=== PATIENT | female | born 1955 | race Caucasian/White ===

== ENCOUNTER → 2019-02-18 09:55 | Outpatient (BNVA) | payer SELFPAY | PROVIDERS: Family Provider Registered Nurse; PCP Registered Nurse; Visit Provider Nurse Practitioner Psychiatric/Mental Health | DX: F33.3 Major depressive disorder, recurrent, severe with psychotic symptoms; F41.1 Generalized anxiety disorder; F41.0 Panic disorder [episodic paroxysmal anxiety] | CPT/HCPCS: 99214 ==

== ENCOUNTER → 2019-05-29 08:04 | Outpatient (BNVA) | payer SELFPAY | PROVIDERS: Family Provider Registered Nurse; PCP Registered Nurse; Visit Provider Counselor Professional | DX: F41.0 Panic disorder [episodic paroxysmal anxiety] (principal); F41.1 Generalized anxiety disorder; F33.3 Major depressive disorder, recurrent, severe with psychotic symptoms; F22 Delusional disorders | CPT/HCPCS: 90834 ==

== ENCOUNTER → 2019-06-03 08:13 | Outpatient (BNVA) | payer SELFPAY | PROVIDERS: Family Provider Registered Nurse; PCP Registered Nurse; Visit Provider Nurse Practitioner Psychiatric/Mental Health | DX: F22 Delusional disorders (principal); F33.3 Major depressive disorder, recurrent, severe with psychotic symptoms; F41.1 Generalized anxiety disorder; F41.0 Panic disorder [episodic paroxysmal anxiety] | CPT/HCPCS: 99214 ==

== ENCOUNTER → 2019-06-05 08:24 | Outpatient (BNVA) | payer SELFPAY | PROVIDERS: Family Provider Registered Nurse; PCP Registered Nurse; Visit Provider Counselor Professional | DX: F22 Delusional disorders (principal); F33.3 Major depressive disorder, recurrent, severe with psychotic symptoms; F41.1 Generalized anxiety disorder; F41.0 Panic disorder [episodic paroxysmal anxiety] | CPT/HCPCS: 90834 ==

== ENCOUNTER → 2019-06-12 08:14 | Outpatient (BNVA) | payer MEDICAID, SELFPAY | PROVIDERS: Family Provider Registered Nurse; PCP Registered Nurse; Visit Provider Counselor Professional | DX: F22 Delusional disorders (principal); F33.3 Major depressive disorder, recurrent, severe with psychotic symptoms; F41.1 Generalized anxiety disorder; F41.0 Panic disorder [episodic paroxysmal anxiety] | CPT/HCPCS: 90834 ==

== ENCOUNTER → 2019-06-15 15:20 | Outpatient (BNVA) | payer SELFPAY | PROVIDERS: Family Provider Registered Nurse; PCP Registered Nurse; Visit Provider Nurse Practitioner Family | DX: N39.0 Urinary tract infection, site not specified (principal) | CPT/HCPCS: 81000 ==

== ENCOUNTER → 2019-06-19 08:24 | Outpatient (BNVA) | payer MEDICAID, SELFPAY | PROVIDERS: Family Provider Registered Nurse; PCP Registered Nurse; Visit Provider Counselor Professional | DX: F41.0 Panic disorder [episodic paroxysmal anxiety] (principal); F41.1 Generalized anxiety disorder; F22 Delusional disorders; F33.3 Major depressive disorder, recurrent, severe with psychotic symptoms | CPT/HCPCS: 90834; 80053; 84439; 84443; 84481 ==

== ENCOUNTER → 2019-06-25 13:02 | Outpatient (BNVA) | payer MEDICAID, SELFPAY | PROVIDERS: Family Provider Registered Nurse; PCP Registered Nurse; Visit Provider Orthopaedic Surgery | DX: M25.532 Pain in left wrist (principal) | CPT/HCPCS: 73110 ==

== ENCOUNTER → 2019-06-26 09:24 | Outpatient (BNVA) | payer MEDICAID, SELFPAY | PROVIDERS: Family Provider Registered Nurse; Visit Provider Counselor Professional | DX: F22 Delusional disorders (principal); F41.0 Panic disorder [episodic paroxysmal anxiety]; F41.1 Generalized anxiety disorder | CPT/HCPCS: 90834 ==

== ENCOUNTER → 2019-07-01 08:07 | Outpatient (BNVA) | payer MEDICAID, SELFPAY | PROVIDERS: Family Provider Registered Nurse; Visit Provider Nurse Practitioner Psychiatric/Mental Health | DX: F22 Delusional disorders (principal); F33.3 Major depressive disorder, recurrent, severe with psychotic symptoms; F41.1 Generalized anxiety disorder; F41.0 Panic disorder [episodic paroxysmal anxiety] | CPT/HCPCS: 99214 ==

== ENCOUNTER → 2019-07-02 08:20 | Outpatient (BNVA) | payer MEDICAID, SELFPAY | PROVIDERS: Family Provider Registered Nurse; Visit Provider Counselor Professional | DX: F41.0 Panic disorder [episodic paroxysmal anxiety] (principal); F41.1 Generalized anxiety disorder; F33.3 Major depressive disorder, recurrent, severe with psychotic symptoms; F22 Delusional disorders | CPT/HCPCS: 90834 ==

== ENCOUNTER → 2019-07-08 16:27 | Outpatient (BNVA) | payer MEDICAID, SELFPAY | PROVIDERS: Family Provider Registered Nurse; Visit Provider Internal Medicine | DX: G25.81 Restless legs syndrome (principal); Z12.11 Encounter for screening for malignant neoplasm of colon | CPT/HCPCS: 82607; 82746 ==

== ENCOUNTER → 2019-07-15 08:37 | Outpatient (BNVA) | payer MEDICAID, SELFPAY | PROVIDERS: Family Provider Registered Nurse; Visit Provider Counselor Professional | DX: F22 Delusional disorders (principal); F41.0 Panic disorder [episodic paroxysmal anxiety] | CPT/HCPCS: 90834 ==

== ENCOUNTER 2019-07-17 08:29 | Day surgery (SDC) | payer MEDICAID, SELFPAY ==
[2019-07-16 12:18] VITALS: BMI 35.4
[2019-07-17] VITALS (7 sets, daily range): BP systolic 102–192; BP diastolic 74–150; PULSE 70–100; RESP 17–24; TEMP 36.2–36.9; O2SAT 92–99
--- NOTE | 2019-07-17 | SCC_ITS ---
Procedure Done: Removal of deep hardware left distal radius and left distal ulna 4.3 seconds of fluoroscopic guidance, for a cumulative dose of 0.09 mGy, was provided to Dr. Vaca by the radiology department. C-arm images of the LEFT wrist were saved for the patient's permanent record. [facility]
--- NOTE | 2019-07-17 | XR_ITS ---
WS: [id number] XR wrist LT 2V [id number] REASON FOR EXAM: Hardwear removal FINDINGS: Interoperative hardware removal from the radius is noted the fracture line is seen but not open and shows good callus formation. XR/XR wrist LT 2V [id number] IMPRESSION: Removal of hardware from the radius.
--- NOTE | 2019-07-17 07:10 | W.PM.OPSUD ---
Surgery/Procedure H&P Update DATE OF PROCEDURE: July 17, 2019 DATE H&P PERFORMED: 06/25/19 H&P UPDATE INFORMATION: I have reviewed H&P completed within last 30 days, I have examined patient prior to procedure, No changes to prior documentation and H&P is in [facility] [place] [facility] EMR on date indicated PREOP DIAGNOSIS: retained harware left distal radius and ulna PRIMARY INDICATION FOR PROCEDURE: as above PLANNED PROCEDURE: Operation Date: 07/17/19 10:20 Proposed Procedures p Left wrist hardware removal 15614 S52.502A(Left) - Jose Vaca DO
--- NOTE | 2019-07-17 07:15 | PM.OP ---
Operative Report Date of procedure: July 17, 2019 Pre-op Diagnosis: retained harware left distal radius and ulna Post-op diagnosis: same Post-op Findings: healed fractures left distal radius and u Procedure Done: Removal of deep hardware left distal radius and left distal ulna Specimens removed/disposition: hardware removed and disposed of in OR Pathology: none sent Anesthesia: General and Nerve Block (Preoperative axillary nerve block for postoperative pain relief) Estimated blood loss (mL): 5 Tourniquet time (min): 77 (250 mmHg pressure) Complications: no apparent complications Findings: healed fractures left distal radius and ulna Condition: stable Disposition: PACU Brief History: 63-year-old white female who was previously undergone open reduction internal fixation of distal radius and ulna fractures with plate and screw fixation of both the distal radius and ulna fractures. She has some complaints of pain in and about her left wrist. She has that she has incomplete supination. She also notes that she has some decreased range of motion following surgery with regards to supination and pronation. Examination shows well-healed surgical scars. X-ray showed no obvious complication from her implants. We discussed with her that her implants could be causing her some discomfort. Risks of surgery include aren't limited to failure to relieve all symptoms. No gain in range of motion with either palmar flexion dorsiflexion of the wrist or with supination. There is the potential for nerve/blood vessel/tendon injury. There is potential for refracture. There can be wound healing complications. Medical complications of surgery can include blood clots, heart attack, stroke risk up to including . All questions were answered the patient was agreeable to proceed with surgery. Procedure: 1.5 g Zinacef The patient was identified. The surgical site was signed. Surgical permit was signed. Patient received a left-sided axillary nerve block for postoperative analgesia while in the preoperative holding area. The patient received 1.5 g of Zinacef intravenously for surgical prophylaxis. She was taken back to the operating room. She is placed supine on the operating room table. She is placed under general anesthesia without difficulty. A tourniquet was placed but the upper aspect of left upper extremity. The left upper extremity was then sterilely prepped and draped usual fashion. A timeout was performed. The operative limb was exsanguinated using Esmarch bandage and the tourniquet inflated to 250 mmHg pressure. With a skin knife we utilized a portion of the patient's incision over the distal ulna. Full-thickness skin flaps were made. We incised the antebrachial fascia and extended this to open the tendon sheath of the extensor carpi ulnaris tendon. The tendon was mobilized and the underlying plate and screws was identified. Using a periosteal elevator expose the underlying plate and screws. The screws were then removed with appropriate size screwdriver and the plate removed using a periosteal elevator to lever the plate off of the bone. The fracture was healed. We used a rongeur to remove placed areas of bony ingrowth around the screws and plate. This was then flushed. The wound was irrigated with Betadine-containing saline solution and antibiotic containing saline solution. We repaired the extensor carpi ulnaris tendon sheath with sutures of 4-0 Monocryl. Incision was then closed in layers with 4-0 nylon on skin. We now turned our attention to removal of the volar plate from the distal radius. Using a skin knife we used a portion of the patient's previous incision make full thickness skin flaps. We then identified the flexor carpi radialis tendon and mobilize the tendon and retracted radially. We then used blunt dissection to mobilize the flexor tendons and median nerve and ulnar direction. A self-retaining retractors placed in the wound. We used a knife followed by a periosteal elevator to sweep the pronator quadratus tendon from radial to ulnar to expose the underlying plate. We used a periosteal elevator to elevate bursal tissue that had grown over the plate. The plate was removed after a series of locking and nonlocking screws as well as pegs from the distal row of the plate were removed. Once the plate and screws removed from the used a rongeur to smooth the undersurface of the radius. The wound was irrigated Betadine-containing saline solution and antibiotic containing saline solution. Incision was closed in layers of 4-0 nylon on skin. Now that the hardware was removed to place the wrist through a range of motion. The patient came to full pronation easily as she had done prior to surgery. Is able to achieve near full supination while she was under anesthesia. As able to extend her wrist passively to 45? of palmar flex to 60?. Antibiotic ointment was now applied to the incision lines. Sterile dressings were applied and the patient was placed in a short arm plaster splint with an Glynn overwrap. Tourniquet was deflated during application of dressings. The patient was aroused from anesthesia. She was taken to the recovery room. She tolerated surgery well. All counts are correct.
[2019-07-17] MEDS: sodium chloride 0.9% 1,000 ML 30 ML IV (09:20)
--- NOTE | 2019-07-17 09:26 | ANES.PREANE2 ---
Pre-Anesthetic Assessment Pre-Anesthetic Assessment: Height/Weight: Height 1.6 m Weight 90.718 kg Temp Pulse Resp BP Pulse Ox 97.9 F 70 18 134/84 97 07/17/19 08:50 07/17/19 08:50 07/17/19 08:50 07/17/19 08:50 07/17/19 08:50 Preop Diagnosis: c Proposed Procedure: Operation Date: 07/17/19 10:20 Proposed Procedures p Left wrist hardware removal 34044 S52.502A(Left) - Jose Vaca DO Last intake: Intake Last Liquid Date 07/16/19 Last Liquid Time 21:00 Last Solid Date 07/16/19 Last Solid Time 21:00 Social: Social History: No alcohol and No tobacco Exam: Pre-Anes Outpt Exam: alert, oriented x 3, clear to auscultation bilaterally and regular rate & rhythm Airway: Submandibular: WNL Cervical ROM: WNL MP: 2 Dentition: Partials (lower) History/ROS: No significant history except as noted Pulmonary: Pulmonary: None reported CV/HEM: CV/HEM: None reported : : None reported Hepatic: Hepatic: None reported GI: GI: None reported Metabolic: Metabolic: Thyroid Musc/skel: Musc/skel: None reported Neuropsych: Neuropsych: Anxiety and Depression Comments: RLS Anesthetic Plan: ASA status: 2 Anesthesia: Anesthesia Evaluation and General Risk of > 500 ml blood loss (7ml/kg in children): No Meds/Allergies Current Medications: Current Medications Generic Name Dose Route Start Last Admin Trade Name Freq PRN Reason Stop Dose Admin Sodium Chloride 1,000 mls @ 30 ml s/hr 07/17/19 08:45 07/17/19 09:20 Sodium Chloride 0.9% IV 07/18/19 08:44 30 mls/hr .Q24H JADE Administration PFSH Anesthesia PFSH: Medical History Delusional disorders Depression, major, recurrent, 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
[2019-07-17] MEDS: ketorolac 30 mg/mL INJ IVP (09:58)
[2019-07-17] MEDS: cefUROXime 1,500 MG in sodium chloride 0.9% (plus) 50 ML 100 MG IV (10:15)
[2019-07-17] MEDS: neomycin-poly-bacitracin oint 28 gm 1 APPLIC TOPICAL (11:05)
--- NOTE | 2019-07-17 12:06 | SUR.PHASEI ---
1205 PATIENT TO PACU AT THIS TIME. ORAL AIRWAY IN PLACE. RR EVEN AND UNLABORED. PLACED ON SIMPLE MASK AT 8L. SPO2 99%. DRESSING TO LEFT WRIST, CDI.
--- NOTE | 2019-07-17 12:11 | SUR.PHASEI ---
1208 ORAL AIRWAY REMOVED AT THIS TIME. SPO2 99% ON SIMPLE MASK AT 8L.
--- NOTE | 2019-07-17 12:30 | SUR.PHASEI ---
1227 PATIENT TO OPS AT THIS TIME FROM PACU. PAIN 04/21, DENIES NAUSEA, TOLERATING ICE CHIPS. DRESSING TO LEFT WRIST, CDI.
== END 2019-07-17 13:23 | disposition home or self-care (01) ==
PROVIDERS: PCP Family Medicine; Visit Provider Orthopaedic Surgery
PROC: (CPT 20680; principal; 2019-07-17 10:20)
DX: T84.84XA Pain due to internal orthopedic prosthetic devices, implants and grafts, initial encounter (principal); E03.9 Hypothyroidism, unspecified
CPT/HCPCS: 20680; 12345; 73100; 76000; 96365; 96374; J0131; J0697; J1580; J1885; J2001; J2704; J3010; J3490; J7030

== ENCOUNTER → 2019-07-23 08:34 | Outpatient (BNVA) | payer MEDICAID, SELFPAY | PROVIDERS: PCP Family Medicine; Visit Provider Counselor Professional | DX: F41.0 Panic disorder [episodic paroxysmal anxiety] (principal); F22 Delusional disorders | CPT/HCPCS: 90834 ==

== ENCOUNTER → 2019-07-24 09:56 | Outpatient (BNVA) | payer MEDICAID, SELFPAY | PROVIDERS: PCP Family Medicine; Visit Provider Orthopaedic Surgery | DX: T84.82XA 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, implants and grafts, initial encounter (principal) | CPT/HCPCS: 73110 ==

== ENCOUNTER 2019-07-24 10:58 | Outpatient (CLI) | payer SELFPAY | END 2019-07-24 10:59 | disposition home or self-care (01) | LOC: SPT 10:59 | PROVIDERS: PCP Family Medicine; Visit Provider Orthopaedic Surgery | DX: Z47.89 Encounter for other orthopedic aftercare (principal) | CPT/HCPCS: 97760; L3908 ==

== ENCOUNTER 2019-07-25 08:22 | Day surgery (SDC) | payer MEDICAID, SELFPAY ==
[2019-07-23 13:32] VITALS: BMI 36.8
[2019-07-25 08:35] VITALS: BP 152/88; PULSE 90; RESP 18; TEMP 36.4; O2SAT 94
[2019-07-25] MEDS: sodium chloride 0.9% 1,000 ML 30 ML IV (08:49)
--- NOTE | 2019-07-25 08:51 | ANES.PREANE2 ---
Pre-Anesthetic Assessment Pre-Anesthetic Assessment: Height/Weight: Height 1.6 m Weight 94.347 kg Temp Pulse Resp BP Pulse Ox 97.5 F L 90 18 152/88 94 07/25/19 08:35 07/25/19 08:35 07/25/19 08:35 07/25/19 08:35 07/25/19 08:35 Preop Diagnosis: c Proposed Procedure: Operation Date: 07/25/19 09:30 Proposed Procedures p Colonoscopy 32294 Z12.11(Not Applicable) - Cristi Miller MD Was Beta Chip taken within 24 hours: N/A Last intake: Intake Last Liquid Date 07/24/19 Last Liquid Time 22:00 Last Solid Date 07/23/19 Last Solid Time 20:00 Social: Social History: No alcohol and No tobacco Exam: Pre-Anes Outpt Exam: alert, oriented x 3, clear to auscultation bilaterally and regular rate & rhythm Airway: Submandibular: WNL Cervical ROM: WNL MP: 2 Dentition: Full History/ROS: No significant history except as noted Pulmonary: Pulmonary: None reported CV/HEM: CV/HEM: None reported : : None reported Hepatic: Hepatic: None reported GI: GI: None reported Metabolic: Metabolic: Thyroid Musc/skel: Musc/skel: None reported Neuropsych: Neuropsych: Depression Anesthetic Plan: ASA status: 2 Anesthesia: MAC Meds/Allergies Current Medications: Current Medications Generic Name Dose Route Start Last Admin Trade Name Freq PRN Reason Stop Dose Admin Sodium Chloride 1,000 mls @ 30 ml s/hr 07/25/19 08:45 07/25/19 08:49 Sodium Chloride 0.9% IV 07/26/19 08:44 30 mls/hr .Q24H JADE Administration PFSH Anesthesia PFSH: Medical History Delusional disorders Depression, major, recurrent, 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
--- NOTE | 2019-07-25 09:37 | W.PM.OPSFHP ---
Same Day Surgery H&P Indication for Procedure/HPI DATE OF PROCEDURE: July 25, 2019 CHIEF COMPLAINT/INDICATIONFOR SURGICAL PROCEDURE: Routine screening average risk PREOP DIAGNOSIS: c PLANNED PROCEDRUE: Operation Date: 07/25/19 09:30 Proposed Procedures p Colonoscopy 51774 Z12.11(Not Applicable) - Cristi Miller MD Medications/Allergies* Allergies/Adverse Reactions Allergy/AdvReac Type Severity Reaction Status Date / Time poison leslie extract Allergy Unknown rash Verified 07/24/19 10:02 haloperidol [From Haldol] AdvReac Unknown Unknown Verified 07/24/19 10:02 Current Medications: Generic Name Dose Route Start Last Admin Trade Name Freq PRN Reason Stop Dose Admin Sodium Chloride 1,000 mls @ 30 mls/hr 07/25/19 08:45 07/25/19 08:49 Sodium Chloride 0.9% IV 07/26/19 08:44 30 mls/hr .Q24H JADE Administration Pertinent History/Comorbid Conditions* Medical History (Updated 07/08/19 @ 13:34 by Cristi Miller MD) Delusional disorders Depression, major, recurrent, 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, implants and grafts, initial encounter Frontal lobe dementia Generalized anxiety disorder with panic attacks 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 Panic disorder Restless leg syndrome Surgical History (Updated 02/14/19 @ 14:06 by Sharifa Doss LPN) History of partial hysterectomy History of tonsillectomy and adenoidectomy Hx of bilateral breast reduction surgery Hx of cholecystectomy Social History Smoking and tobacco status: never smoked Alcohol intake: never History of recent travel: No Pertinent Exam Findings alert, oriented x 3, clear to auscultation bilaterally, regular rate & rhythm, operative site marked and procedure specific exam findings Recommendations Surgery/Procedure today Coding Level of Care Code Acute Firer Low Pressure for Emre Staples
[2019-07-25 10:09] VITALS: BP 146/71; PULSE 97; RESP 18; TEMP 36.8; O2SAT 96
[2019-07-25 10:23] VITALS: BP 126/76; PULSE 94; RESP 18; O2SAT 94
--- NOTE | 2019-07-25 10:36 | ANE.PACU2 ---
Inpatient post-anesthesia follow up: Airway intact: Yes Vital signs: Temperature 98.2 F Pulse Rate 94 Respiratory Rate 18 Blood Pressure 126/76 Pulse Oximetry 94 Oxygen Delivery Me thod Room Air Oxygen Flow Rate Fraction of Inspir ed Oxygen Hydration adequate: Yes Nausea and vomiting: No Mental status: Baseline
== END 2019-07-25 10:27 | disposition home or self-care (01) ==
PROVIDERS: PCP Family Medicine; Visit Provider Internal Medicine
PROC: 0DJD8ZZ Inspection of Lower Intestinal Tract, Via Natural or Artificial Opening Endoscopic (ICD-10-PCS; CPT 45378; principal; 2019-07-25 09:30)
DX: Z12.11 Encounter for screening for malignant neoplasm of colon (principal); F32.9 Major depressive disorder, single episode, unspecified; F33.9 Major depressive disorder, recurrent, unspecified; F41.9 Anxiety disorder, unspecified; E03.9 Hypothyroidism, unspecified
CPT/HCPCS: 12345; 45378; J2704; J3490; J7030

== ENCOUNTER → 2019-08-01 07:38 | Outpatient (BNVA) | payer SELFPAY | PROVIDERS: PCP Family Medicine; Visit Provider Nurse Practitioner Psychiatric/Mental Health | DX: F22 Delusional disorders (principal); F33.3 Major depressive disorder, recurrent, severe with psychotic symptoms; F41.1 Generalized anxiety disorder; F41.0 Panic disorder [episodic paroxysmal anxiety]; F43.12 Post-traumatic stress disorder, chronic | CPT/HCPCS: 99214 ==

== ENCOUNTER → 2019-08-06 12:36 | Outpatient (BNVA) | payer MEDICAID, SELFPAY | PROVIDERS: PCP Family Medicine; Visit Provider Specialist | DX: F22 Delusional disorders (principal); F41.1 Generalized anxiety disorder; F41.0 Panic disorder [episodic paroxysmal anxiety]; F33.3 Major depressive disorder, recurrent, severe with psychotic symptoms | CPT/HCPCS: 96116; 99215 ==

== ENCOUNTER → 2019-08-07 08:29 | Outpatient (BNVA) | payer MEDICAID, SELFPAY | PROVIDERS: PCP Family Medicine; Visit Provider Counselor Professional | DX: F22 Delusional disorders (principal); F33.3 Major depressive disorder, recurrent, severe with psychotic symptoms; F41.1 Generalized anxiety disorder; F41.0 Panic disorder [episodic paroxysmal anxiety] | CPT/HCPCS: 90834 ==

== ENCOUNTER 2019-08-08 09:42 | Outpatient (CLI) | payer MEDICAID, SELFPAY ==
--- NOTE | 2019-08-08 09:54 | MR_ITS ---
WS: [id number] MRI BRAIN WITHOUT CONTRAST HISTORY: DELUSIONAL DISORDERS COMPARISON: 03/23/2016 TECHNIQUE: Diffusion imaging, multiplanar T1, T2 and FLAIR imaging obtained. No evidence for acute infarct or hemorrhage. Cleary-white matter differentiation is normal. No acute infarct. There are numerous scattered T2 and FLAIR signal hyperintensities in the periventri cular and subcortical white matter which have not significantly progressed. Mild atrophy. Ventricles and extra-axial spaces are normal. No inferior displacement of cerebellar tonsils. The sella turcica and pituitary gland are unremarkabl e. Posterior fossa is also unremarkable. Dural venous sinuses and knik of Wheeler demonstrate no abnormality on this unenhanced studies. Paranasal sinuses: Clear. Mastoid air cells: Normal. Calvarium and scalp: Intact. MR/MR head wo con* [id number] IMPRESSION: 1. No acute infarct. 2. Mild atrophy and mild chronic microvascular ischemic disease. Similar appea ba to 03/23/2016.
== END 2019-08-08 09:43 | disposition home or self-care (01) ==
LOC: RADSHAW 09:46
PROVIDERS: PCP Family Medicine; Visit Provider Specialist
DX: F22 Delusional disorders (principal)
CPT/HCPCS: 70551

== ENCOUNTER → 2019-08-12 18:00 | Outpatient (BNVA) | payer MEDICAID, SELFPAY | PROVIDERS: PCP Family Medicine; Visit Provider Family Medicine | DX: E03.9 Hypothyroidism, unspecified (principal); E03.8 Other specified hypothyroidism; E06.3 Autoimmune thyroiditis; I10 Essential (primary) hypertension; R60.0 Localized edema; R10.9 Unspecified abdominal pain | CPT/HCPCS: 84439; 84443; 84481 ==

== ENCOUNTER → 2019-08-14 15:00 | Outpatient (BNVA) | payer MEDICAID, SELFPAY | PROVIDERS: Visit Provider Counselor Professional | DX: F22 Delusional disorders (principal); F33.3 Major depressive disorder, recurrent, severe with psychotic symptoms; F41.1 Generalized anxiety disorder; F41.0 Panic disorder [episodic paroxysmal anxiety] | CPT/HCPCS: 90834 ==

== ENCOUNTER → 2019-11-04 12:39 | Outpatient (BNVA) | payer MEDICAID, SELFPAY | PROVIDERS: Visit Provider Nurse Practitioner Family | DX: Z20.828 Contact with and (suspected) exposure to other viral communicable diseases (principal) | CPT/HCPCS: 87635 ==

== ENCOUNTER 2019-11-07 14:36 | Inpatient (IN) | payer MEDICAID, SELFPAY ==
[2019-11-07 14:59] VITALS: BP 154/94; PULSE 93; RESP 18; TEMP 36.4; O2SAT 96; BMI 35.4
[2019-11-07 15:59] LABS: Amphetamines Screen Urine Negative (Negative); Barbiturates Screen Urine Negative (Negative); Benzodiazepines Screen Urine Negative (Negative); Cocaine Screen Urine Negative (Negative); Opiate Screen Urine Negative (Negative); PCP Screen Urine Negative (Negative); THC Screen Urine Negative (Negative)
[2019-11-07 16:05] LABS: Add Urine Microscopic? YES; Bilirubin Urine Neg (Negative); Blood Urine 2+ (Negative); Glucose Urine UA Norm (Normal); Ketones Urine Negative (Negative); Leukocyte Esterase Urine Negative (Negative); Nitrate Urine Negative (Negative); Protein Urine Neg (Negative); Urine Appearance SL Hazy (CLEAR); Urine Color Yellow (Yellow); Urobilinogen Urine Neg (Negative); pH Urine 5 (5-7)
[2019-11-07 16:06] LABS: Add Urine Culture? Yes; Bacteria Urine 1+ /hpf; Mucus Urine 2+ /hpf; RBC Urine 0-4 /hpf (0-2); Squamous Epithelial Cell Urine 0-4 /hpf (0-5); WBC Urine 0-4 /hpf (0-5)
--- NOTE | 2019-11-07 16:14 | XR_ITS ---
WS: [id number] Portable AP upright chest, 11/07/2019 Clinical Data: altered thought process Comparison: PA and lateral chest, 11/10/2017. Findings: No nodules, masses or effusions are seen. The heart is normal. The pulmonary vascularity is not increased. No pneumonia or pneumothorax is seen. The aortic arch and descending aorta are minima lly tortuous. XR/XR chest 1V portable [id number] Impression: Atherosclerosis.
--- NOTE | 2019-11-07 16:14 | ECG_ITS ---
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 Measurements Intervals [place] Rate: 73 P: 57 VT: 165 QRS: 33 QRSD: 85 T: 42 QT: 374 QTc: 413 Interpretive Statements SINUS RHYTHM Compared to ECG 11/10/2017 21:37:39 No significant changes Electronically Signed On 11-07-2019 16:34:27 CDT by Alan Valdes M.D. [id number]
[2019-11-07 16:22] LABS: Basophils % 0.2 %; Hematocrit 46.7 % (37.0-47.0); Hemoglobin 15.2 g/dL (11.5-15.3); Lymphocytes # 1.4 10^3/uL (0.8-4.8); Lymphocytes % 23.1 %; Mean Corpuscular HGB Conc 32.5 g/dL (30.0-36.0); Mean Corpuscular Hemoglobin 29.2 pg (28.0-34.0); Mean Corpuscular Volume 89.8 fL (81-99); Mean Platelet Volume 10.5 fL (7.4-10.4); Monocytes # 0.5 10^3/uL (0.2-0.9); Neutrophils # 4.18 10^3/uL (1.8-7.7); Neutrophils % 68.5 %; Nucleated Red Blood Cells % 0 %; Platelet Count 232 10^3/cmm (130-400); Red Cell Distribution Width 12.2 % (12.1-15.1); White Blood Count 6.1 10^3/uL (4.0-10.0)
[2019-11-07] MEDS: LORazepam 1 mg Tablet PO (16:43)
--- NOTE | 2019-11-07 16:54 | ED_ITS ---
Documented by User: Sarah Ro 11/07/19 16:59 HPI - Psych General: Chief Complaint: Psychiatric Symptoms Stated Complaint: MHE Time Seen by Provider: 11/07/19 15:46 Source: patient Mode of arrival: ambulatory Limitations: no limitations History of Present Illness: HPI Narrative: Pt presents to ER stating she is having auditory and visual hallucinations. Pt states she thinks the FBI is sending her coded messages and that her family is in danger. Pt states she stopped taking her behavioral meds back in August due to sisde effects. Pt denies SI or HI. Pt states she has had to have admission for this behavior in the past. Pt denies and other complaints. PT afebrile denies urinary symptoms denies chest pain SOB denies abd pain History of same: Yes Relieving factors: none Exacerbating factors: none Associated psychiatric symptoms: auditory hallucinations, visual hallucinations and delusions Associated symptoms: Reports auditory hallucinations, visual hallucinations and delusions; Deny depression, homicidal ideation, suicidal ideation or racing thoughts Treatments prior to arrival: none Review of Systems General: Reports: 10 or more systems reviewed and unremarkable except in HPI and below Const: Denies: fever(s) or chills Eyes: Denies: change in vision, blurry vision or blind spots Card: Denies: chest pain or palpitations Resp: Denies: dyspnea, productive cough, non-productive cough, wheezing, stridor or pain on inspiration GI: Denies: abdominal pain, nausea or vomiting : Denies: flank pain, difficulty voiding, dysuria or urinary frequency Musc: Denies: neck pain, back pain, extremity pain or extremity swelling Skin/Breast: Denies: rash or pruritus Psych: Reports: visual hallucinations and auditory hallucinations; Denies: depression, suicidal ideation or homicidal ideation [facility] ED PFSH: Medical History Delusional disorders Depression, major, recurrent, 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, implants and grafts, initial encounter Frontal lobe dementia Generalized anxiety disorder with panic attacks 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 Panic disorder Restless leg syndrome Surgical History History of partial hysterectomy History of tonsillectomy and adenoidectomy Hx of bilateral breast reduction surgery Hx of cholecystectomy Status post hardware removal Social History Smoking and tobacco status: never smoked Alcohol intake: never History of recent travel: No Financial difficulty paying for basics: Decline to Answer Physical Exam Const: COMMON NORMALS: no acute distress, average body habitus, patient oriented x3, no limitations, healthy appearing, alert and well nourished HENMT: COMMON NORMALS: normocephalic, atraumatic, hearing grossly normal bilaterally, external ears normal, EAC's normal, TM's normal bilaterally, Normal external nose present, Normal nasal mucous membranes and turbinates present, moist oral mucous membranes, oropharynx normal, dentition normal and gingiva normal HEAD & SCALP: normocephalic and atraumatic NOSE: Normal external nose present and Normal nasal mucous membranes and turbinates present EXTERNAL EAR: Yes external ears normal EXTERNAL AUDITORY CANAL: EAC's normal TYMPANIC MEMBRANE: TM's normal bilaterally Eye: COMMON NORMALS: Equal, round and reactive pupils present, EOMs intact bilaterally, conjunctivae normal, no scleral icterus, no papilledema, normal visual garza by confrontation and fundi normal bilaterally CONJUNCTIVA: Yes conjunctivae normal PUPIL: Yes Equal, round and reactive pupils present DIRECT OPHTHALMOSCOPY: Yes no papilledema and Yes fundi normal bilaterally Neck/C-Spine: COMMON NORMALS: full ROM, no lymphadenopathy, supple, no meningeal signs, no JVD, Thyroid normal and No carotid bruits THYROID: Thyroid normal Lymph: LYMPHATIC: no lymphadenopathy noted Chest: COMMONS NORMALS: normal inspection of the chest, normal palpation of entire chest wall, normal inspection of the breasts and normal palpation of the breasts Resp: COMMON NORMALS: normal respiratory effort, No retractions, No use of accessory muscles, clear to auscultation bilaterally and percussion normal AUSCULTATION: clear to auscultation bilaterally PERCUSSION: percussion normal Cardio: COMMON NORMALS: no JVD, regular rate and regular rhythm RATE: regular rate RHYTHM: regular rhythm GI: COMMON NORMALS: Normal to inspection, nondistended, normoactive bowel sounds present, Soft to palpation, non-tender, No hepatosplenomegaly present, no masses and no bruits PALPATION: Yes Soft to palpation and Yes No hepatosplenomegaly present : COMMON NORMALS: Yes normal external appearance, Yes normal appearance of the vagina, Yes normal appearance of the cervix, Yes No adnexal tenderness and Yes no masses Extremity: COMMON NORMALS: normal to inspection, full ROM, capillary refill normal, no joint enlargement, no clubbing, cyanosis or edema, no calf tenderness and no pedal edema Neuro: COMMON NORMALS: patient oriented x3, CN's II-XII intact bilaterally, moves all extremities, no focal motor deficits, no sensory deficits noted, deep tendon reflexes 2+ bilaterally and gait normal SENSORIUM/ORIENTATION: Yes alert MENINGEAL SIGNS: Yes no meningeal signs Psych: COMMON NORMALS: speech normal, denies homicidal ideation and denies suicidal ideation APPEARANCE: Yes grossly normal ATTITUDE: Yes paranoid, Yes Withdrawn affect present and Yes Guarded attititude/behavior present ACTIVITY/MOTOR BEHAVIOR: Yes appropriate eye contact SPEECH: Yes normal speech MOOD & AFFECT: Yes anxious, Yes fearful and Yes Flat affect present THOUGHT PROCESS: disorganized and Flight of ideas present THOUGHT CONTENT: Yes delusions ATTENTION/CONCENTRATION: Yes attention grossly intact MEMORY/COGNITION: Yes memory grossly intact INSIGHT: questionable JUDGEMENT: questionable MDM - Psych Lab Data: Labs: Lab Results 11/07/19 11/07/19 11/07/19 Range/Units 15:34 15:34 16:14 WBC 6.1 (4.0-10.0) 10^3/ uL RBC 5.20 (4.1-5.3) 10^6/u L Hgb 15.2 (11.5-15.3) g/dL Hct 46.7 (37.0-47.0) % MCV 89.8 (81-99) fL MCH 29.2 (28.0-34.0) pg MCHC 32.5 (30.0-36.0) g/dL RDW 12.2 (12.1-15.1) % Plt Count 232 (130-400) 10^3/c mm MPV 10.5 H (7.4-10.4) fL Neut % (Auto) 68.5 % Lymph % (Auto) 23.1 % Campbell % (Auto) 8.0 % Eos % (Auto) 0.0 % Baso % (Auto) 0.2 % Neut # (Auto) 4.18 (1.8-7.7) 10^3/u L Lymph # (Auto) 1.4 (0.8-4.8) 10^3/u L Campbell # (Auto) 0.5 (0.2-0.9) 10^3/u L Eos # (Auto) 0.0 (0.0-0.8) 10^3/u L Baso # (Auto) 0.0 (0.0-0.1) 10^3/u L Nucleated RBC % (a uto) 0 % Nucleated RBCs # 0.0 /100WBC Sodium (136-145) mmol/L Potassium (3.5-5.1) mmol/L Chloride (98-107) mmol/L Carbon Dioxide (22-29) mmol/L Anion Gap (5-19) BUN (8-23) mg/dL Creatinine (0.5-0.9) mg/dL GFR Calculation (90-130) mL/min Glucose (65-115) mg/dL Calculated Osmolal ity (285-295) mOsm/k g Calcium (8.5-10.5) mg/dL Total Bilirubin (0.15-1.2) mg/dL AST (0-32) U/L ALT (0-33) U/L Alkaline Phosphata se (35-105) IU/L Total Protein (6.6-8.7) g/dL Albumin (3.5-5.2) g/dL Globulin (1.3-4.6) g/dL TSH (0.27-4.20) uIU/ mL Urine Color Yellow (Yellow) Urine Appearance Sl hazy (CLEAR) Urine pH 5 (5-7) Ur Specific Gravit y 1.020 (1.005-1.030) Urine Protein Neg (Negative) Urine Glucose (UA) Norm (Normal) Urine Ketones Negative (Negative) Urine Blood 2+ H (Negative) Urine Nitrate Negative (Negative) Urine Bilirubin Neg (Negative) Urine Urobilinogen Neg (Negative) mg/dL Ur Leukocyte [place] ase Negative (Negative) Urine RBC 0-4 H (0-2) /hpf Urine WBC 0-4 H (0-5) /hpf Ur Squamous Epith Cells 0-4 H (0-5) /hpf Amorphous Sediment Not Reportable Urine Bacteria 1+ H (NONE) /hpf Urine Mucus 2+ /hpf Salicylates (3-10) mg/dL Urine Opiates Scre en Negative (Negative) ng/mL Acetaminophen (10-30) ug/mL Ur Barbiturates Sc reen Negative (Negative) ng/mL Ur Phencyclidine S crn Negative (Negative) ng/mL Ur Amphetamines Sc reen Negative (Negative) ng/mL U Benzodiazepines Scrn Negative (Negative) ng/mL [place] (0.6-1.2) mmol/L Urine Cocaine Scre en Negative (Negative) ng/mL U Marijuana (THC) Screen Negative (Negative) ng/mL Ethyl Alcohol (0-10) mg/dL 11/07/19 11/07/19 11/07/19 Range/Units 16:14 16:14 16:42 WBC (4.0-10.0) 10^3/ uL RBC (4.1-5.3) 10^6/u L Hgb (11.5-15.3) g/dL Hct (37.0-47.0) % MCV (81-99) fL MCH (28.0-34.0) pg MCHC (30.0-36.0) g/dL RDW (12.1-15.1) % Plt Count (130-400) 10^3/c mm MPV (7.4-10.4) fL Neut % (Auto) % Lymph % (Auto) % Campbell % (Auto) % Eos % (Auto) % Baso % (Auto) % Neut # (Auto) (1.8-7.7) 10^3/u L Lymph # (Auto) (0.8-4.8) 10^3/u L Campbell # (Auto) (0.2-0.9) 10^3/u L Eos # (Auto) (0.0-0.8) 10^3/u L Baso # (Auto) (0.0-0.1) 10^3/u L Nucleated RBC % (a uto) % Nucleated RBCs # /100WBC Sodium 139 (136-145) mmol/L Potassium 3.3 L (3.5-5.1) mmol/L Chloride 99 (98-107) mmol/L Carbon Dioxide 29 (22-29) mmol/L Anion Gap 14.3 (5-19) BUN 16 (8-23) mg/dL Creatinine 1.0 H (0.5-0.9) mg/dL GFR Calculation 56.2 L (90-130) mL/min Glucose 97 (65-115) mg/dL Calculated Osmolal ity 289 (285-295) mOsm/k g Calcium 9.9 (8.5-10.5) mg/dL Total Bilirubin 0.3 (0.15-1.2) mg/dL AST 22 (0-32) U/L ALT 23 (0-33) U/L Alkaline Phosphata se 77 (35-105) IU/L Total Protein 6.9 (6.6-8.7) g/dL Albumin 4.2 (3.5-5.2) g/dL Globulin 2.7 (1.3-4.6) g/dL TSH 0.46 (0.27-4.20) uIU/ mL Urine Color (Yellow) Urine Appearance (CLEAR) Urine pH (5-7) Ur Specific Gravit y (1.005-1.030) Urine Protein (Negative) Urine Glucose (UA) (Normal) Urine Ketones (Negative) Urine Blood (Negative) Urine Nitrate (Negative) Urine Bilirubin (Negative) Urine Urobilinogen (Negative) mg/dL Ur Leukocyte [place] ase (Negative) Urine RBC (0-2) /hpf Urine WBC (0-5) /hpf Ur Squamous Epith Cells (0-5) /hpf Amorphous Sediment Urine Bacteria (NONE) /hpf Urine Mucus /hpf Salicylates < 0.3 L (3-10) mg/dL Urine Opiates Scre en (Negative) ng/mL Acetaminophen < 5.0 L Cancelled (10-30) ug/mL Ur Barbiturates Sc reen (Negative) ng/mL Ur Phencyclidine S crn (Negative) ng/mL Ur Amphetamines Sc reen (Negative) ng/mL U Benzodiazepines Scrn (Negative) ng/mL [place] 0.1 L (0.6-1.2) mmol/L Urine Cocaine Scre en (Negative) ng/mL U Marijuana (THC) Screen (Negative) ng/mL Ethyl Alcohol < 10 (0-10) mg/dL Discharge Plan Discharge Admit Provider: Mo Mauro Discharge Date/Time: 11/07/19 20:22 Sign Out Sign Out Data: Patient Sign Out occurred on 11/07/19 at 17:12. Patient's care was discussed, and care was transferred from to GATITO Martínez. 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 Patient has delusions that government is contacting her and sending her messages that her family is in danger. Patient admits to being off of her psych medications for the past 2 months. All psych prescreening labs were performed here in the ED. I contacted Dr. Mauro discussed patient case with him. He agreed to have patient admitted into [facility]. Dr. Castro placed the admitting orders for patient to go to the [facility]. Lab Data: Attestation: I reviewed the patient's lab results. Labs: Lab Results 11/07/19 11/07/19 11/07/19 Range/Units 15:34 15:34 16:14 WBC 6.1 (4.0-10.0) 10^3/ uL RBC 5.20 (4.1-5.3) 10^6/u L Hgb 15.2 (11.5-15.3) g/dL Hct 46.7 (37.0-47.0) % MCV 89.8 (81-99) fL MCH 29.2 (28.0-34.0) pg MCHC 32.5 (30.0-36.0) g/dL RDW 12.2 (12.1-15.1) % Plt Count 232 (130-400) 10^3/c mm MPV 10.5 H (7.4-10.4) fL Neut % (Auto) 68.5 % Lymph % (Auto) 23.1 % Campbell % (Auto) 8.0 % Eos % (Auto) 0.0 % Baso % (Auto) 0.2 % Neut # (Auto) 4.18 (1.8-7.7) 10^3/u L Lymph # (Auto) 1.4 (0.8-4.8) 10^3/u L Campbell # (Auto) 0.5 (0.2-0.9) 10^3/u L Eos # (Auto) 0.0 (0.0-0.8) 10^3/u L Baso # (Auto) 0.0 (0.0-0.1) 10^3/u L Nucleated RBC % (a uto) 0 % Nucleated RBCs # 0.0 /100WBC Sodium (136-145) mmol/L Potassium (3.5-5.1) mmol/L Chloride (98-107) mmol/L Carbon Dioxide (22-29) mmol/L Anion Gap (5-19) BUN (8-23) mg/dL Creatinine (0.5-0.9) mg/dL GFR Calculation (90-130) mL/min Glucose (65-115) mg/dL Calculated Osmolal ity (285-295) mOsm/k g Calcium (8.5-10.5) mg/dL Total Bilirubin (0.15-1.2) mg/dL AST (0-32) U/L ALT (0-33) U/L Alkaline Phosphata se (35-105) IU/L Total Protein (6.6-8.7) g/dL Albumin (3.5-5.2) g/dL Globulin (1.3-4.6) g/dL TSH (0.27-4.20) uIU/ mL Urine Color Yellow (Yellow) Urine Appearance Sl hazy (CLEAR) Urine pH 5 (5-7) Ur Specific Gravit y 1.020 (1.005-1.030) Urine Protein Neg (Negative) Urine Glucose (UA) Norm (Normal) Urine Ketones Negative (Negative) Urine Blood 2+ H (Negative) Urine Nitrate Negative (Negative) Urine Bilirubin Neg (Negative) Urine Urobilinogen Neg (Negative) mg/dL Ur Leukocyte [place] ase Negative (Negative) Urine RBC 0-4 H (0-2) /hpf Urine WBC 0-4 H (0-5) /hpf Ur Squamous Epith Cells 0-4 H (0-5) /hpf Amorphous Sediment Not Reportable Urine Bacteria 1+ H (NONE) /hpf Urine Mucus 2+ /hpf Salicylates (3-10) mg/dL Urine Opiates Scre en Negative (Negative) ng/mL Acetaminophen (10-30) ug/mL Ur Barbiturates Sc reen Negative (Negative) ng/mL Ur Phencyclidine S crn Negative (Negative) ng/mL Ur Amphetamines Sc reen Negative (Negative) ng/mL U Benzodiazepines Scrn Negative (Negative) ng/mL [place] (0.6-1.2) mmol/L Urine Cocaine Scre en Negative (Negative) ng/mL U Marijuana (THC) Screen Negative (Negative) ng/mL Ethyl Alcohol (0-10) mg/dL 11/07/19 11/07/19 11/07/19 Range/Units 16:14 16:14 16:42 WBC (4.0-10.0) 10^3/ uL RBC (4.1-5.3) 10^6/u L Hgb (11.5-15.3) g/dL Hct (37.0-47.0) % MCV (81-99) fL MCH (28.0-34.0) pg MCHC (30.0-36.0) g/dL RDW (12.1-15.1) % Plt Count (130-400) 10^3/c mm MPV (7.4-10.4) fL Neut % (Auto) % Lymph % (Auto) % Campbell % (Auto) % Eos % (Auto) % Baso % (Auto) % Neut # (Auto) (1.8-7.7) 10^3/u L Lymph # (Auto) (0.8-4.8) 10^3/u L Campbell # (Auto) (0.2-0.9) 10^3/u L Eos # (Auto) (0.0-0.8) 10^3/u L Baso # (Auto) (0.0-0.1) 10^3/u L Nucleated RBC % (a uto) % Nucleated RBCs # /100WBC Sodium 139 (136-145) mmol/L Potassium 3.3 L (3.5-5.1) mmol/L Chloride 99 (98-107) mmol/L Carbon Dioxide 29 (22-29) mmol/L Anion Gap 14.3 (5-19) BUN 16 (8-23) mg/dL Creatinine 1.0 H (0.5-0.9) mg/dL GFR Calculation 56.2 L (90-130) mL/min Glucose 97 (65-115) mg/dL Calculated Osmolal ity 289 (285-295) mOsm/k g Calcium 9.9 (8.5-10.5) mg/dL Total Bilirubin 0.3 (0.15-1.2) mg/dL AST 22 (0-32) U/L ALT 23 (0-33) U/L Alkaline Phosphata se 77 (35-105) IU/L Total Protein 6.9 (6.6-8.7) g/dL Albumin 4.2 (3.5-5.2) g/dL Globulin 2.7 (1.3-4.6) g/dL TSH 0.46 (0.27-4.20) uIU/ mL Urine Color (Yellow) Urine Appearance (CLEAR) Urine pH (5-7) Ur Specific Gravit y (1.005-1.030) Urine Protein (Negative) Urine Glucose (UA) (Normal) Urine Ketones (Negative) Urine Blood (Negative) Urine Nitrate (Negative) Urine Bilirubin (Negative) Urine Urobilinogen (Negative) mg/dL Ur Leukocyte [place] ase (Negative) Urine RBC (0-2) /hpf Urine WBC (0-5) /hpf Ur Squamous Epith Cells (0-5) /hpf Amorphous Sediment Urine Bacteria (NONE) /hpf Urine Mucus /hpf Salicylates < 0.3 L (3-10) mg/dL Urine Opiates Scre en (Negative) ng/mL Acetaminophen < 5.0 L Cancelled (10-30) ug/mL Ur Barbiturates Sc reen (Negative) ng/mL Ur Phencyclidine S crn (Negative) ng/mL Ur Amphetamines Sc reen (Negative) ng/mL U Benzodiazepines Scrn (Negative) ng/mL [place] 0.1 L (0.6-1.2) mmol/L Urine Cocaine Scre en (Negative) ng/mL U Marijuana (THC) Screen (Negative) ng/mL Ethyl Alcohol < 10 (0-10) mg/dL Discharge Plan Discharge Admit Provider: Mo Mauro Discharge Date/Time: 11/07/19 20:22 Sign Out Sign Out Data: Patient Sign Out occurred on 11/07/19 at 17:12. Patient's care was discussed, and care was transferred from to GATITO Martínez. Coding Level of Care Code ED Municipal [employer] Judge for Chg Fwd Exam Comprehensive
[2019-11-07 17:07] LABS: Alanine Aminotransferase 23 U/L (0-33); Albumin Level 4.2 g/dL (3.5-5.2); Alkaline Phosphatase 77 IU/L (35-105); Anion Gap 14.3 (5-19); Aspartate Amino Transferase 22 U/L (0-32); Blood Urea Nitrogen 16 mg/dL (8-23); Calcium 9.9 mg/dL (8.5-10.5); Carbon Dioxide 29 mmol/L (22-29); Chloride 99 mmol/L (98-107); Globulin 2.7 g/dL (1.3-4.6); Glomerular Filtration Rate 56.2 mL/min (90-130); Glucose 97 mg/dL (65-115); Osmolality Calculated 289 mOsm/kg (285-295); Potassium 3.3 mmol/L (3.5-5.1); Sodium 139 mmol/L (136-145); Thyroid Stimulating Hormone 0.46 uIU/mL (0.27-4.20); Total Bilirubin 0.3 mg/dL (0.15-1.2); Total Protein 6.9 g/dL (6.6-8.7)
[2019-11-07 17:09] LABS: Acetaminophen < 5.0 ug/mL (10-30); Alcohol Level < 10 mg/dL (0-10); Salicylate < 0.3 mg/dL (3-10)
[2019-11-07 19:56] LABS: Lithium 0.1 mmol/L (0.6-1.2)
[2019-11-07 20:19] VITALS: BP 142/57; PULSE 75; RESP 18; O2SAT 98
[2019-11-07 20:37] VITALS: BP 109/77; PULSE 90; RESP 18; TEMP 36.6; O2SAT 95
--- NOTE | 2019-11-07 21:55 | PC.NURSE ---
MED RECONCILIATION PER DR. MILLER START LEVOTHYROXINE ONLY. OTHER MEDICATIONS NEEDS TO VERIFIED WITH [facility] TOMORROW WHEN THEY ARE OPEN.
[2019-11-07 22:00] VITALS: BP 109/77; PULSE 90; RESP 18; TEMP 36.6; O2SAT 95
[2019-11-07] MEDS: hyDROXYzine 25 mg Capsule 50 MG PO (22:16)
[2019-11-07] MEDS: potassium chloride ER 10 mEq Tablet PO (22:16)
[2019-11-08] MEDS: acetaminophen 325 mg Tablet 650 MG PO (01:42)
[2019-11-08 06:00] VITALS: BP 129/84; PULSE 101; RESP 18; TEMP 36.7; O2SAT 98
[2019-11-08 07:16] LABS: Anion Gap 13.3 (5-19); Blood Urea Nitrogen 18 mg/dL (8-23); Calcium 9.6 mg/dL (8.5-10.5); Carbon Dioxide 30 mmol/L (22-29); Chloride 100 mmol/L (98-107); Glomerular Filtration Rate 72.7 mL/min (90-130); Glucose 104 mg/dL (65-115); Osmolality Calculated 292 mOsm/kg (285-295); Potassium 3.3 mmol/L (3.5-5.1); Sodium 140 mmol/L (136-145)
[2019-11-08] MEDS: levothyroxine 88 mcg Tablet PO (08:34)
--- NOTE | 2019-11-08 09:08 | P.HP_ITS ---
Providers/Chief Complaint Admitting Physician: Mo Mauro MD Primary Care Provider: Carmen Mauro MD Chief Complaint: MHE HPI NPU History of Present Illness Anette Velasquez is a 64 year old female who presented to the emergency department with the following report: Pt presents to ER stating she is having auditory and visual hallucinations. Pt states she thinks the FBI is sending her coded messages and that her family is in danger. Pt states she stopped taking her behavioral meds back in August due to sisde effects. Pt denies SI or HI. Pt states she has had to have admission for this behavior in the past. Pt denies and other complaints. PT afebrile denies urinary symptoms denies chest pain SOB denies abd pain History of same: Yes Relieving factors: none Exacerbating factors: none Associated psychiatric symptoms: auditory hallucinations, visual hallucinations and delusions Associated symptoms: Reports auditory hallucinations, visual hallucinations and delusions; Deny depression, homicidal ideation, suicidal ideation or racing thoughts Treatments prior to arrival: none. Anette presented to the neuropsychiatric unit for definitive treatment of those issues. She reports that she has struggled with depression and anxiety and post-traumatic stress disorder for some time. She reports that her first hospitalization was back in 2012. She was also hospitalized in 2017 and 2018. She reports that she moved back to this area from [place], where she was living with her son and daughter in law. She reports that, when she came back, she started having problems with her anxiety being worse. She had not gotten connected with providers and that was problematic. She reports that recently her treatment team has been trying to put her on antipsychotics to help with her delusional thinking; they tried Thorazine and she did not like how it made her feel. She has also had issues with gaining weight on medications. But she reports she has delusions like she feels like she is seeing messages in cars and colors. She believes a terrorist is watching her all the time, and reports that no matter where she goes she feels that way. She has been on Abilify, Geodon, Zyprexa, Thorazine, and she is not sure if she has had Haldol. She has never had Invega. She reports that recently she had weight gain with the medication, and she stopped taking the medication around July or August. She reports that she moved out to [place] to stay with her sister and the problems increased. She reports that she has also taken Effexor, in the past, which helped with her depression. We discussed the risks, benefits, and alternatives of her having a trial of Invega, and she understood and agreed to proceed as is documented in this note. PSYCHIATRIC HISTORY: As above. She has been hospitalized five times and follows up with [facility]. SUBSTANCE ABUSE HISTORY: She denies cigarette, alcohol, or marijuana use. She denies any other illicit drug use. She has never been to a drug rehabilitation or had a DUI. FAMILY HISTORY: She endorses mental health and addiction issues on both sides of the family. She endorses that her sister has had a suicide attempt but there have been no suicide completions in the family. DEVELOPMENTAL HISTORY: She reports that she was premature, maybe about a month, and breech. She learned how to walk and talk and met developmental milestones on time. She reports that she did not have speech therapy, emotional support, or special education classes. But she did report having some learning assistance in math. PSYCHOSOCIAL HISTORY: She reports that her parents were together when she was born and they stayed together until she was about 12 years old. She reports that there were six children that they had together, and she was the baby of those six. She denies either of her parents having children with anyone else. She reports that her childhood was chaotic; there was a lot of alcohol use, which made thing untenable, at times. She denies emotional, physical, or sexual abuse. She reports that the highest grade she reached was the twelfth grade, and she did not get her GED. She reports that her longest relationship was thirty years. She has been two times and twice. She has had three children, three boys ages 46 to 47, 39, and 30. Her oldest son she gave up for adoption and has not seen since . She has never been in the . She reports that she is Y[employer]anism. 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 She lives in a house with a friend named Greyson. LEGAL HISTORY: She has never been to intermediate or ever had significant legal peril. 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 Meds NPU Home Medications Medication Instructions Recorded Confirmed Last Taken Type ropinirole 0.5 mg tablet 0.5 mg PO TID 90 Days #270 tab 06/19/19 11/07/19 11/07/19 Rx Cock up splint #1 ea 07/24/19 11/07/19 Unknown Rx venlafaxine 150 mg 150 mg PO QAM #90 cap 08/01/19 11/07/19 11/07/19 Rx capsule,extended release 24 hr hydrochlorothiazide 25 mg tablet 25 mg PO DAILY 90 Days #90 tab 08/12/1911/0611/07/19 Rx levothyroxine 88 mcg tablet 88 mcg PO DAILY 30 Days #30 tab 09/08/19 11/07/19 11/07/19 Rx Allergies Allergy/AdvReac Type Severity Reaction Status Date / Time poison leslie extract Allergy Unknown rash Verified 11/07/19 18:17 haloperidol [From Haldol] AdvReac Unknown Unknown Verified 11/07/19 18:17 PFSH NPU PFSH: Medical History Delusional disorders Depression, major, recurrent, 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, implants and grafts, initial encounter Frontal lobe dementia Generalized anxiety disorder with panic attacks 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 No abnormal movements. Cooperative with exam in no acute distress. Speech was normal rate and volume. Mood described as struggling; affect congruent. Thought process, organized. Thought content: patient denied any suicidal or homicidal ideation; she did endorse paranoid delusions but none were noted; she endorsed occasional auditory hallucination, but does have visual hallucinations thinking she is seeing the people watching her. Attention, concentration, and memory appear intact but none were formally tested. She is alert and oriented times three. Insight and judgment are good. Vitals/I&O/Wt Last Vital Signs Temp 98.7 F 11/08/19 20:53 Pulse 119 H 11/08/19 20:53 Resp 18 11/08/19 20:53 BP 111/69 11/08/19 20:53 Pulse Ox 97 11/08/19 20:53 Weight last 48 hrs Weight 90.718 kg Weight 90.718 kg Data NPU : 11/07/19 16:14 11/08/19 06:43 Micro: Microbiology 11/07/19 15:34 Urine Culture - Preliminary Urine,Clean Catch Microbiology 11/07/19 15:34 Urine,Clean Catch Urine Culture - Preliminary A&P Assessment and plan (1) Generalized anxiety disorder with panic attacks: Status: Chronic (2) Depression, major, recurrent, severe with psychosis: Status: Chronic (3) Delusional disorders: Status: Chronic (4) Panic disorder: Status: Chronic (5) Psychosis: Status: Acute Additional A&P Information This is a 64 year old, white female, with a long history of depression, anxiety, post-traumatic stress disorder, and psychosis, who presents off of medication because she could not tolerate the Thorazine, and presents open to a medication trial. Continue current medication, except: Start Invega 6 mg po q daily. Encourage individual, group, and milieu therapy. Continue q-15 minute checks for safety. Involuntary Hold Information 96 Hour Hold: 96 Hour Involuntary Admission: No Attestations NPU Medical Necessity Statement*: Inpatient hospitalization is medically necessary and the clinically appropriate intervention, at this time. We will monitor medications and make changes as indicated. Patient will be in the hospital for over two midnights. Likely length of stay is two to four days. Coding Level of Care Code Acute Metal Drawer for g Fwd Diagnoses Generalized anxiety disorder with panic attacks F41.1; F41.0 Depression, major, recurrent, severe with psychosis F33.3 Delusional disorders F22 Panic disorder F41.0 Psychosis F29
[2019-11-08] MEDS: paliperidone ER 6 mg Tablet PO (10:55)
[2019-11-08 14:00] VITALS: BP 126/87; PULSE 89; RESP 17; TEMP 36.8
[2019-11-08] MEDS: ropinirole 1 mg Tablet 0.5 MG PO ×2 (14:22→21:09)
[2019-11-08 20:53] VITALS: BP 111/69; PULSE 119; RESP 18; TEMP 37.1; O2SAT 97
[2019-11-09 06:00] VITALS: BP 111/58; PULSE 81; RESP 16; TEMP 36.8; O2SAT 95
[2019-11-09] MEDS: potassium chloride ER 10 mEq Tablet PO (08:51)
[2019-11-09] MEDS: paliperidone ER 6 mg Tablet PO (08:51)
[2019-11-09] MEDS: levothyroxine 88 mcg Tablet PO (08:51)
[2019-11-09] MEDS: ropinirole 1 mg Tablet 0.5 MG PO (08:51)
--- NOTE | 2019-11-09 11:09 | P.PN_ITS ---
Subjective NPU Subjective: Interval history: Nemo presents today reporting that she is a little dizzy. We were checking her vitals and she noted her blood pressure was high she reports that she is on hydrochlorothiazide but we had able to find events in the system so she is called her to give us some verification. She reports that the medication is working wonderfully and that she is doing fine sleeping really well also. We discussed the risk benefits and alternatives of her discharging tomorrow if she continues to do well and she understood and agreed to proceed as documented in this note. Vitals/I&O/Wt Last Vital Signs Temp 98.3 F 11/09/19 06:00 Pulse 81 11/09/19 06:00 Resp 16 11/09/19 06:00 BP 111/58 11/09/19 06:00 Pulse Ox 95 11/09/19 06:00 Weight last 48 hrs Weight 90.718 kg Weight 90.718 kg Data NPU : 11/07/19 16:14 11/08/19 06:43 Micro: Microbiology 11/07/19 15:34 Urine Culture - Final Urine,Clean Catch Microbiology 11/07/19 15:34 Urine,Clean Catch Urine Culture - Final Involuntary Hold Information 96 Hour Hold: 96 Hour Involuntary Admission: No Attestations NPU Medical Necessity Statement*: Inpatient hospitalization is medically therape utically cooperative time. We will monitor medication to make changes as indicated. Likely length of stay 1 to 3 days. 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
--- NOTE | 2019-11-09 12:43 | PM.NDC ---
Diagnoses at Discharge Discharge Diagnosis (1) Generalized anxiety disorder with panic attacks: Status: Chronic (2) Depression, major, recurrent, severe with psychosis: Status: Chronic (3) Delusional disorders: Status: Chronic (4) Panic disorder: Status: Chronic (5) Psychosis: Status: Acute Reason for Visit Reason for Visit: MHE Brief History: History of Present Illness Anette Velasquez is a 64 year old female who presented to the emergency department with the following report: Pt presents to ER stating she is having auditory and visual hallucinations. Pt states she thinks the FBI is sending her coded messages and that her family is in danger. Pt states she stopped taking her behavioral meds back in August due to sisde effects. Pt denies SI or HI. Pt states she has had to have admission for this behavior in the past. Pt denies and other complaints. PT afebrile denies urinary symptoms denies chest pain SOB denies abd pain History of same: Yes Relieving factors: none Exacerbating factors: none Associated psychiatric symptoms: auditory hallucinations, visual hallucinations and delusions Associated symptoms: Reports auditory hallucinations, visual hallucinations and delusions; Deny depression, homicidal ideation, suicidal ideation or racing thoughts Treatments prior to arrival: none. Anette presented to the neuropsychiatric unit for definitive treatment of those issues. She reports that she has struggled with depression and anxiety and post-traumatic stress disorder for some time. She reports that her first hospitalization was back in 2012. She was also hospitalized in 2017 and 2018. She reports that she moved back to this area from [place], where she was living with her son and daughter in law. She reports that, when she came back, she started having problems with her anxiety being worse. She had not gotten connected with providers and that was problematic. She reports that recently her treatment team has been trying to put her on antipsychotics to help with her delusional thinking; they tried Thorazine and she did not like how it made her feel. She has also had issues with gaining weight on medications. But she reports she has delusions like she feels like she is seeing messages in cars and colors. She believes a terrorist is watching her all the time, and reports that no matter where she goes she feels that way. She has been on Abilify, Geodon, Zyprexa, Thorazine, and she is not sure if she has had Haldol. She has never had Invega. She reports that recently she had weight gain with the medication, and she stopped taking the medication around July or August. She reports that she moved out to [place] to stay with her sister and the problems increased. She reports that she has also taken Effexor, in the past, which helped with her depression. We discussed the risks, benefits, and alternatives of her having a trial of Invega, and she understood and agreed to proceed as is documented in this note. PSYCHIATRIC HISTORY: As above. She has been hospitalized five times and follows up with [facility]. SUBSTANCE ABUSE HISTORY: She denies cigarette, alcohol, or marijuana use. She denies any other illicit drug use. She has never been to a drug rehabilitation or had a DUI. FAMILY HISTORY: She endorses mental health and addiction issues on both sides of the family. She endorses that her sister has had a suicide attempt but there have been no suicide completions in the family. DEVELOPMENTAL HISTORY: She reports that she was premature, maybe about a month, and breech. She learned how to walk and talk and met developmental milestones on time. She reports that she did not have speech therapy, emotional support, or special education classes. But she did report having some learning assistance in math. PSYCHOSOCIAL HISTORY: She reports that her parents were together when she was born and they stayed together until she was about 12 years old. She reports that there were six children that they had together, and she was the baby of those six. She denies either of her parents having children with anyone else. She reports that her childhood was chaotic; there was a lot of alcohol use, which made thing untenable, at times. She denies emotional, physical, or sexual abuse. She reports that the highest grade she reached was the twelfth grade, and she did not get her GED. She reports that her longest relationship was thirty years. She has been two times and twice. She has had three children, three boys ages 46 to 47, 39, and 30. Her oldest son she gave up for adoption and has not seen since . She has never been in the . She reports that she is L[employer] Day. 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 She lives in a house with a friend named Greyson. LEGAL HISTORY: She has never been to long-term or ever had significant legal peril. 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 Hospital Course Hospital Course Anette presented to the emergency room endorsing significant psychosis. She was admitted to the neuropsychiatric unit for definitive treatment of this issue. During the hospitalization she slowly acclimated to the individual, group and milieu therapies provided. She is open to initiation of Invega and reported feeling really well with the diminishing of her psychosis after her second dose. She was not on a 96-hour hold and did not have any clear issues that would demand being placed on a hold. She was evaluated and was absent credible lethality and not desiring to stay so she was allowed to leave. She did have some improvement. During the hospitalization she had routine laboratory studies which were within normal limits except for a few outliers. Additionally she had a general medical evaluation which was also within normal limits and revealed no new acute processes. Discharge Summary At the time of discharge she was absent lethality and her psychosis was improving. Her mood and anxiety were well managed. She endorsed a plan to follow-up with outpatient resources as recommended by the treatment team. She was evaluated and deemed to lack credible lethality and was not on a 96-hour hold so she was discharged per her request. Involuntary Hold Information 96 Hour Hold: 96 Hour Involuntary Admission: No Mental Status Exam MSE Comments: This is an obese, white female, with adequate dress, grooming, and eye contact. No abnormal movements. Cooperative with exam in no acute distress. Speech was normal rate and volume. Mood described as better; affect congruent. Thought process, organized. Thought content: patient denied any suicidal or homicidal ideation; she did endorse improvement in her paranoid delusions but none were noted; she endorsed occasional auditory hallucination, but does have visual hallucinations that she reports are improving. Attention, concentration, and memory appear intact but none were formally tested. She is alert and oriented times three. Insight and judgment are good. Discharge Data Data Completed and Pending: Completed Studies During Hospitalization Category Date Time Status XR chest 1V emma ble [id number] Urgent Exams 11/07/19 16:14 Completed Vitals: Last Vital Signs Temp 98.3 F 11/09/19 06:00 Pulse 81 11/09/19 06:00 Resp 16 11/09/19 06:00 BP 111/58 11/09/19 06:00 Pulse Ox 95 11/09/19 06:00 Discharge Plan Discharge Patient Disposition: Home Condition: Stable Prescriptions: Continued ropinirole 0.5 mg tablet 0.5 mg PO TID 90 Days Qty: 270 RF: 1 hydrochlorothiazide 25 mg tablet 25 mg PO DAILY 90 Days Qty: 90 RF: 1 (DME) Cock up splint See Rx Instructions .Route .MEDSUPPLY Qty: 1 RF: 0 levothyroxine 88 mcg tablet 88 mcg PO DAILY 30 Days Qty: 30 RF: 5 No Action venlafaxine 150 mg capsule,extended release 24hr 150 mg PO QAM Qty: 90 RF: 2 Discharge Orders: Discharge Order (Routine); Ordered 11/09/19 Ordered By: Mo Mauro Discharge Diet: Regular Discharge Activity: Resume usual activity Patient Instructions: Paliperidone (By mouth) Discharge Date/Time: 11/09/19 13:37 Discharge Attestations NPU Time Spent in Discharge Care*: less than 30 min Specific Discharge Activities: Specific discharge activities: educating patient, discussing with high risk case manager/social workers/dc planners, documenting/other paperwork and evaluating patient/reviewing data Coding Level of Care Code Acute Research Center Director for g Fwd Diagnoses Generalized anxiety disorder with panic attacks F41.1; F41.0 Depression, major, recurrent, severe with psychosis F33.3 Delusional disorders F22 Panic disorder F41.0 Psychosis F29
[2019-11-09 13:01] VITALS: BP 111/58; PULSE 81; RESP 16; TEMP 36.8; O2SAT 95
[2019-11-09 13:13] VITALS: BP 168/84; PULSE 98; RESP 18; TEMP 36.6; O2SAT 98
== END 2019-11-09 13:37 | disposition home or self-care (01) | DRG 885 ==
LOC: ER 17:12 → NP 19:48
PROVIDERS: Family Medicine; Registered Nurse; Admitting Provider Psychiatry & Neurology Psychiatry; PCP Family Medicine; Visit Provider Psychiatry & Neurology Psychiatry
DX: F23 Brief psychotic disorder (principal); F41.1 Generalized anxiety disorder; F33.3 Major depressive disorder, recurrent, severe with psychotic symptoms; F43.10 Post-traumatic stress disorder, unspecified; E03.9 Hypothyroidism, unspecified; G25.81 Restless legs syndrome; F41.0 Panic disorder [episodic paroxysmal anxiety]
CPT/HCPCS: 12345; 36415; 71045; 80048; 80053; 80178; 80306; 80307; 81001; 84443; 85025; 87086; 93005; 99283

== ENCOUNTER → 2019-11-13 07:38 | Outpatient (BNVA) | payer MEDICAID, SELFPAY | PROVIDERS: PCP Family Medicine; Visit Provider Nurse Practitioner Psychiatric/Mental Health | DX: F33.3 Major depressive disorder, recurrent, severe with psychotic symptoms (principal); F43.12 Post-traumatic stress disorder, chronic; F41.1 Generalized anxiety disorder; F41.0 Panic disorder [episodic paroxysmal anxiety]; F22 Delusional disorders | CPT/HCPCS: 99214 ==

== ENCOUNTER → 2019-11-19 08:44 | Outpatient (BNVA) | payer MEDICAID, SELFPAY | PROVIDERS: PCP Family Medicine; Visit Provider Counselor Professional | DX: F22 Delusional disorders (principal); F33.3 Major depressive disorder, recurrent, severe with psychotic symptoms; F41.1 Generalized anxiety disorder; F41.0 Panic disorder [episodic paroxysmal anxiety] | CPT/HCPCS: 90834 ==

== ENCOUNTER → 2019-11-26 08:51 | Outpatient (BNVA) | payer MEDICAID, SELFPAY | PROVIDERS: PCP Family Medicine; Visit Provider Counselor Professional | DX: F22 Delusional disorders (principal); F33.3 Major depressive disorder, recurrent, severe with psychotic symptoms; F41.1 Generalized anxiety disorder; F41.0 Panic disorder [episodic paroxysmal anxiety] | CPT/HCPCS: 90834 ==

== ENCOUNTER → 2019-12-04 08:21 | Outpatient (BNVA) | payer MEDICAID, SELFPAY | PROVIDERS: PCP Family Medicine; Visit Provider Counselor Professional | DX: F22 Delusional disorders (principal); F33.3 Major depressive disorder, recurrent, severe with psychotic symptoms; F41.1 Generalized anxiety disorder; F41.0 Panic disorder [episodic paroxysmal anxiety] | CPT/HCPCS: 90834 ==

== ENCOUNTER → 2019-12-11 08:24 | Outpatient (BNVA) | payer MEDICAID, SELFPAY | PROVIDERS: Visit Provider Counselor Professional | DX: F22 Delusional disorders (principal); F33.3 Major depressive disorder, recurrent, severe with psychotic symptoms; F41.1 Generalized anxiety disorder | CPT/HCPCS: 90834 ==

== ENCOUNTER → 2019-12-18 08:25 | Outpatient (BNVA) | payer MEDICAID, SELFPAY | PROVIDERS: Visit Provider Counselor Professional | DX: F22 Delusional disorders (principal); F33.3 Major depressive disorder, recurrent, severe with psychotic symptoms; F41.1 Generalized anxiety disorder; F41.0 Panic disorder [episodic paroxysmal anxiety] | CPT/HCPCS: 90834 ==

== ENCOUNTER → 2020-01-01 07:37 | Outpatient (BNVA) | payer MEDICAID, SELFPAY | PROVIDERS: Visit Provider Counselor Professional | DX: F22 Delusional disorders (principal); F33.3 Major depressive disorder, recurrent, severe with psychotic symptoms; F41.1 Generalized anxiety disorder; F41.0 Panic disorder [episodic paroxysmal anxiety] | CPT/HCPCS: 90834 ==

== ENCOUNTER → 2020-01-02 07:22 | Outpatient (BNVA) | payer MEDICAID, SELFPAY | PROVIDERS: Visit Provider Nurse Practitioner Psychiatric/Mental Health | DX: F33.3 Major depressive disorder, recurrent, severe with psychotic symptoms (principal); F43.12 Post-traumatic stress disorder, chronic; F41.1 Generalized anxiety disorder; F41.0 Panic disorder [episodic paroxysmal anxiety]; F22 Delusional disorders | CPT/HCPCS: 99214 ==

== ENCOUNTER → 2020-01-16 07:28 | Outpatient (BNVA) | payer MEDICAID, SELFPAY | PROVIDERS: Visit Provider Nurse Practitioner Psychiatric/Mental Health | DX: F33.3 Major depressive disorder, recurrent, severe with psychotic symptoms (principal); F43.12 Post-traumatic stress disorder, chronic; F41.1 Generalized anxiety disorder; F41.0 Panic disorder [episodic paroxysmal anxiety]; F22 Delusional disorders; Z79.899 Other long term (current) drug therapy | CPT/HCPCS: 99213 ==

== ENCOUNTER → 2020-01-29 08:05 | Outpatient (BNVA) | payer MEDICAID, SELFPAY | PROVIDERS: Visit Provider Counselor Professional | DX: F22 Delusional disorders (principal); F33.3 Major depressive disorder, recurrent, severe with psychotic symptoms; F41.1 Generalized anxiety disorder; F41.0 Panic disorder [episodic paroxysmal anxiety] | CPT/HCPCS: 90834 ==

== ENCOUNTER → 2020-01-30 07:54 | Outpatient (BNVA) | payer MEDICAID, SELFPAY | PROVIDERS: Visit Provider Nurse Practitioner Psychiatric/Mental Health | DX: F43.12 Post-traumatic stress disorder, chronic (principal); F33.3 Major depressive disorder, recurrent, severe with psychotic symptoms; F22 Delusional disorders; F41.1 Generalized anxiety disorder; F41.0 Panic disorder [episodic paroxysmal anxiety] | CPT/HCPCS: 99213 ==

== ENCOUNTER → 2020-02-17 07:32 | Outpatient (BNVA) | payer MEDICARE, MEDICAID, SELFPAY | PROVIDERS: Visit Provider Nurse Practitioner Psychiatric/Mental Health | DX: F33.3 Major depressive disorder, recurrent, severe with psychotic symptoms (principal); F43.12 Post-traumatic stress disorder, chronic; F22 Delusional disorders; F41.1 Generalized anxiety disorder; F41.0 Panic disorder [episodic paroxysmal anxiety] | CPT/HCPCS: 99214 ==

== ENCOUNTER → 2020-02-20 10:09 | Outpatient (BNVA) | payer MEDICARE, MEDICAID, SELFPAY | PROVIDERS: Visit Provider Nurse Practitioner Psychiatric/Mental Health | DX: Z79.899 Other long term (current) drug therapy (principal) | CPT/HCPCS: 80053; 80061; 83036 ==

== ENCOUNTER → 2020-02-27 09:44 | Outpatient (BNVA) | payer MEDICARE, MEDICAID, SELFPAY | PROVIDERS: Visit Provider Counselor Professional | DX: F22 Delusional disorders (principal); F33.3 Major depressive disorder, recurrent, severe with psychotic symptoms; F43.12 Post-traumatic stress disorder, chronic; F41.1 Generalized anxiety disorder; F41.0 Panic disorder [episodic paroxysmal anxiety] | CPT/HCPCS: 90834 ==

== ENCOUNTER 2020-03-02 10:28 | Outpatient (RCR) | payer MEDICARE, MEDICAID, SELFPAY | END 2020-03-14 23:59 | disposition home or self-care (01) | LOC: SPT 10:28 | PROVIDERS: PCP Family Medicine; Referring Provider Family Medicine; Visit Provider Family Medicine | DX: M54.5 Low back pain (principal) | CPT/HCPCS: 81000; 97110; 97161 ==

== ENCOUNTER → 2020-03-11 08:40 | Outpatient (BNVA) | payer MEDICARE, MEDICAID, SELFPAY | PROVIDERS: Visit Provider Counselor Professional | DX: F22 Delusional disorders (principal); F33.3 Major depressive disorder, recurrent, severe with psychotic symptoms; F43.12 Post-traumatic stress disorder, chronic; F41.1 Generalized anxiety disorder; F41.0 Panic disorder [episodic paroxysmal anxiety] | CPT/HCPCS: 90834 ==

== ENCOUNTER 2020-03-15 06:00 | Outpatient (RCR) | payer MEDICARE, MEDICAID, SELFPAY | END 2020-04-11 23:59 | disposition home or self-care (01) | LOC: SPT 06:00 | PROVIDERS: PCP Family Medicine; Referring Provider Family Medicine; Visit Provider Family Medicine | DX: M54.5 Low back pain (principal) | CPT/HCPCS: 87635 ==

== ENCOUNTER → 2020-03-19 07:29 | Outpatient (BNVA) | payer MEDICARE, MEDICAID, SELFPAY | PROVIDERS: PCP Family Medicine; Visit Provider Nurse Practitioner Psychiatric/Mental Health | DX: F22 Delusional disorders (principal); F33.3 Major depressive disorder, recurrent, severe with psychotic symptoms; F43.12 Post-traumatic stress disorder, chronic; F41.1 Generalized anxiety disorder; F41.0 Panic disorder [episodic paroxysmal anxiety] | CPT/HCPCS: 99214 ==

== ENCOUNTER → 2020-04-15 08:49 | Outpatient (BNVA) | payer MEDICARE, MEDICAID, SELFPAY | PROVIDERS: PCP Family Medicine; Visit Provider Nurse Practitioner Psychiatric/Mental Health | DX: F33.3 Major depressive disorder, recurrent, severe with psychotic symptoms (principal); F43.12 Post-traumatic stress disorder, chronic; F41.1 Generalized anxiety disorder; F41.0 Panic disorder [episodic paroxysmal anxiety]; F22 Delusional disorders | CPT/HCPCS: 99214 ==

== ENCOUNTER → 2020-05-20 09:15 | Outpatient (BNVA) | payer MEDICARE, MEDICAID, SELFPAY ==
[2020-04-26 14:25] VITALS: BP 120/84; BMI 35.5
== END ==
PROVIDERS: PCP Family Medicine; Visit Provider Internal Medicine
DX: E03.8 Other specified hypothyroidism (principal); E04.1 Nontoxic single thyroid nodule; E06.3 Autoimmune thyroiditis; E66.9 Obesity, unspecified; E78.5 Hyperlipidemia, unspecified
CPT/HCPCS: 36415; 80061; 84439; 84443; 99204

== ENCOUNTER 2020-05-20 10:37 | Outpatient (CLI) | payer MEDICARE, MEDICAID, SELFPAY ==
[2020-04-26 14:25] VITALS: BP 120/84; BMI 35.5
[2020-05-20 12:02] LABS: Chol HDL Ratio 3.58 mg/dL (0.0-4.40); Cholesterol 197 mg/dL (0-200); Free T4 Free Thyroxine 1.11 ng/dL (0.82-1.77); HDL Cholesterol 55 mg/dL (60-100); LDL Cholesterol Calculated 122 mg/dL (50-129); LDL HDL Ratio 2.22 RATIO (0.00-3.22); Thyroid Stimulating Hormone 1.43 uIU/mL (0.27-4.20); Triglycerides 99 mg/dL (0-150)
== END 2020-05-20 10:38 | disposition home or self-care (01) ==
LOC: LAB 10:40
PROVIDERS: PCP Family Medicine; Visit Provider Internal Medicine
DX: E03.8 Other specified hypothyroidism (principal); E06.3 Autoimmune thyroiditis; E78.5 Hyperlipidemia, unspecified
CPT/HCPCS: 36415; 80061; 84439; 84443

== ENCOUNTER → 2020-05-27 09:17 | Outpatient (BNVA) | payer MEDICARE, MEDICAID, SELFPAY ==
[2020-04-26 14:25] VITALS: BP 120/84; BMI 35.5
== END ==
PROVIDERS: PCP Family Medicine; Visit Provider Nurse Practitioner Psychiatric/Mental Health
DX: F22 Delusional disorders (principal); F33.3 Major depressive disorder, recurrent, severe with psychotic symptoms; F43.12 Post-traumatic stress disorder, chronic; F41.1 Generalized anxiety disorder; F41.0 Panic disorder [episodic paroxysmal anxiety]
CPT/HCPCS: 99214

== ENCOUNTER → 2020-06-15 11:12 | Outpatient (BNVA) | payer MEDICARE, MEDICAID, SELFPAY ==
[2020-04-26 14:25] VITALS: BP 120/84; BMI 35.5
== END ==
PROVIDERS: PCP Family Medicine; Visit Provider Family Medicine
DX: I10 Essential (primary) hypertension (principal); R60.0 Localized edema; E06.3 Autoimmune thyroiditis; G25.81 Restless legs syndrome; E87.6 Hypokalemia; K04.7 Periapical abscess without sinus
CPT/HCPCS: 80048

== ENCOUNTER 2020-06-17 09:07 | Outpatient (CLI) | payer MEDICARE, MEDICAID, SELFPAY ==
[2020-04-26 14:25] VITALS: BP 120/84; BMI 35.5
--- NOTE | 2020-06-17 09:30 | US_ITS ---
WS: [id number] ULTRASOUND THYROID TECHNIQUE: Ultrasound of the thyroid. CLINICAL INFORMATION: goiter, thyroid nodules COMPARISON: None. FINDINGS: Thyroid: Diffuse heterogeneous thyroid echotexture. Tiny incidental cyst right thyroid. Calcified lef t thyroid nodule measuring 9.5 x 6.6 x 8.1 mm in the mid and lower pole. Right thyroid lobe: 4.3 cm x 0.9 cm x 1.6 cm Left thyroid lobe: 3.8 cm x 1.1 cm x 1.1 cm. Isthmus: 0.4 mm. Cervical lymphadenopathy: None. US/US thyroid [id number] IMPRESSION: 1. Diffuse heterogeneous thyroid echotexture bilaterally. Correlation with thy roid function studies. 2. Calcified nodule left mid and lower pole measuring 9.5 x 6.6 x 8.1 mm. Robert mmend 12 month follow-up. 3. Tiny incidental cyst right thyroid.
== END 2020-06-17 09:08 | disposition home or self-care (01) ==
LOC: RAD 09:11
PROVIDERS: PCP Family Medicine; Visit Provider Internal Medicine
DX: E04.1 Nontoxic single thyroid nodule (principal)
CPT/HCPCS: 76536

== ENCOUNTER → 2020-07-08 08:14 | Outpatient (BNVA) | payer MEDICARE, MEDICAID, SELFPAY ==
[2020-04-26 14:25] VITALS: BP 120/84; BMI 35.5
== END ==
PROVIDERS: PCP Family Medicine; Visit Provider Nurse Practitioner Psychiatric/Mental Health
DX: F22 Delusional disorders (principal); F33.3 Major depressive disorder, recurrent, severe with psychotic symptoms; F43.12 Post-traumatic stress disorder, chronic; F41.1 Generalized anxiety disorder; F41.0 Panic disorder [episodic paroxysmal anxiety]
CPT/HCPCS: 99214

== ENCOUNTER 2020-08-10 11:06 | Outpatient (CLI) | payer MEDICARE, MEDICAID, SELFPAY ==
[2020-04-26 14:25] VITALS: BP 120/84; BMI 35.5
--- NOTE | 2020-08-10 11:30 | MM_ITS ---
WS: [id number] BILATERAL DIGITAL SCREENING MAMMOGRAPHY WITH CAD CLINICAL INFORMATION: Z12.39 - Encounter for other screening for malignant neoplasm of breast HISTORY: Screening mammogram. No current complaints. COMPARISON: TECHNIQUE: Bilateral CC and MLO views. FINDINGS: Scattered fibroglandular densities bilaterally. Lucent centered calcifications both breasts. No suspi cious focal mass, asymmetry, calcifications, or architectural distortion. No evidence of malignancy. MM/[place] [id number] IMPRESSION: BI-RADS: 2-Benign FOLLOW UP: 1 Year Follow-up Recommend return to annual screening mammography.
== END 2020-08-10 11:07 | disposition home or self-care (01) ==
LOC: RADSHAW 11:10
PROVIDERS: PCP Family Medicine; Visit Provider Family Medicine
DX: Z12.31 Encounter for screening mammogram for malignant neoplasm of breast (principal)
CPT/HCPCS: 77067

== ENCOUNTER → 2020-08-18 12:43 | Outpatient (BNVA) | payer MEDICARE, MEDICAID, SELFPAY ==
[2020-04-26 14:25] VITALS: BP 120/84; BMI 35.5
== END ==
PROVIDERS: PCP Family Medicine; Visit Provider Nurse Practitioner Psychiatric/Mental Health
DX: F22 Delusional disorders (principal); F33.3 Major depressive disorder, recurrent, severe with psychotic symptoms; F43.12 Post-traumatic stress disorder, chronic; F41.1 Generalized anxiety disorder; F41.0 Panic disorder [episodic paroxysmal anxiety]
CPT/HCPCS: 99214

== ENCOUNTER → 2020-09-14 13:59 | Outpatient (BNVA) | payer MEDICARE, MEDICAID, SELFPAY ==
[2020-04-26 14:25] VITALS: BP 120/84; BMI 35.5
== END ==
PROVIDERS: PCP Family Medicine; Visit Provider Family Medicine
DX: D22.4 Melanocytic nevi of scalp and neck (principal)
CPT/HCPCS: 88304

== ENCOUNTER → 2020-09-15 12:57 | Outpatient (BNVA) | payer MEDICARE, MEDICAID, SELFPAY ==
[2020-04-26 14:25] VITALS: BP 120/84; BMI 35.5
== END ==
PROVIDERS: PCP Family Medicine; Visit Provider Specialist
DX: F43.12 Post-traumatic stress disorder, chronic (principal); F22 Delusional disorders
CPT/HCPCS: 99212

== ENCOUNTER → 2020-09-21 12:00 | Outpatient (BNVA) | payer MEDICARE, MEDICAID, SELFPAY ==
[2020-04-26 14:25] VITALS: BP 120/84; BMI 35.5
== END ==
PROVIDERS: PCP Family Medicine; Visit Provider Family Medicine
DX: N39.0 Urinary tract infection, site not specified (principal); C44.41 Basal cell carcinoma of skin of scalp and neck
CPT/HCPCS: 81000; 87086

== ENCOUNTER → 2020-09-22 10:18 | Outpatient (BNVA) | payer MEDICARE, MEDICAID, SELFPAY ==
[2020-04-26 14:25] VITALS: BP 120/84; BMI 35.5
== END ==
PROVIDERS: PCP Family Medicine; Visit Provider Nurse Practitioner Psychiatric/Mental Health
DX: F22 Delusional disorders (principal); F33.3 Major depressive disorder, recurrent, severe with psychotic symptoms; F43.12 Post-traumatic stress disorder, chronic; F41.1 Generalized anxiety disorder; F41.0 Panic disorder [episodic paroxysmal anxiety]
CPT/HCPCS: 99214

== ENCOUNTER → 2020-10-21 10:48 | Outpatient (BNVA) | payer MEDICARE, MEDICAID, SELFPAY ==
[2020-04-26 14:25] VITALS: BP 120/84; BMI 35.5
== END ==
PROVIDERS: PCP Family Medicine; Visit Provider Counselor Professional
DX: F41.1 Generalized anxiety disorder (principal); F41.0 Panic disorder [episodic paroxysmal anxiety]; F33.3 Major depressive disorder, recurrent, severe with psychotic symptoms; F22 Delusional disorders
CPT/HCPCS: 90834

== ENCOUNTER 2020-10-21 12:01 | Outpatient (CLI) | payer MEDICARE, MEDICAID, SELFPAY ==
[2020-04-26 14:25] VITALS: BP 120/84; BMI 35.5
[2020-10-21 13:22] LABS: Thyroid Stimulating Hormone 2.64 uIU/mL (0.27-4.20)
[2020-10-21 13:47] LABS: Free T4 Free Thyroxine 1.24 ng/dL (0.82-1.77)
== END 2020-10-21 12:02 | disposition home or self-care (01) ==
LOC: LAB 12:10
PROVIDERS: PCP Family Medicine; Visit Provider Internal Medicine
DX: E03.8 Other specified hypothyroidism (principal); E04.1 Nontoxic single thyroid nodule; E06.3 Autoimmune thyroiditis; E78.5 Hyperlipidemia, unspecified
CPT/HCPCS: 84439; 84443

== ENCOUNTER → 2020-11-04 09:21 | Outpatient (BNVA) | payer MEDICARE, MEDICAID, SELFPAY ==
[2020-10-28 07:51] VITALS: BP 120/84; BMI 35.5
== END ==
PROVIDERS: PCP Family Medicine; Visit Provider Nurse Practitioner Psychiatric/Mental Health
DX: F22 Delusional disorders (principal); F33.3 Major depressive disorder, recurrent, severe with psychotic symptoms; F43.12 Post-traumatic stress disorder, chronic; F41.1 Generalized anxiety disorder; F41.0 Panic disorder [episodic paroxysmal anxiety]
CPT/HCPCS: 99214

== ENCOUNTER 2020-12-08 12:28 | Outpatient (CLI) | payer MEDICARE, MEDICAID, SELFPAY ==
[2020-04-26 14:25] VITALS: BP 120/84; BMI 35.5
[2020-10-28 07:51] VITALS: BP 120/84; BMI 35.5
--- NOTE | 2020-12-08 12:45 | US_ITS ---
WS: [id number] THYROID ULTRASOUND HISTORY: thyroid nodule COMPARISON: 06/17/2020 Right lobe: 1.4 cm x 1.7 cm x 4.1 cm (w x ap x l). Volume: 5.2 cm3. Heterogeneous thyroid gland. No dominant nodules. No increased vascularity. Small submandibular lymph node. Left lobe: 1.2 cm x 1.5 cm x 4.1 cm (w x ap x l). Volume: 3.9 cm3. Small heterogeneous gland. No increased vascularity. Densely calcified nodule in the mid thyroid charlotte ures 5 x 6 x 7 mm without increase in size since the prior study. Isthmus: 0.4 cm. US/US thyroid [id number] IMPRESSION: 1. Partially calcified mid LEFT thyroid nodule is unchanged in size or appeara nce. 2. No suspicious nodules or increasing size of thyroid nodule.
== END 2020-12-08 12:29 | disposition home or self-care (01) ==
LOC: RAD 12:31
PROVIDERS: PCP Family Medicine; Visit Provider Internal Medicine
DX: E04.1 Nontoxic single thyroid nodule (principal)
CPT/HCPCS: 76536

== ENCOUNTER → 2020-12-16 11:17 | Outpatient (BNVA) | payer MEDICARE, MEDICAID, SELFPAY ==
[2020-10-28 07:51] VITALS: BP 120/84; BMI 35.5
== END ==
PROVIDERS: PCP Family Medicine; Visit Provider Nurse Practitioner Psychiatric/Mental Health
DX: F43.12 Post-traumatic stress disorder, chronic (principal); F22 Delusional disorders; F33.3 Major depressive disorder, recurrent, severe with psychotic symptoms; F41.1 Generalized anxiety disorder; F41.0 Panic disorder [episodic paroxysmal anxiety]
CPT/HCPCS: 99214

== ENCOUNTER → 2021-01-25 16:25 | Outpatient (BNVA) | payer MEDICARE, MEDICAID, SELFPAY ==
[2020-10-28 07:51] VITALS: BP 120/84; BMI 35.5
== END ==
PROVIDERS: PCP Family Medicine; Visit Provider Emergency Medicine
DX: R52 Pain, unspecified (principal); J02.9 Acute pharyngitis, unspecified
CPT/HCPCS: 87071; 87400; 87635; 87880

== ENCOUNTER 2021-01-28 09:21 | Outpatient (CLI) | payer MEDICARE, MEDICAID, SELFPAY ==
[2020-10-28 07:51] VITALS: BP 120/84; BMI 35.5
--- NOTE | 2021-01-28 09:39 | FL_ITS ---
WS: [id number] Barium swallow and esophagram, upper GI series with air, 01/28/2021 Clinical Data: R13.10 - Dysphagia, unspecified Comparison: None. Fluoroscopy time: 1.4 minutes. Findings: The patient swallowed the thick and thin barium, and it flowed through the hypopharynx without hesita tion. No stricture, mass, polyp or erosion was seen. The barium into the esophagus and there was normal motility throughout. No hiatal hernia, reflux, str icture, polyp, mass, erosion or ulcer was noted. No reflux was present. The barium passed into the stomach which was well distended. No erosion, polyp, mass or deformity cou ld be seen. No gastric ulcer was present. There are right upper quadrant clips from a cholecystectomy . Barium then passed into the duodenal bulb which distended normally without ulceration. The proximal small bowel is normal. FL/FL upper GI w air* [id number] Impression: Normal esophagram and upper GI series.
== END 2021-01-28 09:22 | disposition home or self-care (01) ==
PROVIDERS: PCP Family Medicine; Visit Provider Surgery
DX: R13.10 Dysphagia, unspecified (principal)
CPT/HCPCS: 74246

== ENCOUNTER → 2021-02-08 08:08 | Outpatient (BNVA) | payer MEDICARE, MEDICAID, SELFPAY ==
[2020-10-28 07:51] VITALS: BP 120/84; BMI 35.5
== END ==
PROVIDERS: PCP Family Medicine; Visit Provider Nurse Practitioner Psychiatric/Mental Health
DX: F22 Delusional disorders (principal); F33.3 Major depressive disorder, recurrent, severe with psychotic symptoms; F43.12 Post-traumatic stress disorder, chronic; F41.1 Generalized anxiety disorder; F41.0 Panic disorder [episodic paroxysmal anxiety]
CPT/HCPCS: 99214

== ENCOUNTER → 2021-03-15 08:26 | Outpatient (BNVA) | payer MEDICARE, MEDICAID, SELFPAY ==
[2020-10-28 07:51] VITALS: BP 120/84; BMI 35.5
== END ==
PROVIDERS: PCP Family Medicine; Visit Provider Internal Medicine
DX: Z13.1 Encounter for screening for diabetes mellitus (principal); E03.8 Other specified hypothyroidism; E06.3 Autoimmune thyroiditis; E04.1 Nontoxic single thyroid nodule; R13.10 Dysphagia, unspecified; E11.9 Type 2 diabetes mellitus without complications
CPT/HCPCS: 36415; 83036; 84439; 84443; 99214

== ENCOUNTER 2021-03-15 09:33 | Outpatient (CLI) | payer MEDICARE, MEDICAID, SELFPAY ==
[2020-10-28 07:51] VITALS: BP 120/84; BMI 35.5
[2021-03-15 10:37] LABS: Estmated Average Glucose 114; Hemoglobin A1C 5.6 % (4.0-6.0)
[2021-03-15 10:43] LABS: Free T4 Free Thyroxine 1.38 ng/dL (0.82-1.77); Thyroid Stimulating Hormone 2.13 uIU/mL (0.27-4.20)
== END 2021-03-15 09:34 | disposition home or self-care (01) ==
LOC: LAB 09:39
PROVIDERS: PCP Family Medicine; Visit Provider Internal Medicine
DX: E03.8 Other specified hypothyroidism (principal); Z13.1 Encounter for screening for diabetes mellitus; E06.3 Autoimmune thyroiditis; E11.9 Type 2 diabetes mellitus without complications
CPT/HCPCS: 36415; 83036; 84439; 84443

== ENCOUNTER → 2021-03-16 07:21 | Outpatient (BNVA) | payer MEDICARE, MEDICAID, SELFPAY ==
[2020-10-28 07:51] VITALS: BP 120/84; BMI 35.5
== END ==
PROVIDERS: PCP Family Medicine; Visit Provider Nurse Practitioner Psychiatric/Mental Health
DX: F33.3 Major depressive disorder, recurrent, severe with psychotic symptoms (principal); F43.12 Post-traumatic stress disorder, chronic; F41.1 Generalized anxiety disorder; F41.0 Panic disorder [episodic paroxysmal anxiety]; F22 Delusional disorders
CPT/HCPCS: 99214

== ENCOUNTER → 2021-03-21 09:47 | Outpatient (BNVA) | payer MEDICARE, MEDICAID, SELFPAY ==
[2020-10-28 07:51] VITALS: BP 120/84; BMI 35.5
== END ==
PROVIDERS: PCP Family Medicine; Visit Provider Nurse Practitioner Psychiatric/Mental Health
DX: F43.12 Post-traumatic stress disorder, chronic (principal); Z79.899 Other long term (current) drug therapy
CPT/HCPCS: 80061; 83036

== ENCOUNTER → 2021-04-27 10:19 | Outpatient (BNVA) | payer MEDICARE, MEDICAID, SELFPAY ==
[2021-03-22 16:37] VITALS: BP 119/76; BMI 37.4
== END ==
PROVIDERS: PCP Family Medicine; Visit Provider Nurse Practitioner Psychiatric/Mental Health
DX: F22 Delusional disorders (principal); F33.3 Major depressive disorder, recurrent, severe with psychotic symptoms; F43.12 Post-traumatic stress disorder, chronic; F41.1 Generalized anxiety disorder; F41.0 Panic disorder [episodic paroxysmal anxiety]
CPT/HCPCS: 99214

== ENCOUNTER → 2021-06-08 14:00 | Outpatient (BNVA) | payer OTHER, MEDICAID, SELFPAY ==
[2021-06-01 12:53] VITALS: BP 119/76; BMI 37.4
== END ==
PROVIDERS: PCP Family Medicine; Visit Provider Surgery
DX: E66.01 Morbid (severe) obesity due to excess calories (principal); E88.81 Metabolic syndrome and other insulin resistance; Z68.39 Body mass index [BMI] 39.0-39.9, adult; E11.9 Type 2 diabetes mellitus without complications
CPT/HCPCS: 80048; 80053; 80061; 82306; 82310; 82607; 82728; 82746; 83540; 83550; 83735; 83970; 84425; 84443; 84630; 85025

== ENCOUNTER 2021-06-14 10:53 | Inpatient (IN) | payer MEDICARE, MEDICAID, SELFPAY ==
[2021-03-22 16:37] VITALS: BP 119/76; BMI 37.4
[2021-06-01 12:53] VITALS: BP 119/76; BMI 37.4
[2021-06-08 11:18] VITALS: BMI 38.4
[2021-06-08 11:42] LABS: Eosinophils % 0.2 %; Hematocrit 46.4 % (37.0-47.0); Hemoglobin 15.2 g/dL (11.5-15.3); Lymphocytes # 1.7 10^3/uL (0.8-4.8); Lymphocytes % 33.7 %; Mean Corpuscular HGB Conc 32.8 g/dL (30.0-36.0); Mean Corpuscular Hemoglobin 29.4 pg (28.0-34.0); Mean Corpuscular Volume 89.7 fl (81-99); Mean Platelet Volume 10.9 fL (7.4-10.4); Monocytes # 0.4 10^3/uL (0.2-0.9); Monocytes % 8.9 %; Neutrophils # 2.82 10^3/uL (1.8-7.7); Neutrophils % 56.8 %; Nucleated Red Blood Cells % 0 %; Platelet Count 229 10^3/cmm (130-400); Red Blood Count 5.17 10^6/uL (4.1-5.3); Red Cell Distribution Width 12.2 % (12.1-15.1)
--- NOTE | 2021-06-08 11:49 | P.ANESASSM_ITS ---
Pre-Anesthetic Assessment Height/Weight: Height 1.6 m Weight 98.43 kg Operation Date: 06/14/21 07:00 Proposed Procedures p Laparoscopic Gastric Sleeve w/ EGD 49451/91028/e66.01(Not Applicable) - Bull Davenport MD Familial anesthetic complications: none Was Beta Chip taken within 24 hours: N/A Was Clonidine taken within 24 hours: N/A Social No alcohol and No tobacco Exam alert, oriented x 3, clear to auscultation bilaterally and regular rate & rhythm Airway Submandibular: within normal limits Cervical ROM: within normal limits Mallampati: Class II Dentition: partials (lower) Pulmonary None reported CV/HEM Hypertension None reported Hepatic None reported GI None reported Metabolic Diabetes Mellitus (diet controlled), Morbid Obesity and Thyroid Disease [facility] [place] None reported Neuropsych Anxiety, Bipolar and Depression Anesthetic Plan ASA status: 2 Anesthesia: General Risk of > 500 ml blood loss (7ml/kg in children): No Medications/Allergies Home Medications Medication Instructions Recorded Confirmed Last Taken Type lisinopril 20 mg tablet 20 mg PO DAILY 90 Days #90 tab 03/31/21 06/08/21 Unknown Rx ropinirole 0.5 mg tablet 0.5 mg PO TID 90 Days #270 tab MDD 03/31/21 06/08/21 Unknown Rx 4 tabs ciclopirox 0.77 % topical cream 1 applic TOPICAL BID #30 g 04/22/21 06/08/21 Unknown Rx clobetasol 0.05 % scalp solution 1 applic TOPICAL DAILY #50 ml 04/22/21 06/08/21 Unknown Rx ketoconazole 2 % shampoo 1 applic TOPICAL .2 x weekly #120 04/22/21 06/08/21 Unknown Rx ml hydroxyzine pamoate 25 mg capsule 25 mg PO BID PRN #60 cap 04/27/21 06/08/21 Unknown Rx (Vistaril) venlafaxine 150 mg 150 mg PO QAM #90 cap 04/27/21 06/08/21 Unknown Rx capsule,extended release 24 hr fluphenazine HCl 1 mg tablet 1 mg PO QAM 06/08/21 06/08/21 Unknown History hydrochlorothiazide 25 mg tablet 25 mg PO QAM 06/08/21 06/08/21 Unknown History levothyroxine 88 mcg tablet 88 mcg PO QAM 06/08/21 06/08/21 Unknown History Allergies Allergy/AdvReac Type Severity Reaction Status Date / Time poison leslie extract Allergy Unknown rash Verified 06/08/21 11:11 poison sumac extract Allergy rash Verified 06/08/21 11:11 haloperidol [From Haldol] AdvReac Unknown Unknown Verified 06/08/21 11:11 [facility] Anesthesia Medical History Chronic post-traumatic stress disorder Delusional disorders vs Schizophrenia Depression, major, recurrent, 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, implants and grafts, initial encounter Generalized anxiety disorder with panic attacks History of nonmelanoma skin cancer 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 Panic disorder Psychiatric care Psychiatric care Restless leg syndrome Sjogrens syndrome Surgical History History of colonoscopy 2020 History of partial hysterectomy History of tonsillectomy and adenoidectomy Hx of bilateral breast reduction surgery Hx of cholecystectomy Status post hardware removal Family History Other Diabetes Hypertension Psychiatric illness Social History Smoking and tobacco status: never smoked Alcohol intake: never Adopted: No Caregiver/support person: No Lives independently: No Household members: none Housing: Apartment Marital status: Marital status details: last in 2015 Number of children: 2 Number of grandchildren: 3 Highest education level completed: 12th Grade, No Diploma service: No Current occupational status: disabled Pets and animals: Yes Pets & animals: cat(s) History of recent travel: Yes (January 2020) Out of state: Yes Leisure activites: other Leisure activities details: watch tv Sexually active: No Current gender identity: Female Estefania/Tenriism: Rastafari Special estefania needs: No Agree to transfusion: Yes Financial difficulty paying for basics: Somewhat Hard Female Reproductive History Para: 2 Spontaneous abortions: No Data Anesthesia : 06/08/21 11:35 06/08/21 11:35 Short CBC 06/08/21 Range/Units 11:35 WBC 5.0 (4.0-10.0) 10^3/uL Hgb 15.2 (11.5-15.3) g/dL Hct 46.4 (37.0-47.0) % MCV 89.7 (81-99) fl Plt Count 229 (130-400) 10^3/cmm Neut % (Auto) 56.8 % Neut # (Auto) 2.82 (1.8-7.7) 10^3/uL Cardiac Studies: No Data to Display
[2021-06-08 11:58] LABS: Anion Gap 15.3 (5-19); Blood Urea Nitrogen 20 mg/dL (8-23); Calcium 9.1 mg/dL (8.5-10.5); Carbon Dioxide 28 mmol/L (22-29); Chloride 99 mmol/L (98-107); Glomerular Filtration Rate 84.5 mL/min (90-130); Glucose 85 mg/dL (65-115); Osmolality Calculated 290 mOsm/kg (285-295); Potassium 3.3 mmol/L (3.5-5.1); Sodium 139 mmol/L (136-145)
[2021-06-14] VITALS (26 sets, daily range): BP systolic 99–193; BP diastolic 63–115; PULSE 64–110; RESP 15–21; TEMP 36.1–37; O2SAT 90–99; BMI 37.3
[2021-06-14] MEDS: scopolamine 1.5 Patch 1 PATCH TRANSDERMA (05:58)
[2021-06-14] MEDS: pantoprazole 40 mg SDV IVP (05:58)
[2021-06-14] MEDS: heparin 5,000 unit/mL INJ 1 mL 5000 UNIT SUBCUT (05:59)
[2021-06-14] MEDS: acetaminophen 1,000 MG/100 ML PIGGYBACK 400 MG IV ×2 (05:59→12:27)
[2021-06-14] MEDS: sodium chloride 0.9% 1,000 ML 999 ML IV (06:00)
--- NOTE | 2021-06-14 06:08 | W.PM.OPSUD ---
Surgery/Procedure H&P Update DATE OF PROCEDURE: June 14, 2021 DATE H&P PERFORMED: 07/25/19 H&P UPDATE INFORMATION: I have reviewed H&P completed within last 30 days, I have examined patient prior to procedure and Changes to prior documentation as noted here (Patient's current 211 pounds from 222 pounds) PREOP DIAGNOSIS: c PRIMARY INDICATION FOR PROCEDURE: The same PLANNED PROCEDURE: Operation Date: 06/14/21 07:00 Proposed Procedures p Laparoscopic Gastric Sleeve w/ EGD [id number]/e66.01(Not Applicable) - Bull Davenport MD
[2021-06-14] MEDS: sodium chloride 0.9% 1,000 ML 30 ML IV (06:20)
--- NOTE | 2021-06-14 06:33 | P.ANESUD_ITS ---
Pre-Anesthetic Update Pre-Anesthetic Assessment: Date of Surgery/Procedure: 06/14/21 Preop Nena gnosis: c Proposed Procedure: Operation Date: 06/14/21 07:00 Proposed Procedures p Laparoscopic Gastric Sleeve w/ EGD [id number]/e66.01(Not Applicable) - Bull Davenport MD Any changes to Pre-Anesthetic Assessment?: No Last Intake: Intake Last Liquid Date 06/13/21 Last Liquid Time 19:00 Last Solid Date 06/14/21 Last Solid Time 19:00 Labs Last 48hrs: Short CBC 06/08/21 Range/Units 11:35 Potassium 3.3 L (3.5-5.1) mmol/L Vitals: Temperature 98.6 F 06/14/21 05:40 Temperature Source Temporal Artery S can 06/14/21 05:40 Pulse Rate 84 06/14/21 05:40 Respiratory Rate 18 06/14/21 05:40 Blood Pressure 150/105 06/14/21 05:40 Blood Pressure Anastasia n 120 06/14/21 05:40 Pulse Oximetry 94 06/14/21 05:40 Oxygen Delivery Me thod 06/14/21 05:48 Exam: Pre-Anes Outpt Exam: alert, oriented x 3, clear to auscultation bilaterally and regular rate & rhythm Cardiac Studies: No Data to Display
--- NOTE | 2021-06-14 09:20 | P.OP_ITS ---
Operative Report Date of procedure: June 14, 2021 Pre-op diagnosis: Preop Diagnosis obesity Post-op diagnosis: Obesity Post-op findings: Left-sided abdominal wall omental adhesions Procedure done: Laparoscopic vertical sleeve gastrectomy intraoperative EGD Implants: Pieces of Surgicel towards the GE junction and superior pole of the spleen Specimens removed/disposition: Subtotal gastrectomy with gastric sleeve, sutures marked proximal Surgeon: Bull Davenport MD Collection Advisor: Surgical techjorge l Slade and Cheryl Circulating nurses Celine and Susana Anesthesia: General (KRISTEN Paul) Estimated blood loss (mL): 25 IV fluids (mL): 2,000 Urine output (mL): 150 Procedure: Patient was identified in the holding area, appropriate pharmacologic DVT prophylaxis was given and preoperative IV fluid hydration, patient was then taken to the operating room where the patient was placed in supine position, intubated by anesthesia prophylactic antibiotics were given per protocol, Time- out was done verifying the patient's name/date of /planned procedure and destination after the procedure, all were in agreement.SCDs confirmed to be fun ctioning, and beta anh protocol was confirmed. A Ellis catheter was inserted by the circulating nurse revealing clear urine. A foot board was applied to secure the patient while the patient is placed in reversed Trendelenburg, all pressure points were padded, and the patient was appropriately secured to the table, anesthesia was asked to rotate the table back and forth to verify that the patient is appropriately secured, and that was the case. The abdomen was prepped and draped under the usual sterile technique. A transverse incision was made with a 15 blade scalpel approximately 15 cm below the xiphoid process and 3 cm left of the midline. A 5 mm optical trocar port was placed under direct vision into the peritoneal cavity without initial evidence of injury to peritoneal structures upon entry. The peritoneal cavity was insufflated with carbon dioxide gas up to 15 mmHg pressure. A 45? angle laparoscopy was placed through the port into the peritoneal cavity there was no significant blood, fluid, or evidence of intra- abdominal injury under direct visualization, Longer trocars were then used; a 12 mm trocar port was placed in the right epigastric region and a fourth 5 mm trocar port was placed in the mid epigastric region more caudad than and medial to the previous port. A 5 mm trocar was inserted midway between the left lateral flank expected trocar site and the initial 5 mm trocar. There after the index 5 mm trocar was switched to a 12 mm trocar under direct visualization after extending the skin incision. I lifted the omentum up to make sure there were no injuries encountered from the initial trocar insertion, the underlying transverse colon and small bowel viscera were normal. A subxiphoid stab incision was made and dissection into the peritoneum with 5 mm obturator. A grasping laparoscopic clamp was inserted through here and clamped to the right erlin of the diaphragm to elevate the liver for the entirety of the case. All trocars inserted were long arc trocars due to the thick layer of subcutaneous tissue that the patient has.Patient was then placed in the reversed Trendelenburg. Adhesions were noted as well as the left side of the abdomen that they were taken down using Enseal device under direct visualization and at that point I was able to introduce the additional 5 mm trocar towards the far left lateral aspect of the abdomen Following this, the greater curvature of the stomach was freed from the omentum using the ENSEAL device. This division included the short gastric vessels proximally. This dissection was carried from approximately 4 cm-6 cm proximal to the pylorus and extending all the way up to the angle of Hiss. During this process the posterior aspect of the stomach was mobilized from the underlying peritoneum and the posterior aspect of the stomach was well exposed. With the greater curvature of the stomach exposed from within 4-6 cm of the pylorus and extending to the angle of Hiss, which also included the posterior stomach, a 40 Salvadorean standard template passed under direct vision down the esophagus, stomach, and into the first part of the duodenum by the anesthesia provider and under direct guidance and visualization by me, via the laparoscopy. There was some oozing towards one of the short gastric vessels but I was able to gain control using the Enseal device and Surgicel was placed towards that spot towards the superior pole of the spleen. Using the template 40 Salvadorean aligned along the lesser curvature of the stomach and all the way to the first part of the Duodenum, the 40 Salvadorean Bougie was used as a template the laparoscopic vertical gastric sleeve was performed starting from a point about 5 cm from the pylorus along the greater curvature. Using the Dada Laparoscopic THOM linear cutting stapler with [employer] enforcement, a series of shayy were used to transect the stomach in a vertical fashion along the left side of the template. Through the entire division of the stomach using the staplers, the template was always checked to be in good place and well aligned to the lesser curvature while dividing the stomach. This was carried all the way to the angle of [facility]. [place] 60 mm Green loads were used for the distal third of the stomach and Gold loads were used for the more proximal part of the stomach and then blue loads with reinforcement. All staplers were reinforced by Endopath. The staple line along the remaining tubularized stomach was tested for leaks and bleeding under direct vision as the 40 Salvadorean template was exchanged (and there was no evidence of blood on the tip of the template) by a standard diagnostic EGD via the mouth by my me after I scrubbed out, insufflation was achieved using CO2 gas and the staple line submerged under saline, meanwhile a clamp was applied distally onto the end of the tubularized stomach to allow insufflation test for leak. There was no evidence of leak .There was adequate hemostasis along the staple line.EGD was taken out at this point after deflation of the tubularized stomach. I scrubbed the back in. The transected partial stomach, which included the greater curvature, was removed from the peritoneum through the first 12 mm trocar site, and was sent for permanent pathology ,the specimen was oriented by 2-0 silk sutures placed proximally prior to closure of the fascia. A final look laparoscopy identified no injuries or bleeding. Bilateral TAP (transversus abdominous plain peripheral nerve block) block using Exparel 20 mL Exparel,40 ml Normal saline,20 ml bupivacaine 0.25% 30 mL on each side injected, 20 mL injected the port sites. An interrupted #1 PDS suture on a granny needle suture passer was used to close the right epigastric and the other 12 mm trocar left of the midline fascial defects under direct visualization. The other trocars were removed under direct vision and no evidence of bleeding was identified. The pneumoperitoneum was decompressed. All skin incisions were irrigated with saline, then closed with shayy, followed by application of sterile dressings. The patient was extubated and taken to the recovery room with normal vital signs. Ellis catheter was maintained All counts of instruments, sponges and needles were completed at the end of the procedure I was present for the whole entire procedure
[2021-06-14] MEDS: fentaNYL 50 mcg/mL INJ 2mL IVP (09:56)
--- NOTE | 2021-06-14 10:07 | PC.NURSE ---
applied statlock to right leg
[2021-06-14] MEDS: hyDRALAzine 20 mg/mL INJ 1 mL 5 MG IVP ×2 (10:12→10:30)
[2021-06-14 12:03] LABS: Glucose Point of Care 137 mg/dL (70-110)
[2021-06-14] MEDS: famotidine 20 mg/2 mL INJ IVP ×2 (12:23→21:48)
[2021-06-14] MEDS: ondansetron 2 mg/ML SDV 2 mL 4 MG IVP ×2 (12:23→19:34)
[2021-06-14] MEDS: lactated ringers 1,000 ML 150 ML IV ×3 (12:48→19:24)
--- NOTE | 2021-06-14 18:57 | ANE.PACU2 ---
Inpatient post-anesthesia follow up: Airway intact: Yes Vital signs: Temperature 97.6 F Pulse Rate 107 Respiratory Rate 17 Blood Pressure 158/90 Pulse Oximetry 96 Oxygen Delivery Me thod Room Air Oxygen Flow Rate 2 Fraction of Inspir ed Oxygen Hydration adequate: Yes Nausea and vomiting: No Pain level: 1 Mental status: Baseline
[2021-06-14] MEDS: morphine 4 mg/mL SDV 1 mL 2 MG IVP (19:34)
[2021-06-15] VITALS (11 sets, daily range): BP systolic 131–166; BP diastolic 75–99; PULSE 94–113; RESP 16–18; TEMP 36.8–37.1; O2SAT 92–94
[2021-06-15] MEDS: acetaminophen 1,000 MG/100 ML PIGGYBACK 400 MG IV (01:55)
[2021-06-15] MEDS: lactated ringers 1,000 ML 150 ML IV (01:55)
[2021-06-15 03:14] LABS: Hematocrit 44.9 % (37.0-47.0); Hemoglobin 14.7 g/dL (11.5-15.3)
[2021-06-15 03:33] LABS: Anion Gap 14.1 (5-19); Blood Urea Nitrogen 8 mg/dL (8-23); Calcium 8.3 mg/dL (8.5-10.5); Carbon Dioxide 28 mmol/L (22-29); Chloride 97 mmol/L (98-107); Glomerular Filtration Rate 124.6 mL/min (90-130); Glucose 130 mg/dL (65-115); Osmolality Calculated 282 mOsm/kg (285-295); Potassium 3.1 mmol/L (3.5-5.1); Sodium 136 mmol/L (136-145)
[2021-06-15] MEDS: lidocaine 1% 5 ML in potassium chloride premix 100 ML 25 ML IV (06:50)
--- NOTE | 2021-06-15 07:31 | PM.PN ---
Subjective Subjective: Patient overall feels better she did have some right shoulder pain likely due to retained pneumoperitoneum. Continue to have adequate urine output. Slightly tachycardic likely due to pain but otherwise vital signs are stable. H&H stable Medications: Reviewed: Yes Vitals/I&O/Wt Last Vital Signs Temp 98.5 F 06/15/21 03:57 Pulse 94 06/15/21 06:04 Resp 16 06/15/21 03:57 BP 145/86 06/15/21 06:04 Pulse Ox 94 06/15/21 06:04 06/14/21 06/15/21 06/15/21 22:59 06:59 14:59 Intake Total 907.5 / 5067.5 1077.5 / 6145.0 Output Total 3275 / 3600 2275 / 5875 Balance -2367.5 / 1467.5 -1197.5 / 270.0 Weight last 48 hrs Weight 211 lb Weight 211 lb Physical Exam Narrative: Patient is conscious alert oriented X3 No apparent distress BMI 37.4 Head and neck examination PERRLA no masses no cervical lymphadenopathy no jaundice Cardiac examination audible S1-S2 no murmurs no gallops no arrhythmias Chest is clear bilateral,abscence of Rhonchi or wheezes,no surgical emphysema Abdomen nontender except mildly at the incision site nondistended soft no organomegaly guarding or rigidity/no signs of peritonitis. Dressing in place Extremities no cyanosis no clubbing no edema Urinary Catheter Management: Ellis: Cath Placed During This Visit: yes Reason for Continuing Indwelling Catheter: Acute Urinary Retention or Obstruction Urinary Catheter Date of Insertion: 06/14/21 Urinary Catheter Time of Insertion: 07:10 Data : 06/15/21 03:00 06/15/21 03:00 A&P Assessment and plan (1) Status post laparoscopic sleeve gastrectomy: Assessment 65 years old female patient status post laparoscopic vertical sleeve gastrectomy 06/14/2021 Plan Encourage ambulation Incentive spirometer every hour DC Ellis cath Replacement of potassium with 40 mEq KCl with lidocaine IV Following upper GI study once this is cleared we will start the patient on phase 1 post bariatric surgery diet Will drop LR to 100 mL/h instead of 150 Assurance and education All questions have been answered and all concerns have been addressed to patient's satisfaction. Status: Acute Attestations Medical Necessity Statement*: Patient requiring inpatient hospitalization for perioperative care and awaiting upper GI study Time Spent in Patient Care: 16 - 35 minutes Coding Level of Care Code Acute Welder Helper for Chg Fwd Diagnoses Status post laparoscopic sleeve gastrectomy Z98.84
--- NOTE | 2021-06-15 08:00 | FL_ITS ---
WS: [id number] Limited upper GI, Gastrografin. HISTORY: Recent gastric sleeve surgery. COMPARISON: No similar studies. Fluoroscopy time: 1.0 minutes. Spot radiograph number: 09. With the patient upright patient was able to drink the Gastrografin mixture without difficulty. The c ontrast flowed readily through the distal esophagus into the gastric sleeve. There is no significant amount of edema and no delay in emptying from the stomach. No extravasation from the stomach is ident ified. Several surgical sutures are noted in the RIGHT upper quadrant and also LEFT upper abdomen. [place] upper GI series [id number] IMPRESSION: 1. Satisfactory appearance of the gastric sleeve. No extravasation from the GI tract. 2. No significant amount of edema.
[2021-06-15] MEDS: morphine 4 mg/mL SDV 1 mL 2 MG IVP (08:19)
[2021-06-15] MEDS: ondansetron 2 mg/ML SDV 2 mL 4 MG IVP (08:20)
[2021-06-15] MEDS: diatrizoate meglumine 120 mL Sol PO (09:02)
--- NOTE | 2021-06-15 10:09 | PC.CHAP ---
Pastoral Care Encounter/Spiritual Assessment Type of Contact [] Declined design chief visit [] Patient/Family/Request visit [] Outpatient visit [] Follow-up visit [] Physician referral [] Code/Alert [x] Routine visit [] Staff referral [] Actively dying [] Patient sleeping [] Family support [] [] Out of room [] Palliative care [] [] Receiving care in room [] Pre-surgical visit [] Trauma [] Long length of stay [] ICU visit [] Other: Relational/Emotional Strength [x] Patient feels connected with others/family/visitors/staff [] Distress [] Loneliness/isolation [] Abandonment Spirituality of Patient [x] Person of Estefania [x] Attends Voodoo of their Estefania [x] Believes in Prayer [] Reads Bible or Gnosticism materials [] There are Spiritual issues to be addressed Hi Lift Operator Interventions x[] Prayer [x] Active listening [x] Non-anxious presence [] Spiritual/emotional support [] Crisis/trauma care [] Spiritual counseling [] Bereavement support [] Provided bereavement packet [] Provided Bible/devotional materials [] Provided toy/stuffed animal, coloring book to patient or family member [] Provided Communion [] Anointing/[place] [] Salvation [x] Completed spiritual assessment [] Other: Impact on Illness or Injury [] Angry [] Fearful [] Anxious [] Often cries [] Exhaustion [] Unable to work [] Unable to attend scientologist [] Unable to walk/stand [] Unable to read [] Unable to drive [] Unable to eat/drink [] Unable to sleep [] Unable to be with family [] Patient intubated [] Other: Summary Time spent with patient 10 min
[2021-06-15] MEDS: lactated ringers 1,000 ML 100 ML IV (10:29)
[2021-06-15] MEDS: famotidine 20 mg/2 mL INJ IVP ×2 (10:31→21:01)
[2021-06-15] MEDS: HYDROcodone-acetaminophen 5-325 mg Tablet 1 TAB PO ×2 (10:31→17:24)
[2021-06-15] MEDS: heparin 5,000 unit/mL INJ 1 mL 5000 UNIT SUBCUT ×2 (10:31→18:28)
[2021-06-15] MEDS: lisinopril 20 mg Tablet 40 MG PO (17:24)
[2021-06-15] MEDS: ropinirole 0.25 mg Tablet 0.5 MG PO (20:50)
[2021-06-16] VITALS (8 sets, daily range): BP systolic 117–141; BP diastolic 69–86; PULSE 93–113; RESP 16–18; TEMP 36.6–37.1; O2SAT 94–97
[2021-06-16] MEDS: HYDROcodone-acetaminophen 5-325 mg Tablet 1 TAB PO ×3 (00:11→15:16)
[2021-06-16 01:20] LABS: Hematocrit 48.8 % (37.0-47.0); Hemoglobin 15.4 g/dL (11.5-15.3)
[2021-06-16 01:42] LABS: Anion Gap 15.4 (5-19); Blood Urea Nitrogen 11 mg/dL (8-23); Calcium 9.2 mg/dL (8.5-10.5); Carbon Dioxide 26 mmol/L (22-29); Chloride 100 mmol/L (98-107); Glomerular Filtration Rate 124.6 mL/min (90-130); Glucose 119 mg/dL (65-115); Osmolality Calculated 287 mOsm/kg (285-295); Potassium 3.4 mmol/L (3.5-5.1); Sodium 138 mmol/L (136-145)
[2021-06-16] MEDS: heparin 5,000 unit/mL INJ 1 mL 5000 UNIT SUBCUT ×2 (02:50→10:23)
[2021-06-16] MEDS: potassium chloride oral liq 20 mEq/15 mL UDC 40 MEQ PO (06:44)
[2021-06-16] MEDS: lisinopril 20 mg Tablet 40 MG PO (07:45)
[2021-06-16] MEDS: ropinirole 0.25 mg Tablet 0.5 MG PO ×2 (07:45→15:16)
[2021-06-16] MEDS: famotidine 20 mg/2 mL INJ IVP (07:45)
--- NOTE | 2021-06-16 12:36 | P.DS_ITS ---
Discharge Providers Date of Admission: 06/14/21 10:53 Date of Discharge: June 16, 2021 Attending Provider at Admission: Bull Davenport MD Attending Provider at Discharge: Bull Davenport MD Primary Care Provider: Carmen Mauro MD Diagnoses at Discharge Discharge Diagnosis (1) Status post laparoscopic sleeve gastrectomy: Status: Resolved Reason for Visit Reason for Visit: morbid obesity Brief History: 10/27/2020 This is a pleasant 65 years old female patient with a current BMI of 39.3 and weighs 222 pounds.? 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 Patient does not report any Previous Bariatric surgery Patient's quality of life affected in a nonpositive way Psychological status history of psychosis Patient has been struggling with weight and has tried different modalities without obvious success, patient comes today showing interest in Bariatric surgery as a sustained option for obesity management. Patient believes that her antipsychotic medications are contributing to her weight gain. ? 12/15/2020 Patient comes today and continues to show interest in weight loss surgery.? She had lost 7 pounds.? And she has been on lower calorie diet with a current weight of 214 pounds and a BMI of 37.9.? Patient has been seen and evaluated by Dr. Carmen Mauro and has been undergoing supervised medical weight loss. 03/09/2021 Overall feels well, yet she did gain some weight since last encounter and currently her weight is 222 pounds with a BMI of 39.3. Pending psych and nutrition evaluation. Patient continues to show interest in weight loss surgery 04/13/2021 Patient comes today and appears that she has been diagnosed recently with diabetes mellitus type 2.? And continues to struggle with her obesity status with a current weight of 215 pounds and a BMI of 38.? Patient is working hard to lose weight and undergoing supervised medical weight loss by Dr. Carmen Mauro.? Patient undergone an upper GI study per my request and showed normal esophagogram and upper GI series in preparation for weight loss surgery with particular focus on laparoscopic vertical sleeve gastrectomy. Patient was seen and evaluated by psychology service and is psychologically an appropriate candidate for bariatric surgery. 06/08/2021 Patient comes to the for her preop visit as she is prepared well for the laparoscopic vertical sleeve gastrectomy.? Current weight 215 pounds and a BMI of 38, she has been started on liquid protein diet. Hospital Course Hospital Course Patient returned from hospital for status post laparoscopic vertical sleeve gastrectomy. Were she continued to have stable vital signs and output. Has been ambulatory and was placed on DVT prophylaxis in the form of pharmacologic and mechanical modes. Patient undergone upper GI study and showed no evidence of leak status post laparoscopic sleeve gastrectomy and no evidence of strictures or stenoses. Patient was then placed on post bariatric surgery phase I diet And tolerated that well,Without evidence of nausea or vomiting. Pain has been under good control switching from IV to oral pain medications. Patient met the appropriate and safe criteria for discharge home and has been passing gas.During hospitalization hypokalemia has been corrected and patient was discharged on a short prescription of potassium KCl 20 mEq daily for a week,till she is further evaluated by Dr. Mauro. As patient has been on chronic HCTZ therapy. Physical Exam Narrative: Patient is conscious alert oriented X3 No apparent distress BMI 37.4 Head and neck examination PERRLA no masses no cervical lymphadenopathy no jaundice Cardiac examination audible S1-S2 no murmurs no gallops no arrhythmias Chest is clear bilateral,abscence of? Rhonchi or wheezes,no surgical emphysema Abdomen nontender except mildly at the incision site nondistended soft no organomegaly guarding or rigidity/no signs of peritonitis.? Incisions are clean dry and intact Extremities no cyanosis no clubbing no edema Urinary Catheter Management: Ellis: Cath Placed During This Visit: yes, but has since been removed by the nurse Reason for Continuing Indwelling Catheter: Not indwelling catheter Urinary Catheter Date of Insertion: 06/14/21 Urinary Catheter Time of Insertion: 07:10 Date Urinary Catheter Removed: 06/15/21 Time Urinary Catheter Discontinued: 06:30 Discharge Data Studies Completed and Pending Completed Studies During Hospitalization Category Date Time Status [place] upper GI series [id number] Routine Exams 06/15/21 08:00 Completed Pending at discharge Category Date Time Status ES surgery / GI images Routine Exams 06/14/21 06:42 Taken Basic Metabolic Panel AM LABS Lab 06/17/21 04:00 Ordered Hemoglobin and Hematocrit AM LABS Lab 06/17/21 04:00 Ordered Pathology: Surgical [PTH] Routine Pth 06/14/21 09:40 Received Radiology Impressions Upper GI Series 06/15/21 08:00 IMPRESSION: 1. Satisfactory appearance of the gastric sleeve. No extravasation from the GI tract. 2. No significant amount of edema. Laboratory Results WBC 5.0 10^3/uL (4.0-10.0) 06/08/21 11:35 RBC 5.17 10^6/uL (4.1-5.3) 06/08/21 11:35 Hgb 15.4 g/dL (11.5-15.3) H 06/16/21 00:50 Hct 48.8 % (37.0-47.0) H 06/16/21 00:50 MCV 89.7 fl (81-99) 06/08/21 11:35 MCH 29.4 pg (28.0-34.0) 06/08/21 11:35 MCHC 32.8 g/dL (30.0-36.0) 06/08/21 11:35 RDW 12.2 % (12.1-15.1) 06/08/21 11:35 Plt Count 229 10^3/cmm (130-400) 06/08/21 11:35 MPV 10.9 fL (7.4-10.4) H 06/08/21 11:35 Neut % (Auto) 56.8 % 06/08/21 11:35 Lymph % (Auto) 33.7 % 06/08/21 11:35 Kidder % (Auto) 8.9 % 06/08/21 11:35 Eos % (Auto) 0.2 % 06/08/21 11:35 Baso % (Auto) 0.0 % 06/08/21 11:35 Neut # (Auto) 2.82 10^3/uL (1.8-7.7) 06/08/21 11:35 Lymph # (Auto) 1.7 10^3/uL (0.8-4.8) 06/08/21 11:35 Kidder # (Auto) 0.4 10^3/uL (0.2-0.9) 06/08/21 11:35 Eos # (Auto) 0.0 10^3/uL (0.0-0.8) 06/08/21 11:35 Baso # (Auto) 0.0 10^3/uL (0.0-0.1) 06/08/21 11:35 Nucleated RBC % (auto) 0 % 06/08/21 11:35 Nucleated RBCs # 0.0 /100WBC 06/08/21 11:35 Sodium 138 mmol/L (136-145) 06/16/21 00:50 Potassium 3.4 mmol/L (3.5-5.1) L 06/16/21 00:50 Chloride 100 mmol/L (98-107) 06/16/21 00:50 Carbon Dioxide 26 mmol/L (22-29) 06/16/21 00:50 Anion Gap 15.4 (5-19) 06/16/21 00:50 BUN 11 mg/dL (8-23) 06/16/21 00:50 Creatinine 0.5 mg/dL (0.5-0.9) 06/16/21 00:50 GFR Calculation 124.6 mL/min (90-130) 06/16/21 00:50 Glucose 119 mg/dL (65-115) H 06/16/21 00:50 POC Glucose 137 mg/dL (70-110) H 06/14/21 11:28 Calculated Osmolality 287 mOsm/kg (285-295) 06/16/21 00:50 Calcium 9.2 mg/dL (8.5-10.5) 06/16/21 00:50 Additional Data from Hospital Stay Postoperatively day 2 Patient was discharged home with specific post bariatric surgery education. Procedures Performed Laparoscopic vertical sleeve gastrectomy intraoperative EGD Implants: Pieces of Surgicel towards the GE junction and superior pole of the spleen Specimens removed/disposition: Subtotal gastrectomy with gastric sleeve, sutures marked proximal Surgeon: Bull Davenport MD Cinder Block Maker: Surgical techjorge l Slade and Cheryl Circulating nurses Celine and Susana Anesthesia: General (KRISTEN Paul) Estimated blood loss (mL): 25 IV fluids (mL): 2,000 Urine output (mL): 150 Procedure: Patient was identified in the holding area, appropriate pharmacologic DVT prophylaxis was given and preoperative IV fluid hydration, patient was then taken to the operating room where the patient was placed in supine position, intubated by anesthesia prophylactic antibiotics were given per protocol, Time- out was done verifying the patient's name/date of /planned procedure and destination after the procedure, all were in agreement.SCDs confirmed to be functioning, and beta anh protocol was confirmed. A Ellis catheter was inserted by the circulating nurse revealing clear urine. A foot board was applied to secure the patient while the patient is placed in reversed Trendelenburg, all pressure points were padded, and the patient was appropriately secured to the table, anesthesia was asked to rotate the table back and forth to verify that the patient is appropriately secured, and that was the case. The abdomen was prepped and draped under the usual sterile technique.? A transverse incision was made with a 15 blade scalpel approximately 15 cm below t he xiphoid process and 3 cm left of the midline. A 5 mm optical trocar port was placed under direct vision into the peritoneal cavity without initial evidence of injury to peritoneal structures upon entry. The peritoneal cavity was insufflated with carbon dioxide gas up to 15 mmHg pressure. A 45? angle laparoscopy was placed through the port into the peritoneal cavity there was no significant blood, fluid, or evidence of intra- abdominal injury under direct visualization, Longer trocars were then used; a 12 mm trocar port was placed in the right epigastric region and a fourth 5 mm trocar port was placed in the mid epigastric region more caudad than and medial to the previous port. A 5 mm trocar was inserted midway between the left lateral flank expected trocar site and the initial 5 mm trocar.? There after the index 5 mm trocar was switched to a 12 mm trocar under direct visualization after extending the skin incision. I lifted the omentum up to make sure there were no injuries encountered from the initial trocar insertion, the underlying transverse colon and small bowel viscera were normal. A subxiphoid stab incision was made and dissection into the peritoneum with 5 mm obturator.? A grasping laparoscopic clamp was inserted through here and clamped to the right erlin of the diaphragm to elevate the liver for the entirety of the case.? All trocars inserted were long arc trocars due to the thick layer of subcutaneous tissue that the patient has.Patient was then placed in the reversed Trendelenburg. Adhesions were noted as well as the left side of the abdomen that they were taken down using Enseal device under direct visualization and at that point I was able to introduce the additional 5 mm trocar towards the far left lateral aspect of the abdomen Following this, the greater curvature of the stomach was freed from the omentum using the ENSEAL device.? This division included the short gastric vessels proximally.? This dissection was carried from approximately 4 cm-6 cm proximal to the pylorus and extending all the way up to the angle of Hiss. During this process the posterior aspect of the stomach was mobilized from the underlying peritoneum and the posterior aspect of the stomach was well exposed. With the greater curvature of the stomach exposed from within 4-6 cm of the pylorus and extending to the angle of Hiss, which also included the posterior stomach, a 40 [place] standard template passed under direct vision down the esophagus, stomach, and into the first part of the duodenum by the anesthesia provider and under direct guidance and visualization by me, via the laparoscopy. There was some oozing towards one of the short gastric vessels but I was able to gain control using the Enseal device and Surgicel was placed towards that spot towards the superior pole of the spleen. Using the template 40 [place] aligned along the lesser curvature of the stomach and all the way to the first part of the Duodenum, the 40 [place] Bougie was used as a template the laparoscopic vertical gastric sleeve was performed starting from a point about 5 cm from the pylorus along the greater curvature. Using the [place] Laparoscopic THOM linear cutting stapler with [employer] Endopath enforcement, a series of shayy were used to transect the stomach in a vertical fashion along the left side of the template. Through the entire division of the stomach using the staplers, the template was always checked to be in good place and well aligned to the lesser curvature while dividing the stomach. This was carried all the way to the angle of Hiss. [place] 60 mm Green loads were used for the distal third of the stomach and Gold loads were used for the more proximal part of the stomach and then blue loads with reinforcement. All staplers were reinforced by Endopath. The staple line along the remaining tubularized stomach was tested for leaks and bleeding under direct vision as the 40 [place] template was exchanged (and there was no evidence of blood on the tip of the template) by a standard diagnostic EGD via the mouth by my me after I scrubbed out, insufflation was achieved using CO2 gas and the staple line submerged under saline, meanwhile a clamp was ap plied distally onto the end of the tubularized stomach to allow insufflation test for leak. There was no evidence of leak .There was adequate hemostasis along the staple line.EGD was taken out at this point after deflation of the tubularized stomach. I scrubbed the back in. The transected partial stomach, which included the greater curvature, was removed from the peritoneum through the first 12 mm trocar site, and was sent for permanent pathology ,the specimen was oriented by 2-0 silk sutures placed proximally prior to closure of the fascia.? A final look laparoscopy identified no injuries or bleeding. Bilateral TAP (transversus abdominous plain peripheral nerve block) block using Exparel 20 mL Exparel,40 ml Normal saline,20 ml bupivacaine 0.25% 30 mL on each side injected, 20 mL injected the port sites. An interrupted #1 PDS suture on a granny needle suture passer was used to close the right epigastric and the other 12 mm trocar left of the midline fascial defects under direct visualization. The other trocars were removed under direct vision and no evidence of bleeding was identified. The pneumoperitoneum was decompressed. All skin incisions were irrigated with saline, then closed with shayy, followed by application of sterile dressings. The patient was extubated and taken to the recovery room with normal vital signs. Ellis catheter was maintained All counts of instruments, sponges and needles were completed at the end of the procedure I was present for the whole entire procedure Vitals Last Vital Signs Temp 97.9 F 06/16/21 12:00 Pulse 111 H 06/16/21 12:00 Resp 16 06/16/21 12:00 BP 131/83 06/16/21 12:00 Pulse Ox 97 06/16/21 12:00 Discharge Plan Discharge Patient Disposition: Home Condition: Stable Prescriptions: New Protonix 40 mg tablet,delayed release (DR/EC) 40 mg PO DAILY 30 Days Qty: 30 3RF hydrocodone-acetaminophen 5-325 mg tablet 1 tab PO Q6H PRN (Reason: pain) Qty: 28 0RF ondansetron 4 mg tablet,disintegrating 4 mg PO Q8H PRN (Reason: nausea and vomiting) Qty: 30 1RF scopolamine base 1 mg over 3 days patch 3 day 1 patch transdermal Q3D PRN (Reason: nausea and vomiting) Qty: 4 1RF Continued lisinopril 20 mg tablet 20 mg PO DAILY 90 Days Qty: 90 1RF ketoconazole 2 % shampoo 1 applic topical .2 x weekly Qty: 120 3RF Rx Instructions: Lather into scalp 2 times weekly. Allow to sit on scalp for 5 minutes before rinsing. clobetasol 0.05 % solution 1 applic topical DAILY Qty: 50 3RF Rx Instructions: To itchy areas on scalp as needed ciclopirox 0.77 % cream 1 applic topical BID Qty: 30 4RF Rx Instructions: to face prn hydroxyzine pamoate [Vistaril] 25 mg capsule 25 mg PO BID PRN (Reason: anxiety) Qty: 60 3RF Rx Instructions: may take one capsule twice per day as needed for anxiety venlafaxine 150 mg capsule,extended release 24hr 150 mg PO QAM Qty: 90 2RF Rx Instructions: Take one capsule in the morning ropinirole 0.5 mg tablet 0.5 mg PO TID MDD 4 tabs 90 Days Qty: 270 1RF Rx Instructions: 340B 0.5 AM, 0.5 PM, 1 at bedtime levothyroxine 88 mcg tablet 88 mcg PO QAM 0RF fluphenazine HCl 1 mg tablet 1 mg PO QAM 0RF Rx Instructions: Take one tablet every morning hydrochlorothiazide 25 mg tablet 25 mg PO QAM 0RF Discharge Orders: Discharge Order (Routine); Ordered 06/16/21 Ordered By: Bull Davenport Referrals: Bull Davenport MD [Physician] - 06/22/21 3:30 pm (Return to bariatric surgery office in 1 week) Carmen Mauro MD [Primary Care Provider] - 06/23/21 9:15 am Discharge Diet: As Directed Discharge Activity: Limit activity as instructed Patient Instructions: Scopolamine (Absorbed through the skin), Hydrocodone/Acetaminophen (By mouth), Ondansetron (By mouth) (Zofran, Zofran ODT, Zuplenz), Pantoprazole (By mouth), Nutrition after Bariatric Surgery (GEN), Laparoscopic Sleeve Gastrectomy (GEN), Opioid Safety Activity Restrictions/Additional Instructions: Post discharge instructions: 1. Patient can shower after 48 hours from surgery. Do not soak in bathtub, swimming pool or hot tub for 4 weeks after surgery. 2. Leave incisions open to air, do not apply triple antibiotic ointment or medications on the incisions. 3. Up and walking as tolerated Activity 4. Do not lift more than 5 pounds first 2 weeks after surgery and not more than 25 pounds 6 to 8 weeks after surgery. Driving 5. Do not operate heavy machinery or drive while using pain medications Diet Stage 1 When do I start this stage? The day after your surgery (Day 1). You will get to start this stage after you pass the upper GI study and/or methylene blue test. How long will I be on this stage? Day 1 thru day 2 or until you are discharged from the hospital. Goals: ? Drink 4 to 6 ounces of fluid per hour. ? Aim for a total of 64 ounces of fluid daily. Add the following food/beverages to your diet: Clear broth or bouillon 100% no sugar added apple, cranberry, or grape juice. Dilute with 1 part juice and 1 part water. No citrus justice (i.e. organe juice, grapefruit juice, etc.) Limit to 8 ounces per or less per day. Tea (do not add milk) Coffee (do not add milk or creamer) Sugar-free gelatin Sugar-free popsicles Sugar-free flavored beverages (Crystal Light?, Sugar-Free Chon-Aid?, Propel?, PowerAde Zero?, Vitamin Water 10?, Fruit?0?, Sob? Lean?, etc.) Artificial sweetener of your choice Stage 2 When do I start this stage? Day 3 (or once you are discharged from the hospital) How long will I be on this stage? Day 3 thru Day 13 Goals: ? Drink 4 to 6 ounces of fluid per hour. ? Aim for a total of 64 ounces of fluid daily. ? Aim to meet protein goals with liquid protein supplements Add the following food/beverages to your diet: Protein supplements (thin, water-based supplement may be easier to digest at first while milk-based supplements may feel ``heavy?? and uncomfortable at first) Milk: 1%, skim, light soy milk, or lactose-free milk Pain control Patient was given a prescription for pain Nausea Nausea is common after surgery, take nausea medications as needed and stay on a liquid bland diet until nausea resolves. Breathing Patient was encouraged and was given incentive spirometer to use at home 10 times an hour while awake Call the office at [phone] during office hours or go the Emergency Room after hours for - ?Fever to 100.4 or greater ?Shaking chills ?Pain that increases over time ?Redness, warmth, or pus draining from incision sites ?Persistent nausea or inability to take in liquids Discharge Attestations Time Spent in Discharge Care*: greater than 30 min Specific Discharge Activities: educating patient and educating and/or suppor ting family/caregiver Status at Discharge: Cognitive status at discharge: cognitively intact , Behavioral status at discharge: cooperative , Functional status at discharge: independent ambulation , Overall status at discharge: patient is progressing back to baseline Quality Metrics Clinical Quality Measures [ No reported AMI, CVA or VTE this stay] Coding Level of Care Code Acute Chg FW DC note Diagnoses Status post laparoscopic sleeve gastrectomy Z98.84
== END 2021-06-16 15:54 | disposition home or self-care (01) | DRG 620 ==
LOC: MEDSURG 10:54
PROVIDERS: Anesthesiology; Admitting Provider Surgery; PCP Family Medicine; Visit Provider Surgery
PROC: 0DB64Z3 Excision of Stomach, Percutaneous Endoscopic Approach, Vertical (ICD-10-PCS; CPT 43775; principal; 2021-06-14 07:00)
PROC: 0DJ08ZZ Inspection of Upper Intestinal Tract, Via Natural or Artificial Opening Endoscopic (ICD-10-PCS; CPT 43235; 2021-06-14 07:00)
DX: E66.9 Obesity, unspecified (principal); F33.3 Major depressive disorder, recurrent, severe with psychotic symptoms; Z68.39 Body mass index [BMI] 39.0-39.9, adult; E78.5 Hyperlipidemia, unspecified; F43.12 Post-traumatic stress disorder, chronic; I10 Essential (primary) hypertension; G25.81 Restless legs syndrome; E06.3 Autoimmune thyroiditis; F41.1 Generalized anxiety disorder; F41.0 Panic disorder [episodic paroxysmal anxiety]; Z85.828 Personal history of other malignant neoplasm of skin; E11.9 Type 2 diabetes mellitus without complications; M25.511 Pain in right shoulder; E87.6 Hypokalemia; M35.00 Sjogren syndrome, unspecified
CPT/HCPCS: 36415; 36416; 51702; 74240; 80048; 82962; 85014; 85018; 85025; 88309; 96372; C9113; C9290; J0360; J1100; J1644; J2270; J2405; J2704; J2710; J3010; J3480; J3490; J7030; Q9963

== ENCOUNTER → 2021-06-21 11:44 | Outpatient (BNVA) | payer MEDICARE, MEDICAID, SELFPAY ==
[2021-06-01 12:53] VITALS: BP 119/76; BMI 37.4
== END ==
PROVIDERS: PCP Family Medicine; Visit Provider Family Medicine
DX: E87.6 Hypokalemia (principal); Z68.38 Body mass index [BMI] 38.0-38.9, adult; F33.3 Major depressive disorder, recurrent, severe with psychotic symptoms; F41.1 Generalized anxiety disorder; F41.0 Panic disorder [episodic paroxysmal anxiety]; Z98.890 Other specified postprocedural states; R01.1 Cardiac murmur, unspecified
CPT/HCPCS: 80048; 85025

== ENCOUNTER → 2021-06-22 10:12 | Outpatient (BNVA) | payer MEDICARE, MEDICAID, SELFPAY ==
[2021-06-01 12:53] VITALS: BP 119/76; BMI 37.4
== END ==
PROVIDERS: PCP Family Medicine; Visit Provider Surgery
DX: Z98.84 Bariatric surgery status (principal)

== ENCOUNTER → 2021-07-06 10:16 | Outpatient (BNVA) | payer MEDICARE, MEDICAID, SELFPAY ==
[2021-06-01 12:53] VITALS: BP 119/76; BMI 37.4
== END ==
PROVIDERS: PCP Family Medicine; Visit Provider Surgery
DX: Z98.84 Bariatric surgery status (principal); E88.81 Metabolic syndrome and other insulin resistance
CPT/HCPCS: 99024

== ENCOUNTER → 2021-07-18 10:48 | Outpatient (BNVA) | payer MEDICARE, MEDICAID, SELFPAY ==
[2021-06-01 12:53] VITALS: BP 119/76; BMI 37.4
== END ==
PROVIDERS: PCP Family Medicine; Visit Provider Nurse Practitioner Psychiatric/Mental Health
DX: F22 Delusional disorders (principal); F33.3 Major depressive disorder, recurrent, severe with psychotic symptoms; F43.12 Post-traumatic stress disorder, chronic; F41.0 Panic disorder [episodic paroxysmal anxiety]; F41.1 Generalized anxiety disorder
CPT/HCPCS: 99214

== ENCOUNTER → 2021-08-13 10:20 | Outpatient (BNVA) | payer MEDICARE, MEDICAID, SELFPAY ==
[2021-07-28 10:42] VITALS: BP 119/76; BMI 37.4
== END ==
PROVIDERS: PCP Family Medicine; Visit Provider Family Medicine
DX: E03.8 Other specified hypothyroidism (principal); E03.9 Hypothyroidism, unspecified; E06.3 Autoimmune thyroiditis; E87.6 Hypokalemia
CPT/HCPCS: 80048; 84443

== ENCOUNTER → 2021-08-16 10:33 | Outpatient (BNVA) | payer MEDICARE, MEDICAID, SELFPAY ==
[2021-07-28 10:42] VITALS: BP 119/76; BMI 37.4
== END ==
PROVIDERS: PCP Family Medicine; Visit Provider Internal Medicine
DX: R73.03 Prediabetes (principal); E03.8 Other specified hypothyroidism; E06.3 Autoimmune thyroiditis; E04.1 Nontoxic single thyroid nodule; R13.10 Dysphagia, unspecified
CPT/HCPCS: 99214

== ENCOUNTER → 2021-09-26 09:27 | Outpatient (BNVA) | payer MEDICARE, MEDICAID, SELFPAY ==
[2021-09-19 15:49] VITALS: BP 119/76; BMI 37.4
== END ==
PROVIDERS: PCP Family Medicine; Visit Provider Surgery
DX: Z98.84 Bariatric surgery status (principal)
CPT/HCPCS: 99024

== ENCOUNTER 2021-09-30 09:46 | Outpatient (CLI) | payer MEDICARE, MEDICAID, SELFPAY ==
[2021-09-19 15:49] VITALS: BP 119/76; BMI 37.4
--- NOTE | 2021-09-30 10:04 | MM_ITS ---
WS: [id number] Bilateral screening 3D tomosynthesis digital mammogram, 09/30/2021 Clinical Data: SCREENING Comparison: 08/09/2020, 08/08/2018, 08/16/2016, 09/12/2013, 03/29/2011, 12/05/2007, 11/29/2006. Findings: The breast parenchymal pattern shows fat replacement. No spiculated masses or clustered calcificatio ns are seen. There are no secondary signs of carcinoma. MM/[place] [id number] Impression: 1. Negative bilateral mammogram unchanged. 2. Recommend annual screening mammograms. BIRADS: 1-Negative FOLLOW UP: 1 Year Follow-up The CAD receiving checker was used.
== END 2021-09-30 09:47 | disposition home or self-care (01) ==
PROVIDERS: PCP Family Medicine; Visit Provider Family Medicine
DX: Z12.31 Encounter for screening mammogram for malignant neoplasm of breast (principal)
CPT/HCPCS: 77063; 77067

== ENCOUNTER → 2021-11-18 11:43 | Outpatient (BNVA) | payer MEDICARE, MEDICAID, SELFPAY ==
[2021-11-07 09:44] VITALS: BP 119/76; BMI 37.4
== END ==
PROVIDERS: PCP Family Medicine; Visit Provider Family Medicine
DX: E87.6 Hypokalemia (principal); I10 Essential (primary) hypertension; E78.5 Hyperlipidemia, unspecified
CPT/HCPCS: 80048; 83735

== ENCOUNTER 2021-12-14 12:05 | Outpatient (CLI) | payer MEDICARE, MEDICAID, SELFPAY ==
[2021-11-28 11:19] VITALS: BP 119/76; BMI 37.4
[2021-12-14 12:53] LABS: Basophils % 0.2 %; Eosinophils % 0.8 %; Hematocrit 44.4 % (37.0-47.0); Hemoglobin 14.3 g/dL (11.5-15.3); Lymphocytes # 1.8 10^3/uL (0.8-4.8); Lymphocytes % 35.3 %; Mean Corpuscular HGB Conc 32.2 g/dL (30.0-36.0); Mean Corpuscular Hemoglobin 29.7 pg (28.0-34.0); Mean Corpuscular Volume 92.3 fl (81-99); Mean Platelet Volume 10.4 fL (7.4-10.4); Monocytes # 0.5 10^3/uL (0.2-0.9); Monocytes % 9.2 %; Neutrophils % 54.3 %; Nucleated Red Blood Cells % 0 %; Platelet Count 241 10^3/cmm (130-400); Red Blood Count 4.81 10^6/uL (4.1-5.3); Red Cell Distribution Width 12.6 % (12.1-15.1)
[2021-12-14 13:07] LABS: Calcium 9.5 mg/dL (8.5-10.5)
[2021-12-14 13:11] LABS: Parathyroid Hormone 63.4 pg/mL (15-65)
[2021-12-14 13:19] LABS: Estmated Average Glucose 94; Hemoglobin A1C 4.9 % (4.0-6.0)
[2021-12-14 13:21] LABS: Folate Level 17.2 ng/mL (4.8-37.3)
[2021-12-14 13:27] LABS: Alanine Aminotransferase 19 U/L (0-33); Albumin Level 4.2 g/dL (3.5-5.2); Alkaline Phosphatase 89 U/L (35-105); Anion Gap 12.9 (5-19); Aspartate Amino Transferase 20 U/L (0-32); Blood Urea Nitrogen 19 mg/dL (8-23); Calcium 9.5 mg/dL (8.5-10.5); Carbon Dioxide 26 mmol/L (22-29); Chloride 104 mmol/L (98-107); Chol HDL Ratio 3.37 mg/dL (0.0-4.40); Cholesterol 219 mg/dL (0-200); Ferritin 188 ng/mL (15-150); Globulin 2.4 g/dL (1.3-4.6); Glucose 89 mg/dL (65-115); HDL Cholesterol 65 mg/dL (60-100); Iron 87 ug/dL (37-145); LDL Cholesterol Calculated 133 mg/dL (50-129); LDL HDL Ratio 2.05 RATIO (0.00-3.22); Magnesium 2.2 mg/dL (1.7-2.3); Osmolality Calculated 290 mOsm/kg (285-295); Percent Saturation 30.6 % (20-50); Potassium 3.9 mmol/L (3.5-5.1); Sodium 139 mmol/L (136-145); Thyroid Stimulating Hormone 0.91 uIU/mL (0.27-4.20); Total Bilirubin 0.3 mg/dL (0.15-1.2); Total Iron Binding Capacity 284 mcg/dl; Total Protein 6.6 g/dL (6.6-8.7); Triglycerides 105 mg/dL (0-150); Unsaturated Iron Binding 197 ug/dL (112-347); Vitamin B12 652 pg/mL (232-1245)
[2021-12-18 19:17] LABS: Zinc Level, Serum or Plasma 71 mcg/dL (60-130)
[2021-12-19 17:03] LABS: Vitamin B1(Thiamin) Plas/Ser 31 nmol/L (8-30)
[2021-12-20 14:57] LABS: Vit D 1,25 (Oh)2, Total 58 pg/mL (18-72); Vit D2 1,25 (Oh)2 <8 pg/mL; Vit D3 1,25 (Oh)2 58 pg/mL
== END 2021-12-14 12:06 | disposition home or self-care (01) ==
LOC: LAB 12:12
PROVIDERS: PCP Family Medicine; Visit Provider Surgery
DX: E88.81 Metabolic syndrome and other insulin resistance (principal)
CPT/HCPCS: 36415; 80053; 80061; 82310; 82607; 82652; 82728; 82746; 83036; 83540; 83550; 83735; 83970; 84425; 84443; 84630; 85025

== ENCOUNTER → 2021-12-21 10:41 | Outpatient (BNVA) | payer OTHER, MEDICAID, SELFPAY ==
[2021-11-28 11:19] VITALS: BP 119/76; BMI 37.4
== END ==
PROVIDERS: PCP Family Medicine; Visit Provider Surgery
DX: Z98.84 Bariatric surgery status (principal)
CPT/HCPCS: 99213

== ENCOUNTER → 2022-02-21 10:23 | Outpatient (BNVA) | payer MEDICARE, MEDICAID, OTHER, SELFPAY ==
[2021-11-28 11:19] VITALS: BP 119/76; BMI 37.4
== END ==
PROVIDERS: PCP Family Medicine; Visit Provider Family Medicine
DX: G25.81 Restless legs syndrome (principal); I10 Essential (primary) hypertension; Z68.38 Body mass index [BMI] 38.0-38.9, adult; F33.3 Major depressive disorder, recurrent, severe with psychotic symptoms; F41.1 Generalized anxiety disorder; F41.0 Panic disorder [episodic paroxysmal anxiety]; R74.8 Abnormal levels of other serum enzymes; Z78.0 Asymptomatic menopausal state; E11.9 Type 2 diabetes mellitus without complications; E87.6 Hypokalemia; Z13.820 Encounter for screening for osteoporosis; Z98.84 Bariatric surgery status
CPT/HCPCS: 80048

== ENCOUNTER 2022-02-22 10:32 | Outpatient (CLI) | payer MEDICARE, MEDICAID, SELFPAY ==
[2021-11-28 11:19] VITALS: BP 119/76; BMI 37.4
--- NOTE | 2022-02-22 10:30 | FL_ITS ---
WS: [id number] FL barium swallow modifd [id number] REASON FOR EXAM: Dysphagia FLUOROSCOPY TIME: 2min [id number] # OF SPOT FILMS: 1 FINDINGS: Sitting position. The cervical esophagus was evaluated fluoroscopically with video recording during t he swallowing of varying consistencies of barium. The examination was supervised by the speech therapy department. No aspiration was identified. Barium tablet which was ingested and noted to enter a small slightly dependent portion of the stomach created by gastric sleeve procedure. The appearance is the same as on the examination of 06/25/2021. The swallowing portion of the procedure will be analyzed and a detailed report rendered by the speech therapy department. FL/FL barium swallow modifd [id number] IMPRESSION: Modified barium swallow as above.
== END 2022-02-22 10:33 | disposition home or self-care (01) ==
LOC: RAD 10:36
PROVIDERS: PCP Family Medicine; Visit Provider Surgery
DX: Z98.84 Bariatric surgery status (principal); Z98.890 Other specified postprocedural states; R13.10 Dysphagia, unspecified
CPT/HCPCS: 74230; 92611

== ENCOUNTER 2022-02-28 11:30 | Outpatient (CLI) | payer MEDICARE, MEDICAID, SELFPAY ==
[2021-11-28 11:19] VITALS: BP 119/76; BMI 37.4
--- NOTE | 2022-02-28 13:00 | XR_ITS ---
WS: [id number] DEXA (DUAL ENERGY X-RAY ABSORPTIOMETRY) Bone mineral density was performed using a [employer] machine. HISTORY: Z78.0 - Asymptomatic menopausal state COMPARISON: 08/08/2018 Lumbar spine BMD (L1-L4): 0.964 g/cm2 T score: -1.8 Z score: -0.8 Total hip BMD: Left: 0.920 g/cm2. T score: -0.7 Z score: 0.1 Right: 0.897 g/cm2. T score: -0.9 Z score: -0.1 10 year probability of a major osteoporotic fracture is 13.6 percentile. Compared to the prior study from 08/08/2018. Lumbar spine bone mineral density has increased by 6.2%. Bilateral hips bone mineral density has increased by 5.7%. XR/XR DEXA axial skeleton* [id number] IMPRESSION: OSTEOPENIA based upon the WHO classification for females. Increase in bone mine ral density within both hips and lumbar spine since the prior study.
== END 2022-02-28 11:31 | disposition home or self-care (01) ==
LOC: RAD 11:31
PROVIDERS: PCP Family Medicine; Visit Provider Family Medicine
DX: Z13.820 Encounter for screening for osteoporosis (principal); Z78.0 Asymptomatic menopausal state; M85.80 Other specified disorders of bone density and structure, unspecified site
CPT/HCPCS: 77080

== ENCOUNTER → 2022-03-10 08:41 | Outpatient (BNVA) | payer MEDICARE, MEDICAID, SELFPAY ==
[2022-03-09 11:16] VITALS: BP 119/76; BMI 37.4
== END ==
PROVIDERS: PCP Family Medicine; Visit Provider Internal Medicine
DX: E03.8 Other specified hypothyroidism (principal); E06.3 Autoimmune thyroiditis; E04.1 Nontoxic single thyroid nodule; R13.10 Dysphagia, unspecified; Z79.890 Hormone replacement therapy
CPT/HCPCS: 99214

== ENCOUNTER 2022-04-13 10:43 | Outpatient (CLI) | payer MEDICARE, MEDICAID, SELFPAY ==
[2022-04-11 14:53] VITALS: BP 119/76; BMI 37.4
[2022-04-13 12:09] LABS: Estmated Average Glucose 97
[2022-04-13 12:24] LABS: Free T4 Free Thyroxine 1.17 ng/dL (0.82-1.77); Thyroid Stimulating Hormone 0.47 uIU/mL (0.27-4.20)
== END 2022-04-13 10:44 | disposition home or self-care (01) ==
LOC: LAB 10:45
PROVIDERS: PCP Family Medicine; Visit Provider Internal Medicine
DX: E03.8 Other specified hypothyroidism (principal); E06.3 Autoimmune thyroiditis; E11.9 Type 2 diabetes mellitus without complications
CPT/HCPCS: 36415; 83036; 84439; 84443

== ENCOUNTER → 2022-08-22 09:22 | Outpatient (BNVA) | payer MEDICARE, MEDICAID, SELFPAY ==
[2022-07-21 10:13] VITALS: BP 121/76; BMI 31.3
== END ==
PROVIDERS: PCP Family Medicine; Visit Provider Family Medicine
DX: G25.81 Restless legs syndrome (principal); Z98.84 Bariatric surgery status; Z68.38 Body mass index [BMI] 38.0-38.9, adult; F33.3 Major depressive disorder, recurrent, severe with psychotic symptoms; F41.1 Generalized anxiety disorder; F41.0 Panic disorder [episodic paroxysmal anxiety]; E66.01 Morbid (severe) obesity due to excess calories; I10 Essential (primary) hypertension; E04.1 Nontoxic single thyroid nodule; E11.9 Type 2 diabetes mellitus without complications; E87.6 Hypokalemia; Z68.32 Body mass index [BMI] 32.0-32.9, adult; S30.860A Insect bite (nonvenomous) of lower back and pelvis, initial encounter; W57.XXXA Bitten or stung by nonvenomous insect and other nonvenomous arthropods, initial encounter; B35.1 Tinea unguium
CPT/HCPCS: 80048; 83036; 84439; 84443; 84481

== ENCOUNTER → 2022-08-24 15:27 | Outpatient (BNVA) | payer MEDICARE, MEDICAID, SELFPAY ==
[2022-07-21 10:13] VITALS: BP 121/76; BMI 31.3
== END ==
PROVIDERS: PCP Family Medicine; Visit Provider Nurse Practitioner Family
DX: B35.1 Tinea unguium (principal); L57.8 Other skin changes due to chronic exposure to nonionizing radiation; L21.8 Other seborrheic dermatitis; L85.3 Xerosis cutis; D22.62 Melanocytic nevi of left upper limb, including shoulder; L81.4 Other melanin hyperpigmentation; Z12.83 Encounter for screening for malignant neoplasm of skin; Z85.828 Personal history of other malignant neoplasm of skin
CPT/HCPCS: 17000; 17003; 99214

== ENCOUNTER → 2022-09-07 08:52 | Outpatient (BNVA) | payer MEDICARE, MEDICAID, SELFPAY ==
[2022-09-06 13:51] VITALS: BP 121/76; BMI 31.3
== END ==
PROVIDERS: PCP Family Medicine; Visit Provider Internal Medicine
DX: E16.2 Hypoglycemia, unspecified (principal); E03.8 Other specified hypothyroidism; E06.3 Autoimmune thyroiditis; E04.1 Nontoxic single thyroid nodule; R13.10 Dysphagia, unspecified; Z79.890 Hormone replacement therapy; Z79.899 Other long term (current) drug therapy
CPT/HCPCS: 99214

== ENCOUNTER 2022-09-12 12:38 | Emergency (ER) | payer MEDICARE, MEDICAID, SELFPAY ==
[2022-09-06 13:51] VITALS: BP 121/76; BMI 31.3
[2022-09-12 13:15] VITALS: BP 125/80; PULSE 82; RESP 14; TEMP 36.9; O2SAT 96; BMI 30.1
== END 2022-09-12 14:44 | disposition left against medical advice (07) ==
LOC: ER 12:44
PROVIDERS: Emergency Provider Family Medicine; PCP Family Medicine
DX: Z53.21 Procedure and treatment not carried out due to patient leaving prior to being seen by health care provider (principal)
CPT/HCPCS: 81000; 87086

== ENCOUNTER 2022-09-19 08:28 | Outpatient (CLI) | payer MEDICARE, MEDICAID, SELFPAY ==
[2022-09-06 13:51] VITALS: BP 121/76; BMI 31.3
--- NOTE | 2022-09-19 09:00 | US_ITS ---
WS: [email or web address] ULTRASOUND THYROID TECHNIQUE: Ultrasound of the thyroid. CLINICAL INFORMATION: nodule COMPARISON: None. FINDINGS: Thyroid: Right and left thyroid lobes are normal in size and echotexture. Right thyroid lobe: 4.7 cm x 1.2 cm x 1.6 cm Left thyroid lobe: 2.8 cm x 1.3 cm x 1.4 cm Calcified shadowing left thyroid nodule measuring 9.5 x 5.9 x 7.9 mm Isthmus: 0.3 mm. Cervical lymphadenopathy: None. IMPRESSION: 1. Calcified shadowing left thyroid nodule measuring 9.5 x 5.9 x 7.9 mm. 2. No other visualized nodules 3. No changes since 12/08/20
[2022-09-19 09:49] LABS: Anion Gap 12.4 (5-19); Blood Urea Nitrogen 18 mg/dL (8-23); Calcium 9.1 mg/dL (8.5-10.5); Carbon Dioxide 29 mmol/L (22-29); Chloride 104 mmol/L (98-107); Glucose 84 mg/dL (65-115); Osmolality Calculated 293 mOsm/kg (285-295); Potassium 4.4 mmol/L (3.5-5.1); Sodium 141 mmol/L (136-145)
== END 2022-09-19 08:29 | disposition home or self-care (01) ==
PROVIDERS: PCP Family Medicine; Visit Provider Internal Medicine
DX: E03.8 Other specified hypothyroidism (principal); E04.1 Nontoxic single thyroid nodule; E06.3 Autoimmune thyroiditis
CPT/HCPCS: 36415; 76536; 80048

== ENCOUNTER → 2022-09-21 12:47 | Outpatient (BNVA) | payer MEDICARE, MEDICAID, SELFPAY ==
[2022-09-06 13:51] VITALS: BP 121/76; BMI 31.3
== END ==
PROVIDERS: PCP Family Medicine; Visit Provider Internal Medicine
DX: E03.8 Other specified hypothyroidism (principal); E06.3 Autoimmune thyroiditis; E04.1 Nontoxic single thyroid nodule; E16.2 Hypoglycemia, unspecified; Z79.890 Hormone replacement therapy
CPT/HCPCS: 99214

== ENCOUNTER 2022-10-03 08:30 | Outpatient (CLI) | payer MEDICARE, MEDICAID, SELFPAY ==
[2022-09-06 13:51] VITALS: BP 121/76; BMI 31.3
--- NOTE | 2022-10-03 08:38 | MM_ITS ---
WS: [id number] BILATERAL 3D TOMOSYNTHESIS DIGITAL SCREENING MAMMOGRAPHY WITH CAD CLINICAL INFORMATION: SCREENING HISTORY: Screening mammogram. History of breast reduction COMPARISON: 2021 TECHNIQUE: Bilateral CC and MLO views. FINDINGS: Scattered fibroglandular densities bilaterally. No suspicious focal mass, asymmetry, calcifications, or architectural distortion. No evidence of malignancy. Incidental punctate and lucent centered calci fications. IMPRESSION: MM/[place] [id number] BI-RADS: 2-Benign FOLLOW UP: 1 Year Follow-up Recommend return to annual screening mammography.
== END 2022-10-03 08:31 | disposition home or self-care (01) ==
LOC: RAD 08:33 → MOBLMAM 08:37
PROVIDERS: PCP Family Medicine; Visit Provider Family Medicine
DX: Z12.31 Encounter for screening mammogram for malignant neoplasm of breast (principal)
CPT/HCPCS: 77063; 77067

== ENCOUNTER 2022-10-03 17:06 | Observation (INO) | payer MEDICARE, MEDICAID, SELFPAY ==
[2022-09-06 13:51] VITALS: BP 121/76; BMI 31.3
[2022-10-03] VITALS (17 sets, daily range): BP systolic 117–180; BP diastolic 97–119; PULSE 97–143; RESP 19–31; TEMP 36.7; O2SAT 92–98; BMI 30.1
--- NOTE | 2022-10-03 17:58 | ECG_ITS ---
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 Measurements Intervals [place] Rate: 139 P: 51 [place]: 150 QRS: 67 QRSD: 85 T: 44 QT: 306 QTc: 467 Interpretive Statements SINUS TACHYCARDIA NONSPECIFIC T-WAVE ABNORMALITY ABNORMAL RHYTHM ECG Compared to ECG 11/07/2019 16:27:58 T-wave abnormality now present Sinus rhythm no longer present Electronically Signed On 10-04-2022 20:00:13 CDT by Kiley Oakley M.D. [email or web address]/store/NU/[id number] f
[2022-10-03] MEDS: LORazepam 2 mg/mL INJ 1 mL 1 MG IVP ×2 (18:03→19:39)
[2022-10-03] MEDS: sodium chloride 0.9% 1,000 ML 999 ML IV ×2 (18:03→19:33)
--- NOTE | 2022-10-03 18:03 | W.ED.ANXIETY ---
HPI - Anxiety General: Chief Complaint: Anxiety Stated Complaint: Overdose Caff. Time Seen by Provider: 10/03/22 17:39 Source: patient Mode of arrival: ambulatory Limitations: no limitations History of Present Illness: 66-year-old female states that 3 PM today she had taken 3 caffeine tablets to give her some energy. She states she is taken 1 before but never 3 she states that she believes she is taking too much because over the last hour her heart has been racing she has been diaphoretic states she had some chest pain and feels extremely anxious. She is tachycardic here. She denies any shortness of breath denies any vomiting denies any diarrhea. Associated symptoms: Reports chest pain; Deny chills, fever(s), headache(s), nausea or vomiting Review of Systems Const: Denies: fever(s) or chills Eyes: Denies: blurry vision or eye discomfort ENMT: Denies: throat pain or dental pain Card: Reports: chest pain Resp: Denies: dyspnea GI: Denies: abdominal pain, nausea, vomiting or diarrhea : Denies: dysuria Musc: Denies: neck pain or back pain Skin/Breast: Denies: rash Neuro: Denies: headache(s) PFSH ED PFSH: Medical History Cerumen impaction Chronic post-traumatic stress disorder Delusional disorders vs Schizophrenia Depression, major, recurrent, 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, implants and grafts, initial encounter Generalized anxiety disorder with panic attacks History of nonmelanoma skin cancer 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 Psychiatric care Psychiatric care Restless leg syndrome Sjogrens syndrome Surgical History History of colonoscopy 2020 History of partial hysterectomy History of tonsillectomy and adenoidectomy Hx of bilateral breast reduction surgery Hx of cholecystectomy Status post hardware removal Family History Other Diabetes Hypertension Psychiatric illness Social History Smoking and tobacco status: never smoked Alcohol intake: never Substance/Drug Use: never Adopted: No Caregiver/support person: No Lives independently: Yes Household members: none Housing: Apartment Marital status: Marital status details: last in 2016 Number of children: 2 Number of grandchildren: 3 Highest education level completed: 12th Grade, No Diploma service: No Current occupational status: disabled Current occupational exposures/hazards: No Pets and animals: Yes Pets & animals: cat(s) Leisure activites: other Leisure activities details: watch tv,garden, play with cats Sexually active: No Do you think of yourself as: Straight/Heterosexual Current gender identity: Female 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 Special estefania needs: No Agree to transfusion: Yes Financial difficulty paying for basics: Not Very Hard Female Reproductive History: Para: 2 Spontaneous abortions: No Physical Exam Const: COMMON NORMALS: patient oriented x3 HENMT: COMMON NORMALS: normocephalic and atraumatic HEAD & SCALP: normocephalic and atraumatic Eye: COMMON NORMALS: Equal, round and reactive pupils present and EOMs intact bilaterally PUPIL: Yes Equal, round and reactive pupils present Neck/C-Spine: COMMON NORMALS: full ROM and supple Chest: COMMONS NORMALS: normal inspection of the chest and normal palpation of entire chest wall Resp: COMMON NORMALS: normal respiratory effort, No retractions, No use of accessory muscles and clear to auscultation bilaterally AUSCULTATION: clear to auscultation bilaterally Cardio: COMMON NORMALS: regular rhythm and No murmurs present (Cardio) RATE: tachycardic RHYTHM: regular rhythm GI: COMMON NORMALS: Normal to inspection, nondistended, normoactive bowel sounds present, Soft to palpation, non-tender and no masses PALPATION: Yes Soft to palpation Extremity: COMMON NORMALS: normal to inspection and full ROM Neuro: COMMON NORMALS: patient oriented x3, moves all extremities and no focal motor deficits Psych: COMMON NORMALS: mental status grossly normal, Normal thought process present and cooperative THOUGHT PROCESS: Normal thought process present Skin: COMMON NORMALS: no rashes or lesions noted and no wounds GENERAL SKIN EXAM: no rashes or lesions noted Course Vital Signs: Vital signs: Vital Signs Temperature 98.1 F 10/03/22 17:07 Pulse Rate 104 H 10/04/22 00:00 Respiratory Rate 27 H 10/04/22 00:00 Blood Pressure 165/120 10/04/22 00:00 Pulse Oximetry 93 10/04/22 00:00 Oxygen Delivery Me thod Room Air 10/03/22 20:12 MDM - Anxiety Medical Decision Making Patient presents here with possible NSTEMI. She has been having some diaphoresis tachycardia and chest pain she took 3 caffeine pills today. Her 2-hour and 6-hour troponin are mildly elevated she has no ST elevation on EKG Will start Lovenox I spoke to the hospitalist will admit at this time patient is currently chest pain-free at this time. Medical Records I reviewed the patient's medical records. Lab Data I reviewed the patient's lab results. 10/03/22 18:08 10/03/22 18:08 Radiology Impressions Chest X-Ray 10/03/22 18:35 IMPRESSION: No acute findings. Laboratory Results WBC 9.76 10^3/uL (3.29-11.43) 10/03/22 18:08 RBC 5.71 10^6/uL (3.85-5.65) H 10/03/22 18:08 Hgb 16.50 g/dL (11.27-16.99) 10/03/22 18:08 Hct 51.4 % (36-47) H 10/03/22 18:08 MCV 90.0 fl (85-98) 10/03/22 18:08 MCH 28.9 pg (27-33) 10/03/22 18:08 MCHC 32.1 g/dL (30-55) 10/03/22 18:08 RDW 12.4 % (12.1-15.1) 10/03/22 18:08 Plt Count 297 10^3/cmm (157-399) 10/03/22 18:08 MPV 10.2 fL (7.4-10.4) 10/03/22 18:08 Neut % (Auto) 79.9 % 10/03/22 18:08 Lymph % (Auto) 13.6 % 10/03/22 18:08 [place] % (Auto) 5.5 % 10/03/22 18:08 Eos % (Auto) 0.2 % 10/03/22 18:08 Baso % (Auto) 0.2 % 10/03/22 18:08 Neut # (Auto) 7.79 10^3/uL (1.8-7.7) H 10/03/22 18:08 Lymph # (Auto) 1.3 10^3/uL (0.8-4.8) 10/03/22 18:08 [place] # (Auto) 0.5 10^3/uL (0.2-0.9) 10/03/22 18:08 Eos # (Auto) 0.0 10^3/uL (0.0-0.8) 10/03/22 18:08 Baso # (Auto) 0.0 10^3/uL (0.0-0.1) 10/03/22 18:08 Nucleated RBC % (auto) 0 % 10/03/22 18:08 Nucleated RBCs # 0.0 /100WBC 10/03/22 18:08 D-Dimer 0.55 ug/mLFEU (0-0.59) 10/03/22 18:08 Sodium 146 mmol/L (136-145) H 10/03/22 18:08 Potassium 4.4 mmol/L (3.5-5.1) 10/03/22 18:08 Chloride 109 mmol/L (98-107) H 10/03/22 18:08 Carbon Dioxide 25 mmol/L (22-29) 10/03/22 18:08 Anion Gap 16.4 (5-19) 10/03/22 18:08 BUN 14 mg/dL (8-23) 10/03/22 18:08 Creatinine 0.8 mg/dL (0.5-0.9) 10/03/22 18:08 GFR Calculation 72.2 mL/min (90-130) L 10/03/22 18:08 Glucose 90 mg/dL (65-115) 10/03/22 18:08 Calculated Osmolality 302 mOsm/kg (285-295) H 10/03/22 18:08 Calcium 9.6 mg/dL (8.5-10.5) 10/03/22 18:08 Total Bilirubin 0.4 mg/dL (0.15-1.2) 10/03/22 18:08 AST 18 U/L (0-32) 10/03/22 18:08 ALT 21 U/L (0-33) 10/03/22 18:08 Alkaline Phosphatase 77 U/L (35-105) 10/03/22 18:08 Troponin T Baseline 14 ng/L (0-10) H 10/03/22 18:08 Troponin T 120 Minute 27.42 ng/L (0-10) H 10/03/22 20:32 Delta Troponin T 13.42 ABS# (0-10) H* 10/03/22 20:32 Troponin T Hi Sens 6Hr 33.05 ng/L (0-10) H 10/03/22 23:00 Troponin T Hi Sens 6Hr Delta 19.05 ng/L (0-12) H* 10/03/22 23:00 Total Protein 6.9 g/dL (6.6-8.7) 10/03/22 18:08 Albumin 4.7 g/dL (3.5-5.2) 10/03/22 18:08 Globulin 2.2 g/dL (1.3-4.6) 10/03/22 18:08 TSH 0.47 uIU/mL (0.27-4.20) 10/03/22 23:00 EKG Data EKG 1: I personally reviewed and interpreted this EKG as follows: EKG interpretation date: 10/03/22 EKG interpretation time: 17:53 Interpretation: Chest X-Ray 10/03/22 18:35 IMPRESSION: No acute findings. sinus tach hr [address] or t wave abnormalities qrs 85 qtc 387 Other EKG comments: Chest X-Ray 10/03/22 18:35 IMPRESSION: No acute findings. Discharge Plan Discharge Patient Disposition: Admitted As Inpatient Clinical Impression: Non-ST elevation [place] (NSTEMI) Condition: Stable Prescriptions: No Action clobetasol 0.05 % solution 1 applic topical DAILY Qty: 50 3RF Rx Instructions: To itchy areas on scalp as needed ciclopirox 0.77 % cream 1 applic topical BID Qty: 30 4RF Rx Instructions: to face prn levothyroxine 88 mcg tablet 88 mcg PO QAM 90 Days Qty: 90 3RF fluticasone propionate [Flonase Allergy Relief] 50 mcg/actuation spray,suspension 1 spray intranasal DAILY Qty: 16 0RF Rx Instructions: administer into each nostril fluphenazine HCl 1 mg tablet 1 mg PO .morning Qty: 90 2RF Rx Instructions: Take one tablet every morning venlafaxine 150 mg capsule,extended release 24hr 150 mg PO QAM Qty: 90 2RF Rx Instructions: Take one capsule in the morning trazodone 50 mg tablet 50 mg PO BEDTIME PRN (Reason: sleep) Qty: 30 3RF Rx Instructions: May take one tablet at bedtime as needed for sleep hydroxyzine pamoate [Vistaril] 25 mg capsule 25 mg PO BID PRN (Reason: anxiety) Qty: 60 3RF Rx Instructions: may take one capsule twice per day as needed for anxiety nitrofurantoin monohyd/m-cryst [Macrobid] 100 mg capsule 100 mg PO BID 5 Days Qty: 10 0RF Rx Instructions: must administer with a meal/food Bariatric Multivitamins 45 mg iron- 800 mcg-120 mcg capsule PO DAILY ropinirole 0.5 mg tablet 0.5 mg PO TID MDD 4 tabs 90 Days Qty: 270 1RF Rx Instructions: 340B 0.5 AM, 0.5 PM, 1 at bedtime Protonix 40 mg tablet,delayed release (DR/EC) 40 mg PO DAILY 90 Days Qty: 90 1RF bupropion HCl 200 mg tablet sustained-release 12 hr 200 mg PO BID MDD 2 tablets 90 Days Qty: 180 1RF lisinopril 10 mg tablet 10 mg PO DAILY 90 Days Qty: 90 1RF (DME) Blood Glucose Test Strip See Rx Instructions .Route Qty: 50 0RF Rx Instructions: As directed (DME) blood-glucose meter [ReliOn All-In-One Meter] Kit See Rx Instructions .Route Qty: 1 0RF Rx Instructions: As directed (DME) E-Z Ject Lancets 32 gauge misc See Rx Instructions .Route Qty: 100 0RF Rx Instructions: As directed (DME) FreeStyle Yefri 2 Sensor Kit See Rx Instructions .Route Qty: 6 0RF Rx Instructions: As directed (DME) FreeStyle Yefri 2 [place] Misc See Rx Instructions .ROUTE .MEDSUPPLY Qty: 1 0RF Rx Instructions: As directed ketoconazole 2 % shampoo 1 applic topical .2 x weekly Qty: 120 3RF Rx Instructions: Lather into scalp 2 times weekly. Allow to sit on scalp for 5 minutes before rinsing. 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
[2022-10-03 18:16] LABS: Basophils % 0.2 %; Eosinophils % 0.2 %; Hematocrit 51.4 % (36-47); Lymphocytes # 1.3 10^3/uL (0.8-4.8); Lymphocytes % 13.6 %; Mean Corpuscular HGB Conc 32.1 g/dL (30-55); Mean Corpuscular Hemoglobin 28.9 pg (27-33); Mean Platelet Volume 10.2 fL (7.4-10.4); Monocytes # 0.5 10^3/uL (0.2-0.9); Monocytes % 5.5 %; Neutrophils # 7.79 10^3/uL (1.8-7.7); Neutrophils % 79.9 %; Nucleated Red Blood Cells % 0 %; Platelet Count 297 10^3/cmm (157-399); Red Blood Count 5.71 10^6/uL (3.85-5.65); Red Cell Distribution Width 12.4 % (12.1-15.1); White Blood Count 9.76 10^3/uL (3.29-11.43)
[2022-10-03 18:34] LABS: Alanine Aminotransferase 21 U/L (0-33); Albumin Level 4.7 g/dL (3.5-5.2); Alkaline Phosphatase 77 U/L (35-105); Aspartate Amino Transferase 18 U/L (0-32); Blood Urea Nitrogen 14 mg/dL (8-23); Calcium 9.6 mg/dL (8.5-10.5); Carbon Dioxide 25 mmol/L (22-29); Chloride 109 mmol/L (98-107); Creatinine Clr Calc Pharmacy 69.8537; Globulin 2.2 g/dL (1.3-4.6); Glomerular Filtration Rate 72.2 mL/min (90-130); Glucose 90 mg/dL (65-115); Osmolality Calculated 302 mOsm/kg (285-295); Sodium 146 mmol/L (136-145); Total Bilirubin 0.4 mg/dL (0.15-1.2); Total Protein 6.9 g/dL (6.6-8.7)
--- NOTE | 2022-10-03 18:35 | XRR_ITS ---
PROCEDURE INFORMATION: Exam: XR Chest Exam date and time: 10/03/2022 6:40 PM Age: 66 years old Clinical indication: Pain; Chest pressure; Additional info: Cp TECHNIQUE: Imaging protocol: Radiologic exam of the chest. Views: 1 view. COMPARISON: CR XR chest 1V portable [id number] 11/07/2019 4:31 PM FINDINGS: Lungs: Unremarkable. No consolidation. Pleural spaces: Unremarkable. No pleural effusion. No pneumothorax. Heart/Mediastinum: Unremarkable. No cardiomegaly. Bones/joints: Unremarkable. XR/XR chest 1V portable [id number] IMPRESSION: No acute findings.
[2022-10-03 18:40] LABS: Anion Gap 16.4 (5-19); Potassium 4.4 mmol/L (3.5-5.1)
[2022-10-03 18:43] LABS: Troponin(5th) Baseline 14 ng/L (0-10)
--- NOTE | 2022-10-03 19:27 | PC.NURSE ---
PT AMBULATED TO BATHROOM WITH ASSISTANCE. STEADY GAIT, BUT MILD TREMORS IN ARMS NOTED
--- NOTE | 2022-10-03 20:38 | ECG_ITS ---
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 Measurements Intervals [place] Rate: 123 P: 50 [place]: 163 QRS: 60 QRSD: 87 T: 21 QT: 333 QTc: 477 Interpretive Statements SINUS TACHYCARDIA POSSIBLE INFERIOR MYOCARDIAL INFARCTION , PROBABLY OLD [30 ms Q WAVE IN II/aVF] ABNORMAL RHYTHM ECG Compared to ECG 10/03/2022 17:53:31 Myocardial infarct finding now present T-wave abnormality no longer present Electronically Signed On 10-04-2022 20:31:47 CDT by Kiley Oakley M.D. [id number]
[2022-10-03] MEDS: labetalol 5 mg/mL SDV 20mL 10 MG IVP (20:45)
[2022-10-03 21:13] LABS: Troponin 5 2HR 27.42 ng/L (0-10)
[2022-10-03 21:16] LABS: Troponin 5 2HR Delta 13.42 ABS# (0-10)
[2022-10-03] MEDS: LORazepam 1 mg Tablet PO (23:00)
[2022-10-03 23:49] LABS: Troponin 5 6HR 33.05 ng/L (0-10)
--- NOTE | 2022-10-03 23:58 | ECG_ITS ---
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 Measurements Intervals [place] Rate: 92 P: 53 [place]: 179 QRS: 61 QRSD: 79 T: 48 QT: 335 QTc: 415 Interpretive Statements SINUS RHYTHM MODERATE ST DEPRESSION [0.05+ mV ST DEPRESSION] Compared to ECG 10/03/2022 20:38:14 ST (T wave) deviation now present Sinus tachycardia no longer present Myocardial infarct finding no longer present Electronically Signed On 10-04-2022 20:32:58 CDT by Kiley Oakley M.D. [id number]
[2022-10-04] VITALS (14 sets, daily range): BP systolic 106–182; BP diastolic 70–120; PULSE 79–107; RESP 16–27; TEMP 36.6–36.7; O2SAT 93–97
[2022-10-04] LABS: Troponin 5 6HR Delta 19.05 ng/L (0-12)
--- NOTE | 2022-10-04 | ECG_ITS ---
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 Interpretive Statements NAME OF STUDY: LEXISCAN SESTAMIBI STRESS TEST INDICATION: NSTEMI PROCEDURE: At the baseline, the blood pressure was 130/84 mm Hg with a heart rate of 89 bpm. The electrocardiogram showed sinus rhythm, normal axis with normal St and T's. ??? The Lexiscan was infused over a period of 20 seconds. A total of 0.4 milligrams of Lexiscan was infused. The stress phase was continued for a total of 5 minutes. Heart rate at the end of the stress phase was 103 bpm with a blood pressure of 133/80 mm Hg. The EKG at the peak infusion revealed no significant changes. ??? Sestamibi was injected 20 seconds after the Lexiscan infusion. ??? Blood pressure at the end of the recovery phase was 135/79 mm Hg with a heart rate of 102 beats per minute. ??? CONCLUSION: 1. No significant EKG changes with the LexiScan infusion. 2. No LexiScan induced chest pain or cardiac arrhythmia. 3. Normal blood pressure and heart rate response. 4. Sestamibi/sestamibi perfusion scan pending; see separate report. Electronically Signed On 10-18-2022 16:38:17 CDT by Gela Hopkins M.D. [email or web address].[employer]/store/[id number]
[2022-10-04 00:15] LABS: Thyroid Stimulating Hormone 0.47 uIU/mL (0.27-4.20)
[2022-10-04 00:19] LABS: D Dimer 0.55 ug/mLFEU (0-0.59)
[2022-10-04] MEDS: labetalol 5 mg/mL SDV 20mL 10 MG IVP (00:21)
[2022-10-04] MEDS: aspirin 81 mg Chew Tablet 324 MG PO (00:21)
[2022-10-04] MEDS: enoxaparin 80 mg/0.8 mL Syringe SUBCUT ×2 (00:21→12:49)
[2022-10-04] MEDS: nitroglycerin 0.4 mg sublingual Tablet SUBLINGUAL (00:23)
--- NOTE | 2022-10-04 01:01 | PM.HP ---
Providers/Chief Complaint Primary Care Provider: Carmen Mauro MD Chief Complaint: Overdose Caff. History of Present Illness Pleasant 66-year-old lady with history of HTN, HLD, autoimmune condition, has been trying to work out to lose weight in preparation for a cruise which she is supposed be going on in a few months, to help her with that she has been taking caffeine tablets, today instead of once she took 3, subsequently became lightheaded, diaphoretic, nauseated and vomited several times, very anxious, came in to ER with these complaints. They are noted to be very tachycardic, heart rates in 130s. Has been having some chest discomfort with inspiration. Persistent chest pain or pressure. Hypertensive on presentation. Tachycardic. Received bolus, 2 L, Ativan, labetalol, nitroglycerin, found with positive troponin at 2 and 6 hours although overall with mild elevation but with positive delta. Started on aspirin and Lovenox with concern for NSTEMI. Denies known history of CAD in herself or family. Never smoker. No prior cardiac work-up. Review of Systems Const: Denies: fever(s), chills, body aches or malaise ENMT: Denies: throat pain Card: Reports: palpitations and lightheadedness; Denies: chest pain, edema, pre-syncope or dyspnea on exertion Resp: Denies: dyspnea, productive cough, change in phlegm color or hemoptysis GI: Reports: nausea and vomiting; Denies: abdominal pain, diarrhea, constipation, hematochezia or melena : Denies: flank pain, urinary frequency or hematuria Musc: Denies: back pain, joint swelling or joint redness Skin/Breast: Denies: rash or new lesions Neuro: Reports: dizziness; Denies: headache(s), numbness in extremities, weakness in extremities, confusion or seizure-like activity Psych: Reports: anxiety Medications/Allergies Home Medications Medication Instructions Recorded Confirmed Last Taken Type ciclopirox 0.77 % topical cream 1 applic topical BID #30 grams 04/22/21 09/12/22 Unknown Rx clobetasol 0.05 % scalp solution 1 applic topical DAILY #50 mL 04/22/21 09/12/22 Unknown Rx tcruzvam-jufayosl-gmal 45 mg-folic cap PO DAILY 09/13/21 09/12/22 Unknown History acid 800 mcg-vit K 120 mcg capsule (Bariatric Multivitamins) ketoconazole 2 % shampoo 1 applic topical .2 x weekly #120 10/21/21 09/12/22 Unknown Rx mL fluticasone propionate 50 1 spray intranasal Q12H #15.8 mL 03/01/22 09/12/22 Unknown Rx mcg/actuation nasal spray,suspension levothyroxine 88 mcg tablet 88 mcg PO QAM 90 days #90 tabs 03/10/22 09/12/22 Unknown Rx fluticasone propionate 50 1 spray intranasal DAILY #16 grams 04/18/22 09/12/22 Unknown Rx mcg/actuation nasal spray,suspension (Flonase Allergy Relief) fluphenazine HCl 1 mg tablet 1 mg PO .morning #90 tabs 04/26/22 09/12/22 Unknown Rx hydroxyzine pamoate 25 mg capsule 25 mg PO BID PRN anxiety #60 caps 04/26/22 09/12/22 Unknown Rx (Vistaril) trazodone 50 mg tablet 50 mg PO BEDTIME PRN sleep #30 tabs 04/26/22 09/12/22 Unknown Rx venlafaxine 150 mg 150 mg PO QAM #90 caps 04/26/22 09/12/22 Unknown Rx capsule,extended release 24 hr bupropion HCl 200 mg tablet,12 hr 200 mg PO BID 90 days #180 tabs 08/22/22 09/12/22 Unknown Rx sustained-release lisinopril 10 mg tablet 10 mg PO DAILY 90 days #90 tabs 08/22/22 09/12/22 Unknown Rx pantoprazole 40 mg tablet,delayed 40 mg PO DAILY 90 days #90 tabs 08/22/22 09/12/22 Unknown Rx release (Protonix) ropinirole 0.5 mg tablet 0.5 mg PO TID 90 days #270 tabs 08/22/22 09/12/22 Unknown Rx nitrofurantoin 100 mg PO BID 5 days #10 caps 09/12/22 09/12/22 Unknown Rx monohydrate/macrocrystals 100 mg capsule (Macrobid) semaglutide 0.25 mg or 0.5 mg (2 0.5 mg (0.4 mL) SUBCUT .WEEKLY 28 09/16/22 Unknown Rx mg/1.5 mL) subcutaneous pen days #1.5 mL injector (Ozempic) blood sugar diagnostic (Blood #50 ea 09/21/22 09/21/22 Unknown Rx Glucose Test strips) blood-glucose meter (ReliOn #1 ea 09/21/22 09/21/22 Unknown Rx All-In-One Meter kit) flash glucose scanning reader #1 ea 09/21/22 09/21/22 Unknown Rx (FreeStyle Yefri 2 Winterset) flash glucose sensor (FreeStyle #6 ea 09/21/22 09/21/22 Unknown Rx Yefri 2 Sensor kit) lancets 32 gauge (E-Z Ject Lancets) #100 ea 09/21/22 09/21/22 Unknown Rx Allergies Allergy/AdvReac Type Severity Reaction Status Date / Time poison leslie extract Allergy Unknown rash Verified 10/03/22 17:11 poison sumac extract Allergy rash Verified 10/03/22 17:11 haloperidol [From Haldol] AdvReac Unknown Unknown Verified 10/03/22 17:11 PFSH Acute PFSH: Medical History (Updated 10/04/22 @ 01:21 by Jose Gordon MD) Cerumen impaction Chronic post-traumatic stress disorder Delusional disorders vs Schizophrenia Depression, major, recurrent, 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, implants and grafts, initial encounter Generalized anxiety disorder with panic attacks History of nonmelanoma skin cancer 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 Psychiatric care Psychiatric care Restless leg syndrome Sjogrens syndrome Surgical History (Updated 10/04/22 @ 01:21 by Jose Gordon MD) History of colonoscopy 2020 History of gastric surgery History of partial hysterectomy History of tonsillectomy and adenoidectomy Hx of bilateral breast reduction surgery Hx of cholecystectomy Status post hardware removal Family History Other Diabetes Hypertension Psychiatric illness Social History Smoking and tobacco status: never smoked Alcohol intake: never Substance/Drug Use: never Adopted: No Caregiver/support person: No Lives independently: Yes Household members: none Housing: Apartment Marital status: Marital status details: last in 2015 Number of children: 2 Number of grandchildren: 3 Highest education level completed: 12th Grade, No Diploma service: No Current occupational status: disabled Current occupational exposures/hazards: No Pets and animals: Yes Pets & animals: cat(s) Leisure activites: other Leisure activities details: watch tv,garden, play with cats Sexually active: No Do you think of yourself as: Straight/Heterosexual Current gender identity: Female Estefania/J[employer]ah[employer] Witness: [employer] Special estefania needs: No Agree to transfusion: Yes Financial difficulty paying for basics: Not Very Hard Female Reproductive History: Para: 2 Spontaneous abortions: No Vitals/I&O/Wt Last Vital Signs Temp 98.1 F 10/03/22 17:07 Pulse 104 H 10/04/22 00:00 Resp 16 10/04/22 00:38 BP 117/79 10/04/22 00:40 Pulse Ox 94 10/04/22 00:37 O2 Del Method Room Air 10/04/22 00:37 10/03/22 10/03/22 10/04/22 14:59 22:59 06:59 Intake Total 1999 Balance 1999 Weight last 48 hrs Weight 77.111 kg Physical Exam Const: COMMON NORMALS: patient oriented x3 and alert GENERAL APPEARANCE: cooperative ORIENTATION/CONSCIOUSNESS: Yes awake HENMT: COMMON NORMALS: oropharynx normal Neck/C-Spine: COMMON NORMALS: no JVD Resp: COMMON NORMALS: normal respiratory effort and clear to auscultation bilaterally AUSCULTATION: clear to auscultation bilaterally Cardio: COMMON NORMALS: no JVD, regular rhythm, S1 normal heart sound present, S2 normal heart sound present and No murmurs present (Cardio) RHYTHM: regular rhythm HEART SOUNDS: S1 normal heart sound present and S2 normal heart sound present GI: COMMON NORMALS: Normal to inspection, nondistended, normoactive bowel sounds present, Soft to palpation and non-tender PALPATION: Yes Soft to palpation Extremity: COMMON NORMALS: no joint enlargement and no pedal edema Neuro: COMMON NORMALS: patient oriented x3 and moves all extremities SENSORIUM/ORIENTATION: Yes alert Skin: COMMON NORMALS: no rashes or lesions noted GENERAL SKIN EXAM: no rashes or lesions noted Data 10/03/22 18:08 10/03/22 18:08 A&P Assessment and plan (1) Non-ST elevation FL (NSTEMI): Possible acute FL. Elevation of troponin but with positive delta, rising troponin of 14 baseline up to 33.05. I do not see obvious acute FL changes on my review of EKG. No prior cardiac history but does have risk factors of CAD. Discussed with her possibility of NSTEMI, otherwise plan simply demand ischemia secondary to tachycardia following caffeine tablets. Discussed with ER physician. ER documentation reviewed. Some pleuritic discomfort, possibly following vomiting, no persistent Chest Pain or Pressure. Will additionally assessed by TTE. Would benefit from stress test, however, did take caffeine just before 3 PM yesterday. We will need to delay stress test for at least 24 hours afterward. Stress test possibly tomorrow evening if not may have to be Sunday morning. Discussed with her and she will update us in case of any persistent chest pain or pressure or other concerning symptoms. At lower risk of life-threatening decompensation with NSTEMI, reperfusion injury, risk of threatening arrhythmia, monitor on telemetry. D-dimer checked and with low probability of PE. Start aspirin daily. Therapeutic dose Lovenox for now. Hemoglobin with therapeutic anticoagulation, risk of bleeding. Metoprolol. Start statin. Check lipid profile. (2) Hypernatremia: Possibly some mild dehydration with vomiting, caffeine tablets, exercise. Received fluid challenge. Reassess chemistry. (3) Sinus tachycardia: Suspected secondary to caffeine tablets. Low risk of PE. D-dimer unremarkable. Otherwise afebrile, no leukocytosis, no suggestion of infection or symptoms. Chest x-ray unremarkable. TSH noted WNL Plan HTN: Monitor blood pressures. Metoprolol. Resume antihypertensives once medication list available. Sjogren's syndrome History of psychiatric conditions Hypothyroidism: Resume levothyroxine once medications listed Requested to list medications, please reconcile once available. Attestations Medical Necessity Statement*: Place in observation for further assessment and management of NSTEMI Diagnoses Non-ST elevation FL (NSTEMI) I21.4 Hypernatremia E87.0 Sinus tachycardia R00.0
--- NOTE | 2022-10-04 01:04 | USCV_ITS ---
Anette Velasquez Age: 66 Gender: F : 1955 Exam Date: 10/04/2022 01:49 Ordering Phys: Jose Gordon MD Technologist: [place] [facility] [place]: cp BP: 119 / 80 HR: 85 Rhythm: Sinus Technical Quality: Adequate MEASUREMENTS (Male / Female) Normal Values 2D ECHO LV Chamber Size 3.8 cm RV Chamber Size 3.2 cm LVOT Diameter 1.5 cm LV Ejection Fraction MOD 2C 44.3 % LV Ejection Fraction 2C AL 44.6 % LA Diameter 3.6 cm LA Width 3.3 cm LA Height 3.9 cm RA Width 2.8 cm RA Height 3.6 cm Aorta at Sinotubular Diameter 2.3 cm IVC Diameter 1.5 cm M-MODE Aortic Annulus Diameter 3.0 cm LA Ao Ratio MM 1.4 MV E Point Septal Separation 0.4 cm DOPPLER AV Peak Velocity 120.0 cm/s LVOT Peak Velocity 88.0 cm/s AV Area Cont Eq vti 1.4 cm squared AV Area Cont Eq pk 1.3 cm squared MV Peak Velocity 95.0 cm/s MV Area PHT 4.5 cm squared Mitral E to A Ratio 0.9 MV E' Velocity 42.0 cm/s Mitral E to MV E' Ratio 7.8 Mitral E to LV E' Lateral Ratio 7.4 Mitral E to LV E' Septal Ratio 8.3 TR Peak Velocity 90.5 cm/s TR Peak Gradient 3.3 mmHg TV Peak E Velocity 74.0 cm/s Right Atrial Pressure 3.0 mmHg Pulmonary Artery Systolic Pressu 6.3 mmHg PV Peak Velocity 95.0 cm/s FINDINGS Left Ventricle Normal left ventricular size and systolic function, EF 65% (visual). No regional wall motion abnormalities. Grade I/IV diastolic dysfunction (abnormal relaxation filling pattern), normal to mildly elevated filling pressures. Mild left ventricular hypertrophy. Right Ventricle The right ventricle is normal in size and function. Right Atrium The right atrium is normal in size. Left Atrium The left atrium is normal in size. Mitral Valve No gross abnormalities noted. Aortic Valve No gross abnormalities noted. Tricuspid Valve No gross abnormalities noted. Pulmonic Valve Thickened pulmonic valve. Pericardium Normal pericardium without effusion. Aorta Normal ascending aorta dimension. IVC The inferior vena cava appears normal. CONCLUSIONS Normal left ventricular size and systolic function, EF 65% (visual). No regional wall motion abnormalities. Grade I/IV diastolic dysfunction (abnormal relaxation filling pattern), normal to mildly elevated filling pressures. Mild left ventricular hypertrophy. Normal cardiac chamber sizes. No gross valvular abnormalities. There is no pericardial effusion. There are no intracardiac masses. No similar previous studies are available for comparison Dr Kiley Oakley MD [facility] (Electronically Signed) Final Date: 04 October 2022 16:41 S
--- NOTE | 2022-10-04 02:56 | NMCV_ITS ---
NM edwige perf SPECT r/s* [id number] Anette Velasquez Age: 66 Gender: F : 1955 Exam Date: 10/04/2022 06:49 Ordering Phys: Jose Gordon MD Technologist: LATA Gerardo Exam Location: [facility] Indications: CHEST PAIN STRESS TEST Please see separate stress test report in [facility] for full findings IMAGE PROTOCOL Rest/Stress 1 Lexiscan Day Radiopharmaceutical Dose (mCi) Administration Site Administered by Rest: Tc-99m 10.6 IV LATA Schaeffer Sestamibi Stress:Tc-99m 32.5 IV LATA Schaeffer Sestamibi Rest: 04-Oct-2022 60 Discovery 630 Stress: 04-Oct-2022 30 Discovery 630 0.4mg Lexiscan. Images obtained in supine and prone position. SPECT RESULTS Technical Quality: Excellent Raw Data Analysis: Normal Image Corrections: No attenuation or motion correction applied Summed Stress Score: 0 Summed Rest Score: 1 Summed Difference Score: 0 PERFUSION FINDINGS A small area of slightly decreased tracer uptake was noted in the apical lateral region with no significant reversibility. FUNCTIONAL RESULTS (calculated via Gated SPECT) Stress Image LV EF (%): 89 Stress EDV (mL):45 TID: 0.95 Stress ESV (mL):5 FUNCTIONAL FINDINGS: LV wall motion analysis revealing no gross wall motion abnormalities. IMPRESSIONS 1. Unremarkable Myocardial perfusion imaging 2. Normal LV ejection fraction of 89%. 3. LV wall motion analysis revealing no gross wall motion abnormalities. 4. Normal LV volume Low probability for coronary ischemia, based on the above findings No similar previous studies are available for comparison Dr Kiley Okaley MD [facility] (Electronically Signed) Final Date: 04 October 2022 13:45 S
[2022-10-04 06:01] LABS: Basophils % 0.2 %; Eosinophils % 0.4 %; Hematocrit 46.5 % (36-47); Lymphocytes # 2.3 10^3/uL (0.8-4.8); Lymphocytes % 26.4 %; Mean Corpuscular Volume 90.6 fl (85-98); Mean Platelet Volume 10.4 fL (7.4-10.4); Monocytes # 0.9 10^3/uL (0.2-0.9); Monocytes % 9.9 %; Neutrophils # 5.37 10^3/uL (1.8-7.7); Neutrophils % 62.7 %; Nucleated Red Blood Cells % 0 %; Platelet Count 254 10^3/cmm (157-399); Red Blood Count 5.13 10^6/uL (3.85-5.65); Red Cell Distribution Width 12.7 % (12.1-15.1); White Blood Count 8.56 10^3/uL (3.29-11.43)
[2022-10-04 06:27] LABS: Anion Gap 11.5 (5-19); Blood Urea Nitrogen 10 mg/dL (8-23); Carbon Dioxide 30 mmol/L (22-29); Chloride 106 mmol/L (98-107); Creatinine Clr Calc Pharmacy 69.8537; Glomerular Filtration Rate 72.2 mL/min (90-130); Glucose 92 mg/dL (65-115); Osmolality Calculated 297 mOsm/kg (285-295); Potassium 3.5 mmol/L (3.5-5.1); Sodium 144 mmol/L (136-145)
[2022-10-04 06:38] LABS: Chol HDL Ratio 2.81 mg/dL (0.0-4.40); Cholesterol 191 mg/dL (0-200); HDL Cholesterol 68 mg/dL (60-100); LDL Cholesterol Calculated 100 mg/dL (50-129); LDL HDL Ratio 1.47 RATIO (0.00-3.22); Triglycerides 113 mg/dL (0-150)
[2022-10-04] MEDS: regadenoson 0.4 Mg/5 ml Syringe IVP (07:11)
[2022-10-04] MEDS: ropinirole 0.25 mg Tablet 0.5 MG PO ×2 (08:25→12:49)
[2022-10-04] MEDS: venlafaxine ER (24HR) 150 mg Capsule PO (08:26)
[2022-10-04] MEDS: levothyroxine 88 mcg Tablet PO (08:26)
[2022-10-04] MEDS: pantoprazole DR 40 mg Tablet PO ×2 (08:27→10:32)
[2022-10-04] MEDS: aspirin 325 mg EC Tablet PO (08:27)
[2022-10-04] MEDS: buPROPion SR (12 HR) 100 mg Tablet 200 MG PO (10:32)
--- NOTE | 2022-10-04 12:15 | PC.NURSE ---
Medications disposal. extreme energy supplements brought in by patient disposed of per patient request in the been in outpatient pharmacy on campus spoke with patient to obtain confirmation that meds were to be disposed of patient stated yes please get rid of them i never want to see them again
--- NOTE | 2022-10-04 15:11 | PM.DCS ---
Discharge Providers Date of Admission: 10/04/22 02:16 Date of Discharge: October 04, 2022 Attending Provider at Admission: Jose Gordon Attending Provider at Discharge: Dom Arvizu MD Primary Care Provider: Carmen Mauro MD Diagnoses at Discharge Discharge Diagnosis (1) Non-ST elevation MA (NSTEMI): Status: Acute (2) Hypernatremia: Status: Acute (3) Sinus tachycardia: Status: Acute Reason for Visit Reason for Visit: Overdose Caff. Hospital Course Hospital Course Pleasant 66-year-old lady with history of HTN, HLD, autoimmune condition, has been trying to work out to lose weight in preparation for a cruise which she is supposed be going on in a few months, to help her with that she has been taking caffeine tablets, today instead of once she took 3, subsequently became lightheaded, diaphoretic, nauseated and vomited several times, very anxious, came in to ER with these complaints.? They are noted to be very tachycardic, heart rates in 130s.? Has been having some chest discomfort with inspiration.? Persistent chest pain or pressure.? Hypertensive on presentation.? Tachycardic.? Received bolus, 2 L, Ativan, labetalol, nitroglycerin, found with positive troponin at 2 and 6 hours although overall with mild elevation but with positive delta.? Started on aspirin and Lovenox with concern for NSTEMI. Denies known history of CAD in herself or family.? Never smoker.? No prior cardiac work-up. Patient was admitted to [facility] for chest discomfort, NSTEMI, tachycardia, had serial EKGs, serial troponins, had a positive delta troponin, troponin size 33, EKG showed minimal ST-T wave depressions, underwent stress testing, low probability stress test, remained chest pain-free, discharged on aspirin, statin, beta-anh with close follow-up with primary care provider as outpatient. Patient was advised that if she were to have any recurrent chest pain to go to emergency room. Event monitor was vita, Dr. Valdes will follow-up in a month. Patient was advised that she should not use any supplements, no caffeine pills use, no caffeine use, if she should have any recurrent symptomatology to go to the emergency room. Physical Exam Const: COMMON NORMALS: no acute distress and patient oriented x3 Resp: COMMON NORMALS: normal respiratory effort, No retractions, No use of accessory muscles and clear to auscultation bilaterally AUSCULTATION: clear to auscultation bilaterally Cardio: COMMON NORMALS: regular rate, regular rhythm, S1 normal heart sound present and S2 normal heart sound present RATE: regular rate RHYTHM: regular rhythm HEART SOUNDS: S1 normal heart sound present and S2 normal heart sound present GI: COMMON NORMALS: Normal to inspection, nondistended, normoactive bowel sounds present and non-tender Extremity: COMMON NORMALS: no pedal edema Neuro: COMMON NORMALS: patient oriented x3 Psych: COMMON NORMALS: mental status grossly normal Discharge Data Studies Completed and Pending Completed Studies During Hospitalization Category Date Time Status CXRP [XR chest 1V portable [id number]] Stat Exams 10/03/22 18:35 Completed Cardiac Stress Test MIBI [Sestamibi Stress Test Request Exams 10/04/22 17:00 Draft ] DIRECTED NM edwige perf SPECT r/s* [id number] Routine Nuc Med 10/04/22 02:56 Completed Pending at discharge Category Date Time Status Cardiac Stress Test MIBI [Sestamibi Stress Test Request Exams 10/04/22 10:40 Ordered ] DIRECTED Cardiac Stress Test MIBI [Sestamibi Stress Test Request Exams 10/05/22 17:00 Stop Req ] DIRECTED Basic Metabolic Panel AM LABS Lab 10/05/22 04:00 Ordered Basic Metabolic Panel AM LABS Lab 10/06/22 04:00 Ordered Basic Metabolic Panel AM LABS Lab 10/07/22 04:00 Ordered Complete Blood Count w/Auto AM LABS Lab 10/05/22 04:00 Ordered Complete Blood Count w/Auto AM LABS Lab 10/06/22 04:00 Ordered Complete Blood Count w/Auto AM LABS Lab 10/07/22 04:00 Ordered CV. echo complete* [id number] Stat Ultrasound 10/04/22 01:04 Taken Radiology Impressions Chest X-Ray 10/03/22 18:35 IMPRESSION: No acute findings. Laboratory Results WBC 8.56 10^3/uL (3.29-11.43) 10/04/22 05:26 RBC 5.13 10^6/uL (3.85-5.65) 10/04/22 05:26 Hgb 14.90 g/dL (11.27-16.99) 10/04/22 05:26 Hct 46.5 % (36-47) 10/04/22 05:26 MCV 90.6 fl (85-98) 10/04/22 05:26 MCH 29.0 pg (27-33) 10/04/22 05:26 MCHC 32.0 g/dL (30-55) 10/04/22 05:26 RDW 12.7 % (12.1-15.1) 10/04/22 05:26 Plt Count 254 10^3/cmm (157-399) 10/04/22 05:26 MPV 10.4 fL (7.4-10.4) 10/04/22 05:26 Neut % (Auto) 62.7 % 10/04/22 05:26 Lymph % (Auto) 26.4 % 10/04/22 05:26 Carson % (Auto) 9.9 % 10/04/22 05:26 Eos % (Auto) 0.4 % 10/04/22 05:26 Baso % (Auto) 0.2 % 10/04/22 05:26 Neut # (Auto) 5.37 10^3/uL (1.8-7.7) 10/04/22 05:26 Lymph # (Auto) 2.3 10^3/uL (0.8-4.8) 10/04/22 05:26 Carson # (Auto) 0.9 10^3/uL (0.2-0.9) 10/04/22 05:26 Eos # (Auto) 0.0 10^3/uL (0.0-0.8) 10/04/22 05:26 Baso # (Auto) 0.0 10^3/uL (0.0-0.1) 10/04/22 05:26 Nucleated RBC % (auto) 0 % 10/04/22 05:26 Nucleated RBCs # 0.0 /100WBC 10/04/22 05:26 D-Dimer 0.55 ug/mLFEU (0-0.59) 10/03/22 18:08 Sodium 144 mmol/L (136-145) 10/04/22 05:26 Potassium 3.5 mmol/L (3.5-5.1) 10/04/22 05:26 Chloride 106 mmol/L (98-107) 10/04/22 05:26 Carbon Dioxide 30 mmol/L (22-29) H 10/04/22 05:26 Anion Gap 11.5 (5-19) 10/04/22 05:26 BUN 10 mg/dL (8-23) 10/04/22 05:26 Creatinine 0.8 mg/dL (0.5-0.9) 10/04/22 05:26 GFR Calculation 72.2 mL/min (90-130) L 10/04/22 05:26 Glucose 92 mg/dL (65-115) 10/04/22 05:26 Calculated Osmolality 297 mOsm/kg (285-295) H 10/04/22 05:26 Calcium 9.0 mg/dL (8.5-10.5) 10/04/22 05:26 Total Bilirubin 0.4 mg/dL (0.15-1.2) 10/03/22 18:08 AST 18 U/L (0-32) 10/03/22 18:08 ALT 21 U/L (0-33) 10/03/22 18:08 Alkaline Phosphatase 77 U/L (35-105) 10/03/22 18:08 Troponin T Baseline 14 ng/L (0-10) H 10/03/22 18:08 Troponin T 120 Minute 27.42 ng/L (0-10) H 10/03/22 20:32 Delta Troponin T 13.42 ABS# (0-10) H* 10/03/22 20:32 Troponin T Hi Sens 6Hr 33.05 ng/L (0-10) H 10/03/22 23:00 Troponin T Hi Sens 6Hr Delta 19.05 ng/L (0-12) H* 10/03/22 23:00 Total Protein 6.9 g/dL (6.6-8.7) 10/03/22 18:08 Albumin 4.7 g/dL (3.5-5.2) 10/03/22 18:08 Globulin 2.2 g/dL (1.3-4.6) 10/03/22 18:08 Triglycerides 113 mg/dL (0-150) 10/04/22 05:26 Cholesterol 191 mg/dL (0-200) 10/04/22 05:26 LDL Cholesterol, Calc 100 mg/dL (50-129) 10/04/22 05:26 HDL Cholesterol 68 mg/dL (60-100) 10/04/22 05:26 LDL/HDL Ratio 1.47 RATIO (0.00-3.22) 10/04/22 05:26 Cholesterol/HDL Ratio 2.81 mg/dL (0.0-4.40) 10/04/22 05:26 TSH 0.47 uIU/mL (0.27-4.20) 10/03/22 23:00 Vitals Last Vital Signs Temp 97.8 F 10/04/22 12:00 Pulse 87 10/04/22 14:00 Resp 20 H 10/04/22 12:00 BP 106/70 10/04/22 12:00 Pulse Ox 95 10/04/22 12:00 O2 Del Method Room Air 10/04/22 12:00 Discharge Plan Discharge Patient Disposition: Home Condition: Stable Prescriptions: New nitroglycerin 0.4 mg Tablet, Sublingual 0.4 mg sublingual Q5M PRN (Reason: Chest Pain) 30 Days Qty: 30 0RF metoprolol tartrate 25 mg Tablet 12.5 mg PO BID@0900,2100 30 Days Qty: 30 0RF aspirin 81 mg Tablet,Delayed Release (Dr/Ec) 81 mg PO DAILY 30 Days Qty: 30 0RF Continued clobetasol 0.05 % solution 1 applic topical DAILY Qty: 50 3RF Rx Instructions: To itchy areas on scalp as needed ciclopirox 0.77 % cream 1 applic topical BID Qty: 30 4RF Rx Instructions: to face prn levothyroxine 88 mcg tablet 88 mcg PO QAM 90 Days Qty: 90 3RF fluphenazine HCl 1 mg tablet 1 mg PO .morning Qty: 90 2RF Rx Instructions: Take one tablet every morning venlafaxine 150 mg capsule,extended release 24hr 150 mg PO QAM Qty: 90 2RF Rx Instructions: Take one capsule in the morning trazodone 50 mg tablet 50 mg PO BEDTIME PRN (Reason: sleep) Qty: 30 3RF Rx Instructions: May take one tablet at bedtime as needed for sleep hydroxyzine pamoate [Vistaril] 25 mg capsule 25 mg PO BID PRN (Reason: anxiety) Qty: 60 3RF Rx Instructions: may take one capsule twice per day as needed for anxiety Bariatric Multivitamins 45 mg iron- 800 mcg-120 mcg capsule 1 cap PO DAILY Protonix 40 mg tablet,delayed release (DR/EC) 40 mg PO DAILY 90 Days Qty: 90 1RF bupropion HCl 200 mg tablet sustained-release 12 hr 200 mg PO BID MDD 2 tablets 90 Days Qty: 180 1RF lisinopril 10 mg tablet 10 mg PO DAILY 90 Days Qty: 90 1RF (DME) Blood Glucose Test Strip See Rx Instructions .Route Qty: 50 0RF Rx Instructions: As directed (DME) blood-glucose meter [ReliOn All-In-One Meter] Kit See Rx Instructions .Route Qty: 1 0RF Rx Instructions: As directed (DME) E-Z Ject Lancets 32 gauge misc See Rx Instructions .Route Qty: 100 0RF Rx Instructions: As directed (DME) FreeStyle Yefri 2 Sensor Kit See Rx Instructions .Route Qty: 6 0RF Rx Instructions: As directed (DME) FreeStyle Yefri 2 [place] Misc See Rx Instructions .ROUTE .MEDSUPPLY Qty: 1 0RF Rx Instructions: As directed ketoconazole 2 % shampoo 1 applic topical .2 x weekly Qty: 120 3RF Rx Instructions: Lather into scalp 2 times weekly. Allow to sit on scalp for 5 minutes before rinsing. fluticasone propionate 50 mcg/actuation spray,suspension 1 spray intranasal Q12H Qty: 15.8 5RF Rx Instructions: administer into each nostril ropinirole 0.5 mg tablet 0.5 mg PO QID MDD 4 tabs Rx Instructions: 340B 0.5 AM, 0.5 PM, 1 at bedtime Discharge Orders: Discharge Order (Routine); Ordered 10/04/22 Ordered By: Dom Arvizu Other Ambulatory Orders: MCT/Event Monitor 30 Days (Routine) Timeframe: 1 Day Facility: [facility] - Location: Radiology Ordered By: Dom Arvizu Referrals: Alan Valdes M.D [Physician] - 2 weeks Carmen Mauro MD [Primary Care Provider] - Discharge Diet: Cardiac Discharge Activity: Resume usual activity Patient Instructions: Chest Pain (DC), Opioid Safety Activity Restrictions/Additional Instructions: - If any recurrent chest pain please go to emergency room -Please stop taking any supplements, including caffeine pills -please avoid all caffeine intake -Please follow cardiology in 2 weeks -Event monitor ordered Discharge Attestations Time Spent in Discharge Care*: greater than 30 min Status at Discharge: Cognitive status at discharge: cognitively intact, Behavioral status at discharge: cooperative, Quality Metrics Clinical Quality Measures [ No reported AMI, CVA or VTE this stay] Coding Level of Care Code 67993 Total time (in minutes) for Discharge: 45 Diagnoses Non-ST elevation MA (NSTEMI) I21.4 Hypernatremia E87.0 Sinus tachycardia R00.0
== END 2022-10-04 16:05 | disposition home or self-care (01) ==
LOC: ER 10-04 00:23 → CSU 10-04 02:16
PROVIDERS: Admitting Provider Internal Medicine; Emergency Provider Emergency Medicine; PCP Family Medicine; Visit Provider Family Medicine
DX: I21.4 Non-ST elevation (NSTEMI) myocardial infarction (principal); E87.0 Hyperosmolality and hypernatremia; R00.0 Tachycardia, unspecified; I10 Essential (primary) hypertension; E78.5 Hyperlipidemia, unspecified
CPT/HCPCS: 36415; 71045; 78452; 80048; 80053; 80061; 84443; 84484; 85025; 85378; 93005; 93017; 93306; 96361; 96372; 96374; 96375; 96376; 99285; A9500; G0378; J1650; J2060; J2785; J3490; J7030

== ENCOUNTER → 2022-10-14 17:20 | Outpatient (BNVA) | payer BC, MEDICAID, SELFPAY ==
[2022-10-11 07:51] VITALS: BP 121/76; BMI 31.3
== END ==
PROVIDERS: Visit Provider Nurse Practitioner Family
DX: R69 Illness, unspecified (principal); J30.2 Other seasonal allergic rhinitis
CPT/HCPCS: 87400; 87426

== ENCOUNTER → 2022-10-29 10:46 | Outpatient (BNVA) | payer BC, MEDICAID, SELFPAY ==
[2022-10-11 07:51] VITALS: BP 121/76; BMI 31.3
== END ==
PROVIDERS: Visit Provider Registered Nurse Neonatal Intensive Care
DX: J02.9 Acute pharyngitis, unspecified (principal); J06.9 Acute upper respiratory infection, unspecified
CPT/HCPCS: 87880

== ENCOUNTER → 2022-10-31 14:16 | Outpatient (BNVA) | payer MEDICARE, MEDICAID, SELFPAY ==
[2022-10-11 07:51] VITALS: BP 121/76; BMI 31.3
== END ==
PROVIDERS: PCP Family Medicine; Referring Provider Family Medicine; Visit Provider Internal Medicine
DX: R07.9 Chest pain, unspecified (principal); E11.9 Type 2 diabetes mellitus without complications; I10 Essential (primary) hypertension; Z09 Encounter for follow-up examination after completed treatment for conditions other than malignant neoplasm
CPT/HCPCS: 93005; 99204

== ENCOUNTER 2022-11-17 11:40 | Outpatient (CLI) | payer MEDICARE, MEDICAID, SELFPAY ==
[2022-10-11 07:51] VITALS: BP 121/76; BMI 31.3
[2022-11-17 13:00] LABS: Free T4 Free Thyroxine 1.76 ng/dL (0.82-1.77); Thyroid Stimulating Hormone 0.59 uIU/mL (0.27-4.20)
== END 2022-11-17 11:41 | disposition home or self-care (01) ==
LOC: LAB 11:44
PROVIDERS: PCP Family Medicine; Visit Provider Internal Medicine
DX: E03.8 Other specified hypothyroidism (principal); E04.1 Nontoxic single thyroid nodule; E06.3 Autoimmune thyroiditis; E16.2 Hypoglycemia, unspecified; R13.10 Dysphagia, unspecified
CPT/HCPCS: 36415; 84439; 84443

== ENCOUNTER 2022-11-18 03:59 | Emergency (ER) | payer MEDICARE, MEDICAID, SELFPAY ==
[2022-10-11 07:51] VITALS: BP 121/76; BMI 31.3
[2022-11-18 04:20] VITALS: BP 126/74; PULSE 70; RESP 18; TEMP 37; O2SAT 96; BMI 27.4
[2022-11-18 04:44] VITALS: BP 110/67; PULSE 66; RESP 18; O2SAT 95
--- NOTE | 2022-11-18 04:44 | XRR_ITS ---
PROCEDURE INFORMATION: Exam: XR Abdomen Exam date and time: 11/18/2022 4:47 AM Age: 67 years old Clinical indication: Prior surgery; Surgery date: 6+ months; Surgery type: Gastric sleeve. Gb. Hysterectomy; Patient HX: C/O constipation x 3 days; Additional info: Abd pain TECHNIQUE: Imaging protocol: Radiologic exam of the abdomen. Views: Frontal supine view of the abdomen. 1 View. COMPARISON: CR XR KUB portable [id number] 08/30/2018 8:48 PM FINDINGS: Gastrointestinal tract: Status post gastric sleeve procedure. Mild increased stool throughout the colon. Bones/joints: Unremarkable. XR/XR KUB portable [id number] IMPRESSION: Mild increased stool throughout the colon. Findings are likely related to constipation
[2022-11-18] MEDS: lactulose oral liq 20 gm/30 mL UDC 30 GM PO (05:25)
[2022-11-18] MEDS: mineral oil 30 mL UDC PO (05:26)
[2022-11-18] MEDS: magnesium hydroxide 30 mL UDC PO (05:26)
--- NOTE | 2022-11-18 05:28 | PC.NURSE ---
Pt sent home with Mag Citrate per Dr. Castro's order.
[2022-11-18 05:29] VITALS: BP 113/74; PULSE 68; RESP 16; O2SAT 98
--- NOTE | 2022-11-18 17:09 | W.ED.ABDPA2 ---
HPI - Abdominal Pain General: Chief Complaint: Nausea/Vomiting/Diarrhea Stated Complaint: Constipated Time Seen by Provider: 11/18/22 04:41 History of Present Illness: 67 year old female with a history of gastric sleeve surgery. And she presents with generalized belly pain, no bowel movement for several days, and a couple of episodes of vomiting today. No fever. No blood in the stool. No cough or respiratory symptoms. Associated Symptoms: Reports bloating, constipation, nausea and vomiting; Denies chills, fever(s), hematochezia, hematemesis and fecal incontinence Review of Systems Const: Denies: fever(s), chills or body aches ENMT: Denies: throat pain Card: Denies: chest pain or palpitations Resp: Denies: dyspnea, productive cough or non-productive cough GI: Reports: abdominal pain, nausea, vomiting, constipation and bloating; Denies: hematemesis, fecal incontinence or hematochezia : Denies: flank pain Skin/Breast: Denies: rash Neuro: Denies: headache(s) PFSH ED PFSH: Medical History Chronic post-traumatic stress disorder Delusional disorders vs Schizophrenia Depression, major, recurrent, 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, implants and grafts, initial encounter Generalized anxiety disorder with panic attacks History of nonmelanoma skin cancer 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 Psychiatric care Psychiatric care Restless leg syndrome Sjogrens syndrome Surgical History History of colonoscopy 2020 History of gastric surgery Gastric sleeve History of partial hysterectomy Due to fibroids History of tonsillectomy and adenoidectomy Hx of bilateral breast reduction surgery Hx of cholecystectomy Status post hardware removal From left wrist Family History Other Diabetes Hypertension Psychiatric illness Social History Smoking and tobacco status: never smoked Alcohol intake: never Substance/Drug Use: never Adopted: No Caregiver/support person: No Lives independently: Yes Household members: none Housing: Apartment Marital status: Marital status details: last in 2016 Number of children: 2 Number of grandchildren: 3 Highest education level completed: 12th Grade, No Diploma service: No Current occupational status: disabled Current occupational exposures/hazards: No Pets and animals: Yes Pets & animals: cat(s) Leisure activites: other Leisure activities details: watch tv,garden, play with cats Sexually active: No Do you think of yourself as: Straight/Heterosexual Current gender identity: Female Estefania/Yazdanism: Holiness Special estefania needs: No Agree to transfusion: Yes Financial difficulty paying for basics: Not Very Hard Female Reproductive History: Para: 2 Spontaneous abortions: No Physical Exam Const: COMMON NORMALS: no acute distress GENERAL APPEARANCE: cooperative; not ill appearing and not frail appearing HENMT: COMMON NORMALS: normocephalic, atraumatic and Normal external nose present HEAD & SCALP: normocephalic and atraumatic FACE & SINUS: normal facial exam and face symmetric NOSE: Normal external nose present Eye: COMMON NORMALS: Equal, round and reactive pupils present and EOMs intact bilaterally PUPIL: Yes Equal, round and reactive pupils present Neck/C-Spine: GENERAL: Yes trachea midline Chest: CHEST: Yes Symmetrical chest wall rise Resp: COMMON NORMALS: normal respiratory effort, No retractions, No use of accessory muscles and clear to auscultation bilaterally AUSCULTATION: clear to auscultation bilaterally Cardio: COMMON NORMALS: regular rate and regular rhythm RATE: regular rate RHYTHM: regular rhythm GI: COMMON NORMALS: Soft to palpation INSPECTION: No abdominal distension AUSCULTATION: Yes Hypoactive bowel sounds present PALPATION: Yes Soft to palpation and Yes Tenderness to palpation present (GI) (minimal generalized) RECTAL EXAM: visual inspection normal, normal sphincter tone, No External hemorrhoid(s) present, no fecal impaction, no mass(es) noted and no tenderness noted Extremity: COMMON NORMALS: no pedal edema Neuro: ANAI COMA SCALE: document GCS findings Anai coma scale eye opening: Spontaneous [place] coma scale verbal response: Orientated Anai coma scale motor response: Obey commands [place] coma scale total score: 15 SENSORY EXAM: Yes extremities (intact) Psych: COMMON NORMALS: speech normal SPEECH: Yes normal speech Skin: COMMON NORMALS: no rashes or lesions noted GENERAL SKIN EXAM: no rashes or lesions noted Course Vital Signs: Vital signs: Vital Signs Temperature 98.6 F 11/18/22 04:20 Pulse Rate 68 11/18/22 05:29 Respiratory Rate 16 11/18/22 05:29 Blood Pressure 113/74 11/18/22 05:29 Pulse Oximetry 98 11/18/22 05:29 Oxygen Delivery Me thod Room Air 11/18/22 04:44 MDM - Abdominal Pain Medical Decision Making Vitals are stable. this patient is afebrile here. Rectal exam does not reveal rectal impaction. KUB shows Constipation. As disimpaction is not an option, she will be given a bowel prep. We will start this here, and continue with magnesium citrate. This will be done at home. Lactulose for any continued Constipation following. This was explained to the patient. Close outpatient follow up. To return for any worsening or new symptoms. Lab Data Labs/Radiology: Radiology Impressions KUB X-Ray 11/18/22 04:44 IMPRESSION: Mild increased stool throughout the colon. Findings are likely related to constipation XR interpretation done by ED provider, pending radiology final review Discharge Plan Discharge Patient Disposition: Home Clinical Impression: Acute constipation Condition: Stable Prescriptions: New lactulose 20 gram/30 mL solution 20 g PO BID Qty: 300 0RF No Action clobetasol 0.05 % solution 1 applic topical DAILY Qty: 50 3RF Rx Instructions: To itchy areas on scalp as needed ciclopirox 0.77 % cream 1 applic topical BID Qty: 30 4RF Rx Instructions: to face prn levothyroxine 88 mcg tablet 88 mcg PO QAM 90 Days Qty: 90 3RF fluphenazine HCl 1 mg tablet 1 mg PO .morning Qty: 90 2RF Rx Instructions: Take one tablet every morning venlafaxine 150 mg capsule,extended release 24hr 150 mg PO QAM Qty: 90 2RF Rx Instructions: Take one capsule in the morning hydroxyzine pamoate [Vistaril] 25 mg capsule 25 mg PO BID PRN (Reason: anxiety) Qty: 60 3RF Rx Instructions: may take one capsule twice per day as needed for anxiety atorvastatin 40 mg tablet 40 mg PO .qhs Qty: 90 0RF metoprolol tartrate 25 mg tablet 12.5 mg PO BID@0900,2100 Qty: 90 3RF Bariatric Multivitamins 45 mg iron- 800 mcg-120 mcg capsule 1 cap PO DAILY (DME) Blood Glucose Test Strip See Rx Instructions .Route Qty: 50 0RF Rx Instructions: As directed (DME) blood-glucose meter [ReliOn All-In-One Meter] Kit See Rx Instructions .Route Qty: 1 0RF Rx Instructions: As directed (DME) E-Z Ject Lancets 32 gauge misc See Rx Instructions .Route Qty: 100 0RF Rx Instructions: As directed lisinopril 10 mg tablet 10 mg PO DAILY 90 Days Qty: 90 1RF Protonix 40 mg tablet,delayed release (DR/EC) 40 mg PO DAILY 90 Days Qty: 90 1RF bupropion HCl 100 mg tablet sustained-release 12 hr 100 mg PO BID MDD 2 tablets 30 Days Qty: 60 0RF ketoconazole 2 % shampoo 1 applic topical .2 x weekly Qty: 120 3RF Rx Instructions: Lather into scalp 2 times weekly. Allow to sit on scalp for 5 minutes before rinsing. fluticasone propionate 50 mcg/actuation spray,suspension 1 spray intranasal Q12H Qty: 15.8 5RF Rx Instructions: administer into each nostril trazodone 50 mg tablet 50 mg PO BEDTIME PRN (Reason: sleep) Qty: 90 2RF Rx Instructions: May take one tablet at bedtime as needed for sleep (DME) FreeStyle Yefri 2 Sensor Kit See Rx Instructions .ROUTE .COMPLEX Qty: 6 0RF Dose Instruction: USE DIRECTED. CHANGE EVERY 14 DAYS Rx Instructions: USE DIRECTED. CHANGE EVERY 14 DAYS (DME) FreeStyle Yefri 2 [place] Misc See Rx Instructions .ROUTE .COMPLEX Qty: 1 0RF Dose Instruction: USE DIRECTED Rx Instructions: USE DIRECTED ropinirole 0.5 mg tablet 0.5 mg PO QID MDD 4 tabs Rx Instructions: 340B 0.5 AM, 0.5 PM, 1 at bedtime Discharge Orders: Discharge ED (Routine); Ordered 11/18/22 Ordered By: Trevon Castro Referrals: Monica Owusu DO [Primary Care Provider] - Patient Instructions: Constipation (ED) Activity Restrictions/Additional Instructions: Take the magnesium citrate when you arrive at home. Stay close to the toilet for the next several hours. You may fill the prescription for lactulose and use it up to twice daily until stools are soft and regular. Follow-up with your doctor. Return for fever, abdominal pain, continuing to vomit, especially liquids or medications, other concerning symptoms. Coding Level of Care Code ED Communications Attendant for Emre Staples
== END 2022-11-18 05:30 | disposition home or self-care (01) ==
PROVIDERS: Emergency Provider Emergency Medicine; PCP Family Medicine
DX: K59.00 Constipation, unspecified (principal)
CPT/HCPCS: 74018; 99283

== ENCOUNTER → 2022-11-20 09:38 | Outpatient (BNVA) | payer MEDICARE, MEDICAID, SELFPAY ==
[2022-10-11 07:51] VITALS: BP 121/76; BMI 31.3
== END ==
PROVIDERS: PCP Family Medicine; Visit Provider Internal Medicine
DX: E03.8 Other specified hypothyroidism (principal); E06.3 Autoimmune thyroiditis; E04.1 Nontoxic single thyroid nodule; R13.10 Dysphagia, unspecified; E16.2 Hypoglycemia, unspecified; I10 Essential (primary) hypertension; Z79.890 Hormone replacement therapy
CPT/HCPCS: 99214

== ENCOUNTER → 2023-01-10 09:22 | Outpatient (BNVA) | payer MEDICARE, MEDICAID, SELFPAY ==
[2022-10-11 07:51] VITALS: BP 121/76; BMI 31.3
== END ==
PROVIDERS: PCP Family Medicine; Visit Provider Specialist
DX: M25.532 Pain in left wrist (principal); S52.502S Unspecified fracture of the lower end of left radius, sequela; S52.602S Unspecified fracture of lower end of left ulna, sequela; X58.XXXS Exposure to other specified factors, sequela
CPT/HCPCS: 73110

== ENCOUNTER 2023-01-10 14:26 | Emergency (ER) | payer MEDICARE, MEDICAID, SELFPAY ==
[2022-10-11 07:51] VITALS: BP 121/76; BMI 31.3
[2023-01-10 14:38] VITALS: BP 157/102; PULSE 64; RESP 17; TEMP 37; O2SAT 99; BMI 27.3
--- NOTE | 2023-01-10 15:49 | CTR_ITS ---
PROCEDURE INFORMATION: Exam: CT Head Without Contrast Exam date and time: 01/10/2023 4:06 PM Age: 67 years old Clinical indication: Injury or trauma; Fall; Blunt trauma (contusions or hematomas); Additional info: Syncope, fall TECHNIQUE: Imaging protocol: Computed tomography of the head without contrast. Radiation optimization: All CT scans at this facility use at least one of these dose optimization techniques: automated exposure control; mA and/or kV adjustment per patient size (includes targeted exams where dose is matched to clinical indication); or iterative reconstruction. REPORTING DATA: Count of CT and Cardiac NM exams in prior 12 months: This patient has received [address] and 0 known cardiac nuclear medicine studies in the 12 months prior to the current study. COMPARISON: MR head wo con* [id number] 08/08/2019 10:08 AM RADIATION DOSE METRICS: Total DLP (mGy-cm): 1068 FINDINGS: Brain: No hemorrhage. No edema. Mild diffuse cerebral atrophy and sequela of chronic small vessel ischemic disease. No mass effect. Cerebral ventricles: No ventriculomegaly. Paranasal sinuses: Visualized sinuses are unremarkable. No fluid levels. Mastoid air cells: Visualized mastoid air cells are well aerated. Bones/joints: Unremarkable. No acute fracture. Soft tissues: Unremarkable. CT/CT head wo con* [id number] IMPRESSION: No acute intracranial abnormality.
--- NOTE | 2023-01-10 15:53 | ECG_ITS ---
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 Measurements Intervals [place] Rate: 62 P: 23 [place]: 173 QRS: 41 QRSD: 89 T: 46 QT: 393 QTc: 401 Interpretive Statements SINUS RHYTHM Normal EKG Compared to ECG 10/31/2022 14:30:04 No significant changes Electronically Signed On 01-11-2023 16:41:07 [employer] by Mil Schwartz M.D. [email or web address] [email or web address] state [email or web address] ohio medical [id number]
[2023-01-10 16:04] LABS: Basophils % 0.5 %; Eosinophils # 0.1 10^3/uL (0.0-0.8); Eosinophils % 1.5 %; Lymphocytes # 2.4 10^3/uL (0.8-4.8); Lymphocytes % 36.5 %; Mean Corpuscular HGB Conc 32.7 g/dL (30-55); Mean Corpuscular Hemoglobin 30.8 pg (27-33); Mean Corpuscular Volume 94.2 fl (85-98); Mean Platelet Volume 11.2 fL (7.4-10.4); Monocytes # 0.5 10^3/uL (0.2-0.9); Monocytes % 7.8 %; Neutrophils # 3.54 10^3/uL (1.8-7.7); Neutrophils % 53.2 %; Nucleated Red Blood Cells % 0 %; Platelet Count 221 10^3/cmm (157-399); Red Blood Count 4.67 10^6/uL (3.85-5.65); Red Cell Distribution Width 12.7 % (12.1-15.1); White Blood Count 6.65 10^3/uL (3.29-11.43)
[2023-01-10 16:17] LABS: Troponin(5th) Baseline < 6 ng/L (0-10)
[2023-01-10 16:27] LABS: Alanine Aminotransferase 19 U/L (0-33); Albumin Level 3.9 g/dL (3.5-5.2); Alkaline Phosphatase 61 U/L (35-105); Anion Gap 15.1 (5-19); Aspartate Amino Transferase 19 U/L (0-32); Blood Urea Nitrogen 15 mg/dL (8-23); Calcium 9.2 mg/dL (8.5-10.5); Carbon Dioxide 28 mmol/L (22-29); Chloride 103 mmol/L (98-107); Globulin 2.1 g/dL (1.3-4.6); Glucose 84 mg/dL (65-115); Magnesium 2.3 mg/dL (1.7-2.3); Osmolality Calculated 294 mOsm/kg (285-295); Potassium 4.1 mmol/L (3.5-5.1); Sodium 142 mmol/L (136-145); Thyroid Stimulating Hormone 0.58 uIU/mL (0.27-4.20); Total Bilirubin 0.3 mg/dL (0.15-1.2)
--- NOTE | 2023-01-10 16:46 | W.ED.SYNCOPE ---
HPI - Syncope General: Chief Complaint: Syncope Stated Complaint: possible head injury Time Seen by Provider: 01/10/23 15:46 History of Present Illness: Patient presents to the ER with syncope episode. Patient blacked out on Sunday does remember anything but except waking up on the floor. Patient was unable to come to the doctor until today. Sunday was the second time the patient had fell in 2 weeks. Patient denies any pain except her forehead where she has an abrasion on the back of her head where she has a lump. Patient lives alone. Patient states she is never done this before except twice in the last 2 weeks. Nobody was there to witness these incidents. Patient is on for sure how long she was on the floor. 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, implants and grafts, initial encounter Restless leg syndrome 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 Generalized anxiety disorder with panic attacks Depression, major, recurrent, severe with psychosis Delusional disorders vs Schizophrenia Surgical History History of gastric surgery Gastric sleeve History of colonoscopy 2020 Status post hardware removal From left wrist Hx of bilateral breast reduction surgery Hx of cholecystectomy History of tonsillectomy and adenoidectomy History of partial hysterectomy Due to fibroids Family History Other Diabetes Hypertension Psychiatric illness Social History Smoking and tobacco/nicotine status: never used tobacco/nicotine Alcohol intake: never Substance/Drug Use: never Adopted: No Caregiver/support person: No Lives independently: Yes Household members: none Housing: Apartment Marital status: Marital status details: last in 2016 Number of children: 2 Number of grandchildren: 3 Highest education level completed: 12th Grade, No Diploma service: No Current occupational status: disabled Current occupational exposures/hazards: No Pets and animals: Yes Pets & animals: cat(s) Leisure activites: other Leisure activities details: watch tv,garden, play with cats Sexually active: No Do you think of yourself as: Straight/Heterosexual Current gender identity: Female Estefania/Gnosticism: Scientology Special estefania needs: No Agree to transfusion: Yes Female Reproductive History: Para: 2 Spontaneous abortions: No Physical Exam Const: COMMON NORMALS: no acute distress, average body habitus, patient oriented x3, no limitations, healthy appearing, alert and well nourished HENMT: COMMON NORMALS: normocephalic, hearing grossly normal bilaterally, external ears normal, Normal external nose present, moist oral mucous membranes and oropharynx normal; head/scalp not atraumatic (Abrasion on the right side of the forehead swelling on the's midline superi) HEAD & SCALP: normocephalic; not atraumatic (Abrasion on the right side of the forehead swelling on the's midline superi) NOSE: Normal external nose present EXTERNAL EAR: Yes external ears normal Neck/C-Spine: COMMON NORMALS: full ROM, no lymphadenopathy, supple, no meningeal signs, no JVD and Thyroid normal THYROID: Thyroid normal Chest: COMMONS NORMALS: normal inspection of the chest and normal palpation of entire chest wall Resp: COMMON NORMALS: normal respiratory effort, No retractions, No use of accessory muscles and clear to auscultation bilaterally AUSCULTATION: clear to auscultation bilaterally Cardio: COMMON NORMALS: no JVD, regular rate, regular rhythm, S1 normal heart sound present, S2 normal heart sound present, No gallops present (Cardio), No clicks present (Cardio), No murmurs present (Cardio) and No rub (Cardio) RATE: regular rate RHYTHM: regular rhythm HEART SOUNDS: S1 normal heart sound present and S2 normal heart sound present GI: COMMON NORMALS: Normal to inspection, nondistended, normoactive bowel sounds present, Soft to palpation, non-tender, No hepatosplenomegaly present and no masses PALPATION: Yes Soft to palpation and Yes No hepatosplenomegaly present Neuro: COMMON NORMALS: patient oriented x3 SENSORIUM/ORIENTATION: Yes alert MENINGEAL SIGNS: Yes no meningeal signs Course Vital Signs: Vital signs: Vital Signs Temperature 98.6 F 01/10/23 14:38 Pulse Rate 69 01/10/23 19:38 Respiratory Rate 16 01/10/23 19:38 Blood Pressure 143/89 01/10/23 19:38 Pulse Oximetry 98 01/10/23 19:38 Oxygen Delivery Me thod Room Air 01/10/23 14:38 MDM - Syncope Medical Decision Making Patient presented to the ER with syncope and fall x 2. Patient was worked up with blood work urine EKG and head CT. Head CT was negative as well as blood work was essentially benign urine did show urinary tract infection. Patient will be discharged home on antibiotics for urinary tract infection and told to follow-up with her PCP within the next 7 to 10 days for further evaluation and treatment. Differential Diagnosis Likely syncope due to orthostatic hypotension; Unlikely vasovagal syncope, complete atrioventricular block, subarachnoid hemorrhage, pulmonary embolism or dehydration Medical Records I reviewed the patient's medical records. Lab Data I reviewed the patient's lab results. 01/10/23 15:39 01/10/23 15:[address] 01/10/23 15:49 IMPRESSION: No acute intracranial abnormality. Laboratory Results WBC 6.65 10^3/uL (3.29-11.43) 01/10/23 15:39 RBC 4.67 10^6/uL (3.85-5.65) 01/10/23 15:39 Hgb 14.40 g/dL (11.27-16.99) 01/10/23 15:39 Hct 44.0 % (36-47) 01/10/23 15:39 MCV 94.2 fl (85-98) 01/10/23 15:39 MCH 30.8 pg (27-33) 01/10/23 15:39 MCHC 32.7 g/dL (30-55) 01/10/23 15:39 RDW 12.7 % (12.1-15.1) 01/10/23 15:39 Plt Count 221 10^3/cmm (157-399) 01/10/23 15:39 MPV 11.2 fL (7.4-10.4) H 01/10/23 15:39 Neut % (Auto) 53.2 % 01/10/23 15:39 Lymph % (Auto) 36.5 % 01/10/23 15:39 [place] % (Auto) 7.8 % 01/10/23 15:39 Eos % (Auto) 1.5 % 01/10/23 15:39 Baso % (Auto) 0.5 % 01/10/23 15:39 Neut # (Auto) 3.54 10^3/uL (1.8-7.7) 01/10/23 15:39 Lymph # (Auto) 2.4 10^3/uL (0.8-4.8) 01/10/23 15:39 [place] # (Auto) 0.5 10^3/uL (0.2-0.9) 01/10/23 15:39 Eos # (Auto) 0.1 10^3/uL (0.0-0.8) 01/10/23 15:39 Baso # (Auto) 0.0 10^3/uL (0.0-0.1) 01/10/23 15:39 Nucleated RBC % (auto) 0 % 01/10/23 15:39 Nucleated RBCs # 0.0 /100WBC 01/10/23 15:39 Sodium 142 mmol/L (136-145) 01/10/23 15:39 Potassium 4.1 mmol/L (3.5-5.1) 01/10/23 15:39 Chloride 103 mmol/L (98-107) 01/10/23 15:39 Carbon Dioxide 28 mmol/L (22-29) 01/10/23 15:39 Anion Gap 15.1 (5-19) 01/10/23 15:39 BUN 15 mg/dL (8-23) 01/10/23 15:39 Creatinine 0.7 mg/dL (0.5-0.9) 01/10/23 15:39 GFR Calculation 84.0 mL/min (90-130) L 01/10/23 15:39 Glucose 84 mg/dL (65-115) 01/10/23 15:39 Calculated Osmolality 294 mOsm/kg (285-295) 01/10/23 15:39 Calcium 9.2 mg/dL (8.5-10.5) 01/10/23 15:39 Magnesium 2.3 mg/dL (1.7-2.3) 01/10/23 15:39 Total Bilirubin 0.3 mg/dL (0.15-1.2) 01/10/23 15:39 AST 19 U/L (0-32) 01/10/23 15:39 ALT 19 U/L (0-33) 01/10/23 15:39 Alkaline Phosphatase 61 U/L (35-105) 01/10/23 15:39 Troponin T Baseline < 6 ng/L (0-10) 01/10/23 15:39 Troponin T 120 Minute 6.00 ng/L (0-10) 01/10/23 17:43 Delta Troponin T 0.88951 ABS# (0-10) 01/10/23 17:43 Total Protein 6.0 g/dL (6.6-8.7) L 01/10/23 15:39 Albumin 3.9 g/dL (3.5-5.2) 01/10/23 15:39 Globulin 2.1 g/dL (1.3-4.6) 01/10/23 15:39 TSH 0.58 uIU/mL (0.27-4.20) 01/10/23 15:39 Urine Color Yellow (Yellow) 01/10/23 18:22 Urine Appearance Sl hazy (CLEAR) A 01/10/23 18:22 Urine pH 8 (5-7) H 01/10/23 18:22 Ur Specific [place] 1.015 (1.005-1.030) 01/10/23 18:22 Urine Protein Neg (Negative) 01/10/23 18:22 Urine Glucose (UA) Norm (Normal) 01/10/23 18:22 Urine Ketones Negative (Negative) 01/10/23 18:22 Urine Blood Neg (Negative) 01/10/23 18:22 Urine Nitrate Negative (Negative) 01/10/23 18:22 Urine Bilirubin Neg (Negative) 01/10/23 18:22 Prot Sulfosalicylic Acd Negative (Negative) 01/10/23 18:22 Urine Urobilinogen Norm mg/dL (Negative) 01/10/23 18:22 Ur Leukocyte Esterase 2+ (Negative) H 01/10/23 18:22 Urine RBC 0-4 /hpf (0-2) H 01/10/23 18:22 Urine WBC 10-15 /hpf (0-5) H 01/10/23 18:22 Ur Squamous Epith Cells 5-10 /hpf (0-5) H 01/10/23 18:22 Ur Transition Epith Cell 0-4 /hpf 01/10/23 18:22 Ur Renal Epithelial Cell Rare /hpf 01/10/23 18:22 Amorphous Sediment Not Reportable 01/10/23 18:22 Urine Bacteria Trace /hpf (NONE) 01/10/23 18:22 Urine Mucus 1+ /hpf 01/10/23 18:22 All radiology interpretation(s) finalized by discharge Discharge Plan Discharge Patient Disposition: Home Clinical Impression: Syncope and collapse Urinary tract infection Qualifiers: Urinary tract infection type: acute cystitis Hematuria presence: with hematuria Qualified Code(s): N30.01 - Acute cystitis with hematuria Condition: Stable Prescriptions: New ciprofloxacin HCl 500 mg tablet 500 mg PO Q12H Qty: 20 0RF No Action clobetasol 0.05 % solution 1 applic topical DAILY Qty: 50 3RF Rx Instructions: To itchy areas on scalp as needed ciclopirox 0.77 % cream 1 applic topical BID Qty: 30 4RF Rx Instructions: to face prn levothyroxine 88 mcg tablet 88 mcg PO QAM 90 Days Qty: 90 3RF hydroxyzine pamoate [Vistaril] 25 mg capsule 25 mg PO BID PRN (Reason: anxiety) Qty: 60 3RF Rx Instructions: may take one capsule twice per day as needed for anxiety trazodone 50 mg tablet 50 mg PO BEDTIME PRN (Reason: sleep) Qty: 180 2RF Rx Instructions: May take one to two tablets-30 to 60 min prior to bedtime as needed for sleep fluphenazine HCl 1 mg tablet 1 mg PO .morning Qty: 90 2RF Rx Instructions: Take one tablet every morning venlafaxine 150 mg capsule,extended release 24hr 150 mg PO QAM Qty: 90 2RF Rx Instructions: Take one capsule in the morning atorvastatin 40 mg tablet 40 mg PO .qhs Qty: 90 0RF metoprolol tartrate 25 mg tablet 12.5 mg PO BID@0900,2100 Qty: 90 3RF Bariatric Multivitamins 45 mg iron- 800 mcg-120 mcg capsule 1 cap PO DAILY (DME) Blood Glucose Test Strip See Rx Instructions .Route Qty: 50 0RF Rx Instructions: As directed (DME) blood-glucose meter [ReliOn All-In-One Meter] Kit See Rx Instructions .Route Qty: 1 0RF Rx Instructions: As directed (DME) E-Z Ject Lancets 32 gauge misc See Rx Instructions .Route Qty: 100 0RF Rx Instructions: As directed Protonix 40 mg tablet,delayed release (/EC) 40 mg PO DAILY 90 Days Qty: 90 1RF ketoconazole 2 % shampoo 1 applic topical .2 x weekly Qty: 120 3RF Rx Instructions: Lather into scalp 2 times weekly. Allow to sit on scalp for 5 minutes before rinsing. fluticasone propionate 50 mcg/actuation spray,suspension 1 spray intranasal Q12H Qty: 15.8 5RF Rx Instructions: administer into each nostril (DME) FreeStyle Yefri 2 Sensor Kit See Rx Instructions .ROUTE .COMPLEX Qty: 6 0RF Dose Instruction: USE DIRECTED. CHANGE EVERY 14 DAYS Rx Instructions: USE DIRECTED. CHANGE EVERY 14 DAYS (DME) FreeStyle Yefri 2 [place] Misc See Rx Instructions .ROUTE .COMPLEX Qty: 1 0RF Dose Instruction: USE DIRECTED Rx Instructions: USE DIRECTED ropinirole 0.5 mg tablet 0.5 mg PO QID MDD 4 tabs Qty: 180 0RF Rx Instructions: 340B 0.5 AM, 0.5 PM, 1 at bedtime Discharge Orders: Discharge ED (Routine); Ordered 01/10/23 Ordered By: Roland Pablo Referrals: Monica Owusu DO [Primary Care Provider] - 1 week Patient Instructions: Syncope, Urinary Tract Infection in Women (DC) Coding Level of Care Code ED [employer] Consultant for Emre Staples
[2023-01-10 16:48] VITALS: BP 141/91; PULSE 64; RESP 16; O2SAT 97
[2023-01-10 17:04] VITALS: BP 125/84; BP 134/84; BP 135/98; PULSE 62; PULSE 68; PULSE 75
[2023-01-10 18:10] VITALS: BP 146/92
[2023-01-10 18:13] LABS: Troponin 5 2HR Delta 0.00001 ABS# (0-10)
[2023-01-10 19:15] LABS: Add Urine Microscopic? YES; Bilirubin Urine Neg (Negative); Blood Urine Neg (Negative); Glucose Urine UA Norm (Normal); Ketones Urine Negative (Negative); Leukocyte Esterase Urine 2+ (Negative); Nitrate Urine Negative (Negative); Protein Urine Neg (Negative); Specific Gravity, Urine 1.015 (1.005-1.030); Sulfosalicylic Acid Urine Negative (Negative); Urine Appearance SL Hazy (CLEAR); Urine Color Yellow (Yellow); Urobilinogen Urine Norm (Negative); pH Urine 8 (5-7)
[2023-01-10 19:19] LABS: Bacteria Urine TRACE /hpf; Mucus Urine 1+ /hpf; RBC Urine 0-4 /hpf (0-2); Renal Epithelial Cells Urine RARE /hpf; Transitional Epi Cells Urine 0-4 /hpf
[2023-01-10 19:20] LABS: Add Urine Culture? No
[2023-01-10] MEDS: ciprofloxacin 500 mg Tablet PO (19:37)
[2023-01-10 19:38] VITALS: BP 143/89; PULSE 69; RESP 16; O2SAT 98
== END 2023-01-10 19:57 | disposition home or self-care (01) ==
PROVIDERS: Emergency Provider Emergency Medicine; PCP Family Medicine
DX: R55 Syncope and collapse (principal); N30.01 Acute cystitis with hematuria; M25.532 Pain in left wrist; S52.502S Unspecified fracture of the lower end of left radius, sequela; S52.602S Unspecified fracture of lower end of left ulna, sequela; X58.XXXS Exposure to other specified factors, sequela
CPT/HCPCS: 70450; 80053; 81001; 83735; 84443; 84484; 85025; 93005; 99204; 99285

== ENCOUNTER 2023-01-16 09:41 | Outpatient (RCR) | payer MEDICARE, MEDICAID, SELFPAY ==
[2022-10-11 07:51] VITALS: BP 121/76; BMI 31.3
== END 2023-02-11 23:59 | disposition home or self-care (01) ==
LOC: SOT 09:41
PROVIDERS: PCP Family Medicine; Visit Provider Specialist
DX: S62.92XD Unspecified fracture of left hand, subsequent encounter for fracture with routine healing (principal); X58.XXXD Exposure to other specified factors, subsequent encounter
CPT/HCPCS: 97022; 97110; 97165

== ENCOUNTER 2023-02-12 06:00 | Outpatient (RCR) | payer MEDICARE, MEDICAID, SELFPAY ==
[2022-10-11 07:51] VITALS: BP 121/76; BMI 31.3
== END 2023-03-14 23:59 | disposition home or self-care (01) ==
LOC: SOT 06:00
PROVIDERS: PCP Family Medicine; Visit Provider Specialist
DX: S62.92XD Unspecified fracture of left hand, subsequent encounter for fracture with routine healing (principal); X58.XXXD Exposure to other specified factors, subsequent encounter
CPT/HCPCS: 97022; 97110

== ENCOUNTER → 2023-03-01 09:33 | Outpatient (BNVA) | payer MEDICARE, MEDICAID, SELFPAY ==
[2022-10-11 07:51] VITALS: BP 121/76; BMI 31.3
== END ==
PROVIDERS: PCP Family Medicine; Visit Provider Nurse Practitioner Family
DX: Z85.828 Personal history of other malignant neoplasm of skin (principal); B35.3 Tinea pedis; B35.1 Tinea unguium; L21.8 Other seborrheic dermatitis; L57.8 Other skin changes due to chronic exposure to nonionizing radiation; D22.62 Melanocytic nevi of left upper limb, including shoulder; L81.4 Other melanin hyperpigmentation; L85.3 Xerosis cutis
CPT/HCPCS: 99214

== ENCOUNTER → 2023-03-20 10:17 | Outpatient (BNVA) | payer MEDICARE, MEDICAID, SELFPAY ==
[2022-10-11 07:51] VITALS: BP 121/76; BMI 31.3
== END ==
PROVIDERS: PCP Family Medicine; Visit Provider Internal Medicine
DX: E04.1 Nontoxic single thyroid nodule (principal); E03.8 Other specified hypothyroidism; E06.3 Autoimmune thyroiditis; I10 Essential (primary) hypertension; R13.10 Dysphagia, unspecified; E16.2 Hypoglycemia, unspecified; E66.9 Obesity, unspecified; Z68.32 Body mass index [BMI] 32.0-32.9, adult; Z79.85 Long-term (current) use of injectable non-insulin antidiabetic drugs
CPT/HCPCS: 99214

== ENCOUNTER 2023-03-29 15:18 | Outpatient (CLI) | payer MEDICARE, MEDICAID, SELFPAY ==
[2022-10-11 07:51] VITALS: BP 121/76; BMI 31.3
--- NOTE | 2023-03-29 15:00 | US_ITS ---
WS: [id number] THYROID ULTRASOUND HISTORY: thyroid nodule COMPARISON: 09/19/2022 Right lobe: 0.9 cm x 1.1 cm x 3.5 cm (w x ap x l). Volume: 1.78 cm3. Normal size and echotexture. No significant are dominant nodules are present. Left lobe: 1.1 cm x 1.3 cm x 2.8 cm (w x ap x l). Volume: 1.9 cm3. Normal sized gland. Partially calcified nodule in the superior pole with shadowing measures 7 x 7 x 4 mm. Measures slightly smaller than the prior study. No increasing soft tissue. Isthmus: 0.3 cm. IMPRESSION: 1. No change in the densely calcified nodule in the superior pole LEFT thyroid. Recommend continued yearly ultrasound evaluation. 2. Negative RIGHT thyroid.
== END 2023-03-29 15:19 | disposition home or self-care (01) ==
LOC: RAD 15:19
PROVIDERS: PCP Family Medicine; Visit Provider Internal Medicine
DX: E04.1 Nontoxic single thyroid nodule (principal); E03.8 Other specified hypothyroidism; E06.3 Autoimmune thyroiditis
CPT/HCPCS: 76536

== ENCOUNTER → 2023-04-04 14:44 | Outpatient (BNVA) | payer MEDICARE, MEDICAID, SELFPAY ==
[2022-10-11 07:51] VITALS: BP 121/76; BMI 31.3
== END ==
PROVIDERS: PCP Family Medicine; Visit Provider Family Medicine
DX: E11.9 Type 2 diabetes mellitus without complications; I10 Essential (primary) hypertension
CPT/HCPCS: 80048; 83036; 84439; 84443

== ENCOUNTER → 2023-05-07 10:56 | Outpatient (BNVA) | payer OTHER, SELFPAY ==
[2023-04-12 09:29] VITALS: BP 121/76; BMI 31.3
== END ==
PROVIDERS: PCP Family Medicine; Visit Provider Nurse Practitioner Psychiatric/Mental Health
DX: F22 Delusional disorders (principal); F41.1 Generalized anxiety disorder; Z79.899 Other long term (current) drug therapy
CPT/HCPCS: 80061

== ENCOUNTER 2023-08-02 13:20 | Outpatient (CLI) | payer MEDICARE, MEDICAID, SELFPAY ==
[2023-07-12 08:01] VITALS: BP 116/70; BMI 31.0
--- NOTE | 2023-08-02 13:29 | XR_ITS ---
WS: [id number] Exam: XR KUB [id number] Date/Time of Exam: 08/02/2023 1:32 PM Reason For Exam: K59.00 - Constipation, unspecified Comparison 11/18/2022. No bowel obstruction or free air. No sign of organ enlargement. Signs of previous gastric surgery and cholecystectomy. Nonspecific 1 cm calcification seen in the upper RIGHT abdomen. Signs of previous p elvic surgery. No sign of constipation. Bony structures are intact. XR/XR KUB [id number] IMPRESSION: 1. No acute abdominal process. Postoperative changes as noted above. 2. No sign of constipation.
== END 2023-08-02 13:21 | disposition home or self-care (01) ==
PROVIDERS: PCP Family Medicine; Visit Provider Nurse Practitioner Family
DX: K59.00 Constipation, unspecified (principal); R93.5 Abnormal findings on diagnostic imaging of other abdominal regions, including retroperitoneum
CPT/HCPCS: 74018

== ENCOUNTER 2023-08-02 17:50 | Emergency (ER) | payer MEDICARE, MEDICAID, SELFPAY ==
[2023-07-12 08:01] VITALS: BP 116/70; BMI 31.0
--- NOTE | 2023-08-02 18:10 | CTR_ITS ---
PROCEDURE INFORMATION: Exam: CT Abdomen And Pelvis With Contrast Exam date and time: 08/02/2023 7:33 PM Age: 67 years old Clinical indication: Abdominal pain; Generalized; Prior surgery; Surgery date: 6+ months; Surgery type: Gb/gastric sleeve/ hyst; Additional info: Vomiting TECHNIQUE: Imaging protocol: Computed tomography of the abdomen and pelvis with contrast. Radiation optimization: All CT scans at this facility use at least one of these dose optimization techniques: automated exposure control; mA and/or kV adjustment per patient size (includes targeted exams where dose is matched to clinical indication); or iterative reconstruction. Contrast material: OMNI 350; Contrast volume: 100 ml; Contrast route: INTRAVENOUS (IV); COMPARISON: CR XR KUB [id number] 08/02/2023 1:33 PM RADIATION DOSE METRICS: Total DLP (mGy-cm): 543.23 FINDINGS: Liver: Normal. No mass. Gallbladder and bile ducts: The gallbladder is absent. Pancreas: Normal. No ductal dilation. Spleen: Normal. No splenomegaly. Adrenal glands: Normal. No mass. Kidneys and ureters: Left simple appearing renal cysts is present which do not need further follow-up. Stomach and bowel: Prior gastric sleeve. Appendix: No evidence of appendicitis. Intraperitoneal space: Unremarkable. No free air. No significant fluid collection. Vasculature: Unremarkable. No abdominal aortic aneurysm. Lymph nodes: Unremarkable. No enlarged lymph nodes. Urinary bladder: Unremarkable as visualized. Reproductive: Unremarkable as visualized. Bones/joints: Unremarkable. No acute fracture. Soft tissues: Unremarkable. CT/CT abdomen pelvis w con* [id number] IMPRESSION: 1. Gastric sleeve with no bowel obstruction or inflammatory process associated with the bowel. 2. No free air or significant free fluid in the abdomen or pelvis. 3. No evidence of appendicitis. COMMENTS: Consistent with the [employer]'s Incidental Findings Committee white paper (J Am Bartolo Radiol 2018): Any incidental renal lesion less than 1 cm or classified as too small to characterize, or any incidental cystic renal lesion characterized as simple-appearing, is likely benign. No follow-up imaging is recommended for these lesions per consensus recommendations based on imaging criteria.
--- NOTE | 2023-08-02 18:11 | ED_ITS ---
HPI - Abdominal Pain 2 General: Chief Complaint: Nausea/Vomiting/Diarrhea Stated Complaint: N/v, Abd pain Time Seen by Provider: 08/02/23 18:07 Source: patient Mode of arrival: ambulatory Limitations: no limitations History of Present Illness: 67-year-old female had a history of ravindra elia sleeve roughly 3 years ago states that over the last 2 days she been having nausea and vomiting with some abdominal cramping states she has not been able to tolerate p.o. She denies any severe abdominal pain states it is more cramping pain denies any diarrhea she did have a bowel movement today. Denies any worsening improving factors. Associated Symptoms: Reports nausea and vomiting; Denies chills, diarrhea, dysuria and fever(s) Review of Systems 2 Const: Denies: fever(s), chills, body aches or change in appetite ENMT: Denies: throat pain or dental pain Card: Denies: chest pain Resp: Denies: dyspnea GI: Reports: abdominal pain, nausea and vomiting; Denies: diarrhea : Denies: dysuria Musc: Denies: neck pain or back pain Skin/Breast: Denies: rash Neuro: Denies: headache(s) PFSH ED 2 PFSH: Medical History History of nonmelanoma skin cancer Psychiatric care Psychiatric care Sjogrens syndrome Chronic post-traumatic stress disorder 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, implants and grafts, initial encounter Restless leg syndrome 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 Generalized anxiety disorder with panic attacks Depression, major, recurrent, severe with psychosis Delusional disorders vs Schizophrenia Surgical History History of gastric surgery Gastric sleeve History of colonoscopy 2020 Status post hardware removal From left wrist Hx of bilateral breast reduction surgery Hx of cholecystectomy History of tonsillectomy and adenoidectomy History of partial hysterectomy Due to fibroids Family History Other Diabetes Hypertension Psychiatric illness Social History (Updated 05/07/23 @ 10:26 by Michelle Desai RN) Smoking and tobacco/nicotine status: never used tobacco/nicotine Alcohol intake: never Substance/Drug Use: never Adopted: No Caregiver/support person: No Lives independently: Yes Household members: none Housing: Apartment Marital status: Marital status details: last in 2016 Number of children: 2 Number of grandchildren: 3 Highest education level completed: 12th Grade, No Diploma service: No Current occupational status: disabled Current occupational exposures/hazards: No Pets and animals: Yes (2 cats) Pets & animals: cat(s) Leisure activites: art, music and other Leisure activities details: watch tv,garden, play with cats Sexually active: No Do you think of yourself as: Straight/Heterosexual Current gender identity: Female Estefania/Moravian: Buddhism Special estefania needs: No Agree to transfusion: Yes Female Reproductive History: Para: 2 Spontaneous abortions: No Physical Exam 2 Const: COMMON NORMALS: no acute distress, patient oriented x3 and healthy appearing HENMT: COMMON NORMALS: normocephalic and atraumatic HEAD & SCALP: n ormocephalic and atraumatic Neck/C-Spine: COMMON NORMALS: full ROM and supple Chest: COMMONS NORMALS: normal inspection of the chest Resp: COMMON NORMALS: normal respiratory effort, No retractions, No use of accessory muscles and clear to auscultation bilaterally AUSCULTATION: clear to auscultation bilaterally Cardio: COMMON NORMALS: regular rate, regular rhythm and No murmurs present (Cardio) RATE: regular rate RHYTHM: regular rhythm GI: COMMON NORMALS: Normal to inspection, nondistended, normoactive bowel sounds present, Soft to palpation, non-tender and no masses PALPATION: Yes Soft to palpation Extremity: COMMON NORMALS: normal to inspection and full ROM Neuro: COMMON NORMALS: patient oriented x3, moves all extremities and no focal motor deficits Psych: COMMON NORMALS: mental status grossly normal, Normal thought process present and cooperative THOUGHT PROCESS: Normal thought process present Skin: COMMON NORMALS: no rashes or lesions noted and no wounds GENERAL SKIN EXAM: no rashes or lesions noted Course 2 Vital Signs: Vital signs: Vital Signs Temperature 98.9 F 08/02/23 18:21 Pulse Rate 78 08/02/23 18:53 Respiratory Rate 16 08/02/23 18:53 Blood Pressure 151/105 08/02/23 18:53 Pulse Oximetry 96 08/02/23 18:53 Oxygen Delivery Me thod Room Air 08/02/23 18:53 MDM - Abdominal Pain Medical Decision Making Patient presents with nausea vomiting her blood work CT scan here is all normal she is felt improved here we will prescribe her Zofran I feel she stable for discharge she is follow-up with PCP return if worsening she understands agrees to plan abdominal exam at discharge is benign Medical Records I reviewed the patient's medical records. Lab Data I reviewed the patient's lab results. 08/02/23 18:17 08/02/23 18:17 Labs/Radiology: Radiology Impressions Abdomen/Pelvis CT 08/02/23 18:10 IMPRESSION: 1. Gastric sleeve with no bowel obstruction or inflammatory process associated with the bowel. 2. No free air or significant free fluid in the abdomen or pelvis. 3. No evidence of appendicitis. COMMENTS: Consistent with the [employer]'s Incidental Findings Committee white paper (J Am Bartolo Radiol 2018): Any incidental renal lesion less than 1 cm or classified as too small to characterize, or any incidental cystic renal lesion characterized as simple-appearing, is likely benign. No follow-up imaging is recommended for these lesions per consensus recommendations based on imaging criteria. Laboratory Results WBC 9.06 10^3/uL (3.29-11.43) 08/02/23 18:17 RBC 5.59 10^6/uL (3.85-5.65) 08/02/23 18:17 Hgb 16.30 g/dL (11.27-16.99) 08/02/23 18:17 Hct 49.2 % (36-47) H 08/02/23 18:17 MCV 88.0 fl (85-98) 08/02/23 18:17 MCH 29.2 pg (27-33) 08/02/23 18:17 MCHC 33.1 g/dL (30-55) 08/02/23 18:17 RDW 12.9 % (12.1-15.1) 08/02/23 18:17 Plt Count 327 10^3/cmm (157-399) 08/02/23 18:17 MPV 11.1 fL (7.4-10.4) H 08/02/23 18:17 Neut % (Auto) 68.8 % 08/02/23 18:17 Lymph % (Auto) 22.3 % 08/02/23 18:17 [place] % (Auto) 7.3 % 08/02/23 18:17 Eos % (Auto) 0.4 % 08/02/23 18:17 Baso % (Auto) 0.6 % 08/02/23 18:17 Neut # (Auto) 6.24 10^3/uL (1.8-7.7) 08/02/23 18:17 Lymph # (Auto) 2.0 10^3/uL (0.8-4.8) 08/02/23 18:17 [place] # (Auto) 0.7 10^3/uL (0.2-0.9) 08/02/23 18:17 Eos # (Auto) 0.0 10^3/uL (0.0-0.8) 08/02/23 18:17 Baso # (Auto) 0.1 10^3/uL (0.0-0.1) 08/02/23 18:17 Nucleated RBC % (auto) 0 % 08/02/23 18:17 Nucleated RBCs # 0.0 /100WBC 08/02/23 18:17 Sodium 140 mmol/L (136-145) 08/02/23 18:17 Potassium 3.4 mmol/L (3.5-5.1) L 08/02/23 18:17 Chloride 102 mmol/L (98-107) 08/02/23 18:17 Carbon Dioxide 25 mmol/L (22-29) 08/02/23 18:17 Anion Gap 16.4 (5-19) 08/02/23 18:17 BUN 18 mg/dL (8-23) 08/02/23 18:17 Creatinine 0.9 mg/dL (0.5-0.9) 08/02/23 18:17 GFR Calculation 62.8 mL/min (90-130) L 08/02/23 18:17 Glucose 100 mg/dL (65-115) 08/02/23 18:17 Calculated Osmolality 292 mOsm/kg (285-295) 08/02/23 18:17 Calcium 9.8 mg/dL (8.5-10.5) 08/02/23 18:17 Total Bilirubin 0.6 mg/dL (0.15-1.2) 08/02/23 18:17 AST 29 U/L (0-32) 08/02/23 18:17 ALT 35 U/L (0-33) H 08/02/23 18:17 Alkaline Phosphatase 100 U/L (35-105) 08/02/23 18:17 Total Protein 7.8 g/dL (6.6-8.7) 08/02/23 18:17 Albumin 4.5 g/dL (3.5-5.2) 08/02/23 18:17 Globulin 3.3 g/dL (1.3-4.6) 08/02/23 18:17 Lipase 112 U/L (13-60) H 08/02/23 18:17 Urine Color Yellow (Yellow) 08/02/23 18:33 Urine Appearance Clear (CLEAR) 08/02/23 18:33 Urine pH 5 (5-7) 08/02/23 18:33 Ur Specific [place] 1.030 (1.005-1.030) 08/02/23 18:33 Urine Protein Trace (Negative) 08/02/23 18:33 Urine Glucose (UA) Norm (Normal) 08/02/23 18:33 Urine Ketones 2+ (Negative) H 08/02/23 18:33 Urine Blood 3+ (Negative) H 08/02/23 18:33 Urine Nitrate Negative (Negative) 08/02/23 18:33 Urine Bilirubin 1+ (Negative) H 08/02/23 18:33 Urine Urobilinogen Norm mg/dL (Negative) 08/02/23 18:33 Ur Leukocyte Esterase 2+ (Negative) H 08/02/23 18:33 Urine RBC 5-10 /hpf (0-2) H 08/02/23 18:33 Urine WBC 25-40 /hpf (0-5) H 08/02/23 18:33 Ur Squamous Epith Cells 0-4 /hpf (0-5) H 08/02/23 18:33 Ur Transition Epith Cell 0-4 /hpf 08/02/23 18:33 Amorphous Sediment Not Reportable 08/02/23 18:33 Urine Bacteria Trace /hpf (NONE) 08/02/23 18:33 Urine Mucus 2+ /hpf 08/02/23 18:33 All radiology interpretation(s) finalized by discharge Discharge Plan Discharge Patient Disposition: Home Clinical Impression: Nausea and vomiting Condition: Stable Prescriptions: New ondansetron 4 mg tablet,disintegrating 4 mg PO Q6H PRN (Reason: nausea and vomiting) Qty: 14 0RF No Action clobetasol 0.05 % solution 1 applic topical DAILY Qty: 50 3RF Rx Instructions: To itchy areas on scalp as needed ciclopirox 0.77 % cream 1 applic topical BID Qty: 30 4RF Rx Instructions: to face prn hydroxyzine pamoate [Vistaril] 25 mg capsule 25 mg PO BID PRN (Reason: anxiety) Qty: 60 3RF Rx Instructions: may take one capsule twice per day as needed for anxiety trazodone 50 mg tablet 50 mg PO BEDTIME PRN (Reason: sleep) Qty: 180 2RF Rx Instructions: May take one to two tablets-30 to 60 min prior to bedtime as needed for sleep venlafaxine 150 mg capsule,extended release 24hr 150 mg PO QAM Qty: 90 2RF Rx Instructions: Take one capsule in the morning fluphenazine HCl 1 mg tablet 1 mg PO .morning Qty: 90 2RF Rx Instructions: Take one tablet every morning Bariatric Multivitamins 45 mg iron- 800 mcg-120 mcg capsule 1 cap PO DAILY (DME) Blood Glucose Test Strip See Rx Instructions .Route Qty: 50 0RF Rx Instructions: As directed (DME) blood-glucose meter [ReliOn All-In-One Meter] Kit See Rx Instructions .Route Qty: 1 0RF Rx Instructions: As directed (DME) E-Z Ject Lancets 32 gauge misc See Rx Instructions .Route Qty: 100 0RF Rx Instructions: As directed ropinirole 0.5 mg tablet 0.5 mg PO QID MDD 4 tabs 90 Days Qty: 360 1RF Rx Instructions: 1 tab in the AM & PM, 2 at bedtime fluticasone propionate 50 mcg/actuation spray,suspension See Rx Instructions .ROUTE .COMPLEX Qty: 16 11RF Dose Instruction: USE 1 SPRAY IN EACH NOSTRIL EVERY 12 HOURS Rx Instructions: USE 1 SPRAY IN EACH NOSTRIL EVERY 12 HOURS atorvastatin 40 mg tablet See Rx Instructions .ROUTE .COMPLEX Qty: 90 3RF Dose Instruction: TAKE 1 TABLET BY MOUTH EVERY DAY AT BEDTIME Rx Instructions: TAKE 1 TABLET BY MOUTH EVERY DAY AT BEDTIME bupropion HCl 100 mg tablet sustained-release 12 hr 100 mg PO BID MDD 2 tablets 90 Days Qty: 180 2RF ondansetron 4 mg tablet,disintegrating 4 mg PO Q8H Qty: 20 0RF ketoconazole 2 % shampoo 1 applic topical .2 x weekly Qty: 120 3RF Rx Instructions: Lather into scalp 2 times weekly. Allow to sit on scalp for 5 minutes before rinsing. (DME) FreeStyle Yefri 2 [place] Misc See Rx Instructions .Route Qty: 1 0RF Rx Instructions: As directed levothyroxine 88 mcg tablet 88 mcg PO QAM 90 Days Qty: 90 3RF (DME) FreeStyle Yefri 2 Sensor Kit See Rx Instructions .Route Qty: 6 2RF Rx Instructions: As directed pantoprazole 40 mg tablet,delayed release (DR/EC) See Rx Instructions .ROUTE .COMPLEX Qty: 90 0RF Dose Instruction: Take 1 tablet by mouth once daily Rx Instructions: Take 1 tablet by mouth once daily metoprolol tartrate 25 mg tablet 12.5 mg PO BID@0900,2100 Qty: 90 2RF Ozempic 0.25 mg or 0.5 mg (2 mg/3 mL) pen injector See Rx Instructions .ROUTE .COMPLEX Qty: 3 11RF Dose Instruction: INJECT 0.5MG SUBCUTANEOUSLY EVERY 7 DAYS FOR ONE MONTH Rx Instructions: INJECT 0.5MG SUBCUTANEOUSLY EVERY 7 DAYS FOR ONE MONTH Ozempic 1 mg/dose (4 mg/3 mL) pen injector See Rx Instructions .ROUTE .COMPLEX Qty: 3 11RF Dose Instruction: INJECT 1MG SUBCUTANEOUSLY EVERY 7 DAYS Rx Instructions: INJECT 1MG SUBCUTANEOUSLY EVERY 7 DAYS Discharge Orders: Discharge ED (Routine); Ordered 08/02/23 Ordered By: Esequiel Anand Referrals: Carmen Mauro MD [Primary Care Provider] - 4-7 days Discharge Diet: Advance as tolerated Discharge Activity: Resume usual activity Patient Instructions: Acute Nausea and Vomiting (ED) Coding Level of Care Code ED [employer]
[2023-08-02 18:21] VITALS: BP 149/96; PULSE 86; RESP 16; TEMP 37.2; O2SAT 94; BMI 28.3
[2023-08-02] MEDS: sodium chloride 0.9% 1,000 ML 999 ML IV (18:26)
[2023-08-02] MEDS: ondansetron 2 mg/ML SDV 2 mL 4 MG IVP (18:27)
[2023-08-02 18:28] LABS: Basophils # 0.1 10^3/uL (0.0-0.1); Basophils % 0.6 %; Eosinophils % 0.4 %; Hematocrit 49.2 % (36-47); Lymphocytes % 22.3 %; Mean Corpuscular HGB Conc 33.1 g/dL (30-55); Mean Corpuscular Hemoglobin 29.2 pg (27-33); Mean Platelet Volume 11.1 fL (7.4-10.4); Monocytes # 0.7 10^3/uL (0.2-0.9); Monocytes % 7.3 %; Neutrophils # 6.24 10^3/uL (1.8-7.7); Neutrophils % 68.8 %; Nucleated Red Blood Cells % 0 %; Platelet Count 327 10^3/cmm (157-399); Red Blood Count 5.59 10^6/uL (3.85-5.65); Red Cell Distribution Width 12.9 % (12.1-15.1); White Blood Count 9.06 10^3/uL (3.29-11.43)
[2023-08-02 18:48] LABS: Glucose Urine UA Norm (Normal); Ketones Urine 2+ (Negative); Protein Urine Trace (Negative); Urine Appearance Clear (CLEAR); Urine Color Yellow (Yellow); pH Urine 5 (5-7)
[2023-08-02 18:49] LABS: Add Urine Microscopic? YES; Bilirubin Urine 1+ (Negative); Blood Urine 3+ (Negative); Leukocyte Esterase Urine 2+ (Negative); Nitrate Urine Negative (Negative); Urobilinogen Urine Norm (Negative)
[2023-08-02 18:53] VITALS: BP 151/105; PULSE 78; RESP 16; O2SAT 96
[2023-08-02 18:56] LABS: Alanine Aminotransferase 35 U/L (0-33); Albumin Level 4.5 g/dL (3.5-5.2); Alkaline Phosphatase 100 U/L (35-105); Anion Gap 16.4 (5-19); Aspartate Amino Transferase 29 U/L (0-32); Blood Urea Nitrogen 18 mg/dL (8-23); Calcium 9.8 mg/dL (8.5-10.5); Carbon Dioxide 25 mmol/L (22-29); Chloride 102 mmol/L (98-107); Creatinine Clr Calc Pharmacy 59.4902; Globulin 3.3 g/dL (1.3-4.6); Glomerular Filtration Rate 62.8 mL/min (90-130); Glucose 100 mg/dL (65-115); Lipase 112 U/L (13-60); Osmolality Calculated 292 mOsm/kg (285-295); Potassium 3.4 mmol/L (3.5-5.1); Sodium 140 mmol/L (136-145); Total Bilirubin 0.6 mg/dL (0.15-1.2); Total Protein 7.8 g/dL (6.6-8.7)
[2023-08-02 19:02] LABS: Add Urine Culture? Yes; Bacteria Urine TRACE /hpf; Mucus Urine 2+ /hpf; Squamous Epithelial Cell Urine 0-4 /hpf (0-5); Transitional Epi Cells Urine 0-4 /hpf; WBC Urine 25-40 /hpf (0-5)
[2023-08-02] MEDS: iohexol 350 mg/mL 500 mL Btl (per mL) IV (19:36)
[2023-08-02 21:24] VITALS: BP 149/104; PULSE 79; RESP 14; TEMP 37.2; O2SAT 97
== END 2023-08-02 21:25 | disposition home or self-care (01) ==
PROVIDERS: Emergency Provider Emergency Medicine; PCP Family Medicine
DX: R11.2 Nausea with vomiting, unspecified (principal); Z79.85 Long-term (current) use of injectable non-insulin antidiabetic drugs; Z98.84 Bariatric surgery status
CPT/HCPCS: 36415; 74177; 80053; 81001; 83690; 85025; 87086; 96361; 96374; 99285; J2405; J7030; Q9967

== ENCOUNTER → 2023-08-14 11:30 | Outpatient (BNVA) | payer MEDICARE, MEDICAID, SELFPAY ==
[2023-08-13 10:16] VITALS: BP 116/70; BMI 31.0
== END ==
PROVIDERS: PCP Family Medicine; Visit Provider Family Medicine
DX: Z68.30 Body mass index [BMI] 30.0-30.9, adult (principal); F33.3 Major depressive disorder, recurrent, severe with psychotic symptoms; F41.1 Generalized anxiety disorder; F41.0 Panic disorder [episodic paroxysmal anxiety]; R82.90 Unspecified abnormal findings in urine
CPT/HCPCS: 81000; 87086

== ENCOUNTER → 2023-08-27 14:18 | Outpatient (BNVA) | payer MEDICARE, MEDICAID, SELFPAY ==
[2023-08-13 10:16] VITALS: BP 116/70; BMI 31.0
== END ==
PROVIDERS: PCP Family Medicine; Referring Provider Family Medicine; Visit Provider Surgery
DX: R11.2 Nausea with vomiting, unspecified (principal); Z98.84 Bariatric surgery status
CPT/HCPCS: 99214

== ENCOUNTER → 2023-10-02 11:07 | Outpatient (BNVA) | payer MEDICARE, MEDICAID, SELFPAY ==
[2023-08-13 10:16] VITALS: BP 116/70; BMI 31.0
== END ==
PROVIDERS: PCP Family Medicine; Visit Provider Family Medicine
DX: I10 Essential (primary) hypertension (principal); E11.9 Type 2 diabetes mellitus without complications
CPT/HCPCS: 84439; 84443

== ENCOUNTER 2023-10-11 09:58 | Outpatient (CLI) | payer MEDICARE, MEDICAID, SELFPAY ==
[2023-08-13 10:16] VITALS: BP 116/70; BMI 31.0
--- NOTE | 2023-10-11 10:00 | MM_ITS ---
WS: [id number] VIEWS: MLO and CC views both breasts. 3D digital tomosynthesis is also included in this exam. Comparison made with prior exam of 11/29/2006, 12/05/2007, 03/29/2011, 09/12/2013, 08/16/2016, 08/08/2018, 08/10/2020, 09/30/2021, 10/03/2022.. Findings: Questionable new irregular 4 mm nodule at the 12 o'clock position in the RIGHT breast seen on the MLO view only. This is at mid to posterior depth. No new finding in the LEFT breast. Compression spot im aging and 90 degree lateral image of the RIGHT breast as well as regional ultrasound suggested for fu rther work-up. The breasts are almost entirely fatty. 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
== END 2023-10-11 09:59 | disposition home or self-care (01) ==
LOC: MOBLMAM 10:03
PROVIDERS: PCP Family Medicine; Visit Provider Family Medicine
DX: Z12.31 Encounter for screening mammogram for malignant neoplasm of breast (principal); R92.313 Mammographic fatty tissue density, bilateral breasts; N63.12 Unspecified lump in the right breast, upper inner quadrant
CPT/HCPCS: 77063; 77067

== ENCOUNTER 2023-10-23 09:45 | Outpatient (CLI) | payer MEDICARE, MEDICAID, SELFPAY ==
[2023-08-13 10:16] VITALS: BP 116/70; BMI 31.0
[2023-10-23 10:59] LABS: Estmated Average Glucose 105; Hemoglobin A1C 5.3 % (4.0-6.0)
[2023-10-23 11:21] LABS: Alanine Aminotransferase 21 U/L (0-33); Albumin Level 3.7 g/dL (3.5-5.2); Alkaline Phosphatase 72 U/L (35-105); Anion Gap 12.9 (5-19); Aspartate Amino Transferase 19 U/L (0-32); Blood Urea Nitrogen 19 mg/dL (8-23); Calcium 8.8 mg/dL (8.5-10.5); Carbon Dioxide 29 mmol/L (22-29); Chloride 103 mmol/L (98-107); Chol HDL Ratio 2.18 mg/dL (0.0-4.40); Cholesterol 131 mg/dL (0-200); Free T4 Free Thyroxine 1.12 ng/dL (0.82-1.77); Globulin 2.3 g/dL (1.3-4.6); Glomerular Filtration Rate 62.6 mL/min (90-130); Glucose 89 mg/dL (65-115); HDL Cholesterol 60 mg/dL (60-100); LDL Cholesterol Calculated 48 mg/dL (50-129); Osmolality Calculated 294 mOsm/kg (285-295); Potassium 3.9 mmol/L (3.5-5.1); Sodium 141 mmol/L (136-145); Thyroid Stimulating Hormone 1.78 uIU/mL (0.27-4.20); Total Bilirubin 0.3 mg/dL (0.15-1.2); Triglycerides 113 mg/dL (0-150)
[2023-10-23 11:22] LABS: Creatinine Urine, Random 231 mg/dL (28-217); Microalbum Creatinine Ratio Ur 4 mg/dL (0-20); Microalbumin Random Urine 1 ug/dL (0-20)
== END 2023-10-23 09:46 | disposition home or self-care (01) ==
PROVIDERS: Internal Medicine; PCP Family Medicine; Visit Provider Family Medicine
DX: E03.8 Other specified hypothyroidism; E11.9 Type 2 diabetes mellitus without complications; E06.3 Autoimmune thyroiditis; E16.2 Hypoglycemia, unspecified; E78.2 Mixed hyperlipidemia; I10 Essential (primary) hypertension
CPT/HCPCS: 36415; 80053; 80061; 82044; 83036; 84439; 84443

== ENCOUNTER 2023-10-23 09:46 | Outpatient (CLI) | payer MEDICARE, MEDICAID, SELFPAY ==
[2023-08-13 10:16] VITALS: BP 116/70; BMI 31.0
--- NOTE | 2023-10-23 10:00 | MM_ITS ---
WS: [id number] ADDITIONAL VIEWS RIGHT MAMMOGRAM WITH DIGITAL BREAST TOMOSYNTHESIS. HISTORY: R92.8 - Other abnormal and inconclusive findings on diagn... COMPARISON: 10/11/2023, 10/03/2022 RIGHT MAMMOGRAM: Spot compression views and true ML with digital breast tomosynthesis and SM. Breast composition: There are scattered areas of fibroglandular density. The asymmetry described on the RIGHT MLO projection resolves with additional imaging. No persistent a symmetry or distortion. This was likely superimposed fibroglandular densities. MM/[place] [id number] IMPRESSION: BI-RADS: 2 - Benign. FOLLOW UP: 1 Year Follow-up
== END 2023-10-23 09:47 | disposition home or self-care (01) ==
PROVIDERS: PCP Family Medicine; Visit Provider Family Medicine
DX: R92.8 Other abnormal and inconclusive findings on diagnostic imaging of breast (principal); R92.323 Mammographic fibroglandular density, bilateral breasts
CPT/HCPCS: 77061; G0279

== ENCOUNTER → 2023-10-30 13:39 | Outpatient (BNVA) | payer MEDICARE, MEDICAID, SELFPAY ==
[2023-08-13 10:16] VITALS: BP 116/70; BMI 31.0
== END ==
PROVIDERS: PCP Family Medicine; Visit Provider Internal Medicine
DX: E11.9 Type 2 diabetes mellitus without complications (principal); I10 Essential (primary) hypertension; R00.2 Palpitations
CPT/HCPCS: 99213

== ENCOUNTER 2023-11-20 06:27 | Outpatient (CLI) | payer MEDICARE, MEDICAID, SELFPAY ==
[2023-08-13 10:16] VITALS: BP 116/70; BMI 31.0
--- NOTE | 2023-11-20 07:00 | CT_ITS ---
WS: [id number] CT HEAD NONCONTRAST HISTORY: S09.90XA - Unspecified injury of head, initial encounter TECHNIQUE: Contiguous axial imaging performed through the brain. Bone and soft tissue windows. Sagitt al and coronal reformats reviewed. All CT scans at [facility] use at least one of these dose optimization techniques: automated exposure control; mA and/or kV adjustment per patient size (includ es targeted exams where dose is matched to clinical indication); or iterative reconstruction. DLP: 1041.39 mGy.cm COMPARISON: 01/10/2023 No acute intracranial hemorrhage, midline shift or mass effect. Moderate bilateral symmetric atrophy and small vessel disease. No prior infarct. Ventricles: Normal size with no hydrocephalus. No inferior displacement of cerebellar tonsils. Paranasal sinuses: As visualized are clear. Mastoid air cells: Well pneumatized. Calvarium and scalp: No fracture. Small posterior RIGHT parietal scalp hematoma. CT/CT head wo con* [id number] IMPRESSION: 1. No acute intracranial hemorrhage or edema. 2. Moderate bilateral symmetric atrophy and small vessel disease. 3. Small posterior RIGHT parietal scalp hematoma.
== END 2023-11-20 06:28 | disposition home or self-care (01) ==
LOC: RAD 06:28
PROVIDERS: PCP Family Medicine; Visit Provider Nurse Practitioner Family
DX: S00.03XA Contusion of scalp, initial encounter (principal); W19.XXXA Unspecified fall, initial encounter; Y92.009 Unspecified place in unspecified non-institutional (private) residence as the place of occurrence of the external cause; G31.89 Other specified degenerative diseases of nervous system; R11.0 Nausea; R42 Dizziness and giddiness; R55 Syncope and collapse
CPT/HCPCS: 70450

== ENCOUNTER → 2025-01-03 13:10 | Outpatient (BNVA) | payer MEDICARE, MEDICAID, SELFPAY ==
[2023-08-13 10:16] VITALS: BP 116/70; BMI 31.0
== END ==
PROVIDERS: PCP Family Medicine; Visit Provider Emergency Medicine
DX: R39.9 Unspecified symptoms and signs involving the genitourinary system (principal); R30.0 Dysuria
CPT/HCPCS: 81000; 87086

== ENCOUNTER → 2025-01-20 08:58 | Outpatient (BNVA) | payer MEDICARE, MEDICAID, OTHER, SELFPAY ==
[2023-08-13 10:16] VITALS: BP 116/70; BMI 31.0
== END ==
PROVIDERS: PCP Family Medicine; Visit Provider Family Medicine
DX: I10 Essential (primary) hypertension (principal); E78.2 Mixed hyperlipidemia; E11.9 Type 2 diabetes mellitus without complications; E03.8 Other specified hypothyroidism; E06.3 Autoimmune thyroiditis; E04.1 Nontoxic single thyroid nodule; G25.81 Restless legs syndrome; K91.2 Postsurgical malabsorption, not elsewhere classified; R31.9 Hematuria, unspecified; D64.9 Anemia, unspecified
CPT/HCPCS: 80053; 80061; 81003; 82306; 82607; 82728; 83036; 83540; 84443; 85025

== ENCOUNTER → 2025-02-04 14:20 | Outpatient (BNVA) | payer MEDICARE, MEDICAID, SELFPAY ==
[2023-08-13 10:16] VITALS: BP 116/70; BMI 31.0
== END ==
PROVIDERS: PCP Family Medicine
DX: R52 Pain, unspecified (principal)
CPT/HCPCS: 87400; 87426